=== PATIENT | female | born 1955 | race Caucasian/White ===

== ENCOUNTER 2016-11-17 15:01 | Inpatient (IN) | payer OTHER ==
[~2016-11-17] VITALS: Ht 170.2 cm; Wt 93.2 kg
[~2016-11-17 15:01] MED LIST: /ADVA50050 INH; /MOXI40TA OR; /PANT40TA OR; /TIOT18INH INH; ACET65TA OR; AMLO10TA OR; BACI500O8 TOP; CALCTAB93 PO; DIOV40TA PO; HYDR-727 PO; IPRASOL4 NEB; MUCI600T34 PO; NASONEX; OCEAN NASAL SPRAY; PRAV40TA PO; PRED10TA PO; PRED10TA2 OR; PRED5TAB OR; PREDPOW10 PO; TUMS500C OR; VENTAER INH; VICO5TAB OR
[2016-11-17] MEDS ORDERED: ALBUTEROL SULFATE 2.5 MG/0.5 ML INH NEB SOLN As Ordered ONE (18:08)
[2016-11-17] MEDS ORDERED: IPRATROPIUM 0.5MG/ALBUTEROL 2.5MG INH SOL UD 3ML (DUONEB)(J7620) As Ordered ONE (18:08)
[2016-11-17] MEDS ORDERED: methylPREDNISolone INJ 125 MG/2 ML VIAL (J2930) As Ordered ONE (18:39)
--- NOTE | 2016-11-17 19:10 | REP ---
Chest x-ray: Two views: History: Shortness of breath. Comparison chest x-ray: 10/07/2016. Findings: EKG monitoring electrodes overlie the chest. The lungs are symmetrically aerated and remain free of infiltrate. Pleural angles are sharp. Heart is at the upper range of normal in size unchanged. The aorta is tortuous. No pleural effusion or pulmonary edema seen. Impression: Borderline size heart. Otherwise no acute disease. Signed by Surinder Tracy MD 11/17/2016 07:48 P
[2016-11-17 19:26] LABS: EOS # 0.1 K/mm3 (0.0-0.50); EOS % 0.4 % (0.0-3.0); LARGE UNSTAINED CELL # 0.2 K/mm3 (0.0-0.4); LARGE UNSTAINED CELL % 1.1 % (0.0-4.0); LYMPH # 1.8 K/mm3 (1.5-4.5); LYMPH % 11.1 % (24.0-44.0); MEAN CORPUSCULAR HEMOGLOBIN 22.2 pg (27.0-33.0); MEAN CORPUSCULAR HGB CONC 28.8 g/dl (32.0-36.5); MEAN CORPUSCULAR VOLUME 76.8 fl (80.0-96.0); MONO # 0.6 K/mm3 (0.0-0.8); MONO % 3.8 % (0.0-5.0); NEUTROPHILS # 13.6 K/mm3 (1.8-7.7); NEUTROPHILS % 83.6 % (36.0-66.0); PLATELET COUNT, AUTOMATED 262 k/mm3 (150-450); RED CELL DISTRIBUTION WIDTH 18.9 % (11.5-14.5); WHITE BLOOD COUNT 16.2 K/mm3 (4.0-10.0)
[2016-11-17 19:27] LABS: ADD MORPHOLOGY? YES
[2016-11-17 20:07] LABS: DIFF SLIDE NUMBER 342
[2016-11-17 20:08] LABS: ANISOCYTOSIS 1+; HYPOCHROMASIA 1+
[2016-11-17 20:09] LABS: MICROCYTOSIS 1+; STOMATOCYTES 1+
[2016-11-17] MEDS ORDERED: SYMB16INH INH (20:26)
[2016-11-17] MEDS ORDERED: FURO40TA2 PO (20:26)
[2016-11-17] MEDS ORDERED: KEFL500C7 PO (20:26)
[2016-11-17] MEDS ORDERED: ALBU17IN INH (20:26)
[2016-11-17] MEDS ORDERED: ALBU83IN INH (20:26)
[2016-11-17] MEDS ORDERED: CALC600T10 PO (20:26)
[2016-11-17] MEDS ORDERED: PRED20TA PO (20:26)
[2016-11-17 20:58] LABS: ANION GAP 8 MEQ/L (8-16); BLOOD UREA NITROGEN 22 MG/DL (7-18); CALCIUM LEVEL 9.2 MG/DL (8.8-10.2); CARBON DIOXIDE LEVEL 34 MEQ/L (21-32); CHLORIDE LEVEL 100 MEQ/L (98-107); CREATININE FOR GFR 1.01 MG/DL (0.55-1.02); GLOMERULAR FILTRATION RATE 59.1 (>45); GLUCOSE, FASTING 103 MG/DL (80-110); POTASSIUM SERUM 3.9 MEQ/L (3.5-5.1); SODIUM LEVEL 142 MEQ/L (136-145)
--- NOTE | 2016-11-17 21:50 | REPUSA ---
Clinical history: Pain, swelling. Findings: The common femoral, superficial femoral, popliteal, and other deep venous structures compre ss normally and demonstrate normal color Doppler flow. Normal venous waveforms with augmentation are seen. Impression: No evidence of deep vein thrombosis in either femoral popliteal venous system.
[2016-11-17] MEDS ORDERED: METOCLOPRAMIDE INJ 10MG/2ML VIAL (J2765) IV PRN (22:15)
[2016-11-17] MEDS ORDERED: ALBUTEROL SULFATE 2.5 MG/0.5 ML INH NEB SOLN NEB PRN (22:15)
[2016-11-17 22:37] LABS: RETIC HEMOGLOBIN CONTENT CHr 25.7 PG (24-36); RETICULOCYTE ABSOLUTE ADVIA212 83 x10(9)/L (17-77)
[2016-11-17 22:50] LABS: FERRITIN 12 NG/ML (8-252); PERCENT SATURATION 6.7 % (13.2-37.4); TOTAL IRON BINDING CAPACITY 582 UG/DL (250-450); TOTAL PROTEIN 6.5 GM/DL (6.4-8.2)
[2016-11-17] MEDS ORDERED: ISOVUE-370 76% 100ML VIAL (Q9967) As Ordered ONE (23:32)
--- NOTE | 2016-11-17 23:54 | EDDOCDS ---
Physician Documentation [facility] Name: Prachi Fields Age: 61 yrs Sex: Female : 1955 Arrival Date: 11/17/2016 Time: 15:01 Bed 18 Private MD: Lucas Barr Abdul Disposition: 11/17/16 21:58 Hospitalization ordered by Joie Mahan for Inpatient Admission. Preliminary diagnosis are Atrial fibrillation and flutter - with rapid ventricular rate, Chronic obstructive pulmonary disease with (acute) exacerbation, Anemia, unspecified. - Bed requested for M ICU. - Status is Inpatient Admission. joe - Condition is Stable. - Problem is new. - Symptoms are unchanged. Historical: - Allergies: Erythromycin (Upset stomach); - Home Meds: 1. Albuterol Inhl prn 2. amlodipine 10 mg daily hasnt filled per pharmacist since january 2016 3. furosemide 40 mg Oral tab 1 tab once daily 4. prednisone 10 mg oral tab 1 tab 3 times per day 5. Symbicort 160-4.5 mcg/actuation inhalation HFAA 2 times per day 6. cephalexin 500 mg Oral cap 1 cap every 6 hours - PMHx: COPD; Hypercholesterolemia; Hypertension; Asthma; - PSHx: Ankle Arthroscopy- Left; - Social history: Smoking status: Patient states former smoker of tobacco. No barriers to communication noted, The patient speaks fluent Estonian. - Family history: Not pertinent. - : The pt / caregiver states he / she is not on anticoagulants. Home medication list is obtained from the patient. - Exposure Risk Screening:: None identified. Vital Signs: 11/17 15:03 BP 201 / 96; Pulse 106; Resp 22 S; Temp 97.8(O); Pulse Ox 100% on R/A; Weight 89.81 kg dd6 / 198 lbs (R); Height 5 ft. 7 in. (170.18 cm) (R); 17:40 BP 189 / 90; Pulse 131; Resp 24; Temp 98.0(TE); Pulse Ox 97% on R/A; Pain 10/10; ar3 17:47 BP 136 / 90 (auto/); jf3 17:50 Pulse 138 MON; Pulse Ox 97% ; jf3 18:02 BP 149 / 102 (auto/); jf3 18:03 Pulse 126 MON; Pulse Ox 97% ; jf3 18:17 BP 182 / 112 (auto/); jf3 18:18 Pulse 142 MON; Pulse Ox 98% ; jf3 18:32 BP 152 / 86 (auto/); jf3 18:32 Pulse 130 MON; Pulse Ox 95% ; jf3 18:46 Pulse 128 MON; Pulse Ox 96% ; jf3 18:47 BP 155 / 108 (auto/); jf3 19:02 BP 167 / 78 (auto/); jf3 19:02 Pulse 126 MON; Pulse Ox 94% ; jf3 19:17 BP 159 / 75 (auto/); jf3 19:17 Pulse 128 MON; Pulse Ox 94% ; jf3 19:32 BP 133 / 79 (auto/); jf3 19:32 Pulse 118 MON; Pulse Ox 95% ; jf3 19:47 BP 138 / 71 (auto/); jf3 19:47 Pulse 118 MON; Pulse Ox 95% ; jf3 20:02 BP 139 / 60 (auto/); jf3 20:02 Pulse 118 MON; Pulse Ox 95% ; jf3 20:17 BP 136 / 67 (auto/); jf3 20:18 Pulse 100 MON; Pulse Ox 96% ; jf3 20:32 BP 133 / 81 (auto/); jf3 20:32 Pulse 100 MON; Pulse Ox 95% ; jf3 20:47 BP 138 / 79 (auto/); jf3 20:47 Pulse 106 MON; Pulse Ox 96% ; jf3 21:02 BP 148 / 62 (auto/); jf3 21:02 Pulse 102 MON; Pulse Ox 96% ; jf3 21:17 BP 156 / 69 (auto/); jf3 21:17 Pulse 112 MON; Pulse Ox 96% ; jf3 21:17 Pulse 126; jf3 21:17 Pulse 101; jf3 21:32 BP 157 / 76 (auto/); jf3 21:32 Pulse 114 MON; Pulse Ox 96% ; jf3 21:47 BP 153 / 97 (auto/); jf3 21:47 Pulse 114 MON; Pulse Ox 96% ; jf3 22:02 BP 157 / 89 (auto/); jf3 22:02 Pulse 114 MON; Pulse Ox 96% ; jf3 22:17 BP 150 / 75 (auto/); jf3 22:17 Pulse 118 MON; Pulse Ox 95% ; jf3 22:32 BP 154 / 73 (auto/); jf3 22:32 Pulse 112 MON; Pulse Ox 97% ; jf3 22:46 Pulse 124 MON; Pulse Ox 95% ; jf3 22:47 BP 156 / 79 (auto/); jf3 23:01 Pulse 114 MON; Pulse Ox 95% ; jf3 23:02 BP 160 / 108 (auto/); jf3 23:32 BP 160 / 92 (auto/); tm5 23:32 Pulse 122 MON; tm5 15:03 Body Mass Index 31.01 (89.81 kg, 170.18 cm) dd6 MDM: 17:54 Skin Lifter Bacon/Pulse Ox/q 30 min VS ordered. br1 17:54 IV Saline Lock ordered. br1 17:54 Rhythm Strip to chart ordered. br1 17:54 Undress patient appropriately for examination ordered. br1 17:55 Albuterol-Ipratropium 1 neb Nebulizer every 20 minutes x3 ordered. br1 17:55 Solu-MEDROL 125 mg IVP once ordered. br1 17:55 Call Respiratory ordered. br1 17:55 B-Type Natiuretic Peptide Ordered. EDMS 17:55 Basic Metabolic Profile Ordered. EDMS 17:55 CBC with Diff Ordered. EDMS 17:55 Cardiac Injury Profile Ordered. EDMS 17:55 Troponin Ordered. EDMS 17:55 D-Dimer Quant Ordered. EDMS 17:55 Chest, 2 View (pa\E\lat) Ordered. EDMS 17:55 ECG WITH READING ER PHYS+CARDIAG ordered. EDMS 17:56 -Influenza A&B Rapid Antigen - Nose Ordered. EDMS 18:04 Call Respiratory complete. deg 18:11 Diltiazem 10 mg IVP once; administer over 2 minutes ordered. br1 18:28 [facility] Payment Agreement was scanned into Smart Panel and attached to record. zo 18:28 Financial registration complete. zo 19:29 RBC MORPH PROF NO CHARGE Ordered. EDMS 19:31 Diltiazem 20 mg IVP once; administer over 2 minutes ordered. br1 19:34 BED REQUEST+ADM ordered. EDMS 20:35 B-Type Natiuretic Peptide Reviewed. br1 20:35 CBC with Diff Reviewed. br1 20:35 D-Dimer Quant Reviewed. br1 20:35 -Influenza A&B Rapid Antigen - Nose Reviewed. br1 20:35 RBC MORPH PROF NO CHARGE Reviewed. br1 20:35 Chest, 2 View (pa\E\lat) Reviewed. br1 20:37 Ultrasound Bilateral LE R/O DVT Ordered. EDMS 21:03 Basic Metabolic Profile Reviewed. br1 21:03 Cardiac Injury Profile Reviewed. br1 21:03 Troponin Reviewed. br1 21:06 CT Chest Angio R/O PE Ordered. EDMS 21:53 Repeat EKG (put time details section) ordered. br1 21:55 Repeat EKG (put time details section) complete. ml3 21:56 ECG WITH READING ER PHYS ordered. EDMS 22:20 VITAMIN B12 LEVEL Ordered. EDMS 22:21 FOLATE Ordered. EDMS 22:21 IRON (FE) Ordered. EDMS 22:21 FERRITIN Ordered. EDMS 22:21 TOTAL IRON BINDING CAPACIT Ordered. EDMS 22:21 SERUM PROTEIN ELECTROPHORESIS Ordered. EDMS 22:21 CBC WITH DIFFERENTIAL Ordered. EDMS 22:21 BASIC METABOLIC PROFILE Ordered. EDMS 22:25 Admission / Observation Status ordered. EDMS 22:25 REGULAR DIET ordered. EDMS 22:32 RETICULOCYTE COUNT Ordered. EDMS Administered Medications: 17:56 Drug: Albuterol-Ipratropium 1 neb [ipratropium-albuterol 0.5 mg-3 mg(2.5 mg base)/3 mL rs5 nebulization soln (1 neb)] Route: Nebulizer; 18:02 Drug: Albuterol-Ipratropium 1 neb [ipratropium-albuterol 0.5 mg-3 mg(2.5 mg base)/3 mL rs5 nebulization soln (1 neb)] Route: Nebulizer; 18:12 Drug: Albuterol-Ipratropium 1 neb [ipratropium-albuterol 0.5 mg-3 mg(2.5 mg base)/3 mL rs5 nebulization soln (1 neb)] Route: Nebulizer; 19:16 Drug: Solu-MEDROL 125 mg [Solu-Medrol 500 mg intravenous solution (125 mg)] Route: IVP; jf3 Site: right antecubital; 21:16 Follow up: Response: No Adverse Reaction jf3 19:24 Drug: Diltiazem 10 mg [diltiazem 5 mg/mL intravenous solution (2 mL)] Route: IVP; Site: jf3 right antecubital; 21:17 Follow up: Pulse 126 bpm; Response: No significant change. jf3 20:04 Drug: Diltiazem 20 mg [diltiazem 5 mg/mL intravenous solution (4 mL)] Route: IVP; Site: jf3 right antecubital; 21:17 Follow up: Pulse 101 bpm; Response: HR decreased jf3 Signatures: Dispatcher [employer] EDMS Lola Moses, [employer] deg Barry, Emily Singh RN Brittanie Palma, [employer] ml3 Trino Barillas Brian, MD MD br1 Sara Case RN RN [id number] Johnie Lester RN RN jf3 Phoebe Guardado RN RN lmg Spurling, Richard RT rs5 The chart was reviewed and I authenticate all verbal orders and agree with the evaluation and treatment provided.Corrections: (The following items were deleted from the chart) 22:32 22:21 RETICULOCYTE COUNT ordered. EDMS EDMS Attachments: 18:28 [facility] Payment Agreement zo [id number]
--- NOTE | 2016-11-17 23:55 | EDDOCDS ---
Nurse's Notes [facility] Name: Prachi Fields Age: 61 yrs Sex: Female : 1955 Arrival Date: 11/17/2016 Time: 15:01 Bed 18 Private MD: Lucas Barr Abdul Diagnosis: Atrial fibrillation and flutter-with rapid ventricular rate;Chronic obstructive pulmonary disease with (acute) exacerbation;Anemia, unspecified Presentation: 11/17 15:13 Presenting complaint: Patient states: that she has been wheezing for the past 2 weeks. ms18 Pt has seen her doctor, Dr. Barr, and was given some medications. Pt states that these aren't enough to help her with the wheezing. Adult Sepsis Screening: The patient does not have new or worsening altered mentation. Patient's respiratory rate is less than 22. Systolic blood pressure is greater than 100. Patient has a qSOFA score of 0- Negative Sepsis Screen. Suicide/Homicide risk assessment- the patient denies having any suicidal and/or homicidal ideations and does not present with any other emotional, behavioral or mental health complaints. Status: Patient is not a service order dispatcher or dependent. Transition of care: patient was not received from another setting of care. 15:13 Method Of Arrival: Walkin/Carried/Asstd ms18 15:13 Acuity: BRANNON Level 3 ms18 Triage Assessment: 15:18 General: Appears in no apparent distress, comfortable, obese, Behavior is appropriate ms18 for age, cooperative, pleasant. Pain: Denies pain. HIV screening NA for this visit Offered previously. Neurological: Level of Consciousness is awake, alert, obeys commands, Oriented to person, place, time. Cardiovascular: Chest pain is denied. Respiratory: Onset: The symptoms/episode began/occurred 2 weeks ago, Airway is patent Respiratory effort is even, unlabored, Pt states that her lungs feel "tight" Reports shortness of breath on exertion. Derm: Skin is pink, warm & dry. Historical: - Allergies: Erythromycin (Upset stomach); - Home Meds: 1. Albuterol Inhl prn 2. amlodipine 10 mg daily hasnt filled per pharmacist since january 2016 3. furosemide 40 mg Oral tab 1 tab once daily 4. prednisone 10 mg oral tab 1 tab 3 times per day 5. Symbicort 160-4.5 mcg/actuation inhalation HFAA 2 times per day 6. cephalexin 500 mg Oral cap 1 cap every 6 hours - PMHx: COPD; Hypercholesterolemia; Hypertension; Asthma; - PSHx: Ankle Arthroscopy- Left; - Social history: Smoking status: Patient states former smoker of tobacco. No barriers to communication noted, The patient speaks fluent Estonian. - Family history: Not pertinent. - : The pt / caregiver states he / she is not on anticoagulants. Home medication list is obtained from the patient. - Exposure Risk Screening:: None identified. Screenin:12 Screening information is obtained from the patient. Fall risk: No risks identified. jf3 Assistance ADL's: requires no assistance with activities of daily living. Abuse/DV Screen: The patient / caregiver reports he/she is: not in a situation that causes fear, pain or injury. Nutritional screening: No deficits noted. Advance Directives: There is no active DNR order. home support is adequate. Assessment: 19:26 Adult Sepsis Screening: The patient does not have new or worsening altered mentation. jf3 Patient's respiratory rate is less than 22. Systolic blood pressure is greater than 100. General: Appears in no apparent distress, comfortable, Behavior is cooperative. Pain: Denies pain. Neurological: Level of Consciousness is awake, alert, Oriented to person, place, time. Cardiovascular: Capillary refill < 3 seconds Heart tones S1 S2 present Chest pain is denied. Respiratory: Airway is patent Respiratory effort is even, unlabored, Respiratory pattern is regular, symmetrical, Breath sounds are clear bilaterally. Reports shortness of breath. Derm: Skin is pink, warm & dry. 20:30 General: Appears in no apparent distress, comfortable, Behavior is cooperative, Pt jf3 resting supine on stretcher watching TV. Respirations easy and unlabored. Pt states breathing is improved. Call light in reach. Will continue to monitor. 21:30 General: Appears in no apparent distress, comfortable, Behavior is cooperative, Pt jf3 resting supine on stretcher watching TV. respirations easy and unlabored. Will continue to monitor. 22:30 General: Appears in no apparent distress, comfortable, Behavior is cooperative. Pain: jf3 Denies pain. Neurological: Level of Consciousness is awake, alert, Oriented to person, place, time. Cardiovascular: Capillary refill < 3 seconds. Respiratory: Airway is patent Respiratory effort is even, unlabored, Respiratory pattern is regular, symmetrical. Derm: Skin is pink, warm & dry. 23:44 General: pt returned from CT ready for transfer to PCU. tm5 Vital Signs: 15:03 BP 201 / 96; Pulse 106; Resp 22 S; Temp 97.8(O); Pulse Ox 100% on R/A; Weight 89.81 kg dd6 (R); Height 5 ft. 7 in. (170.18 cm) (R); 17:40 BP 189 / 90; Pulse 131; Resp 24; Temp 98.0(TE); Pulse Ox 97% on R/A; Pain 10/10; ar3 17:47 BP 136 / 90 (auto/); jf3 17:50 Pulse 138 MON; Pulse Ox 97% ; jf3 18:02 BP 149 / 102 (auto/); jf3 18:03 Pulse 126 MON; Pulse Ox 97% ; jf3 18:17 BP 182 / 112 (auto/); jf3 18:18 Pulse 142 MON; Pulse Ox 98% ; jf3 18:32 BP 152 / 86 (auto/); jf3 18:32 Pulse 130 MON; Pulse Ox 95% ; jf3 18:46 Pulse 128 MON; Pulse Ox 96% ; jf3 18:47 BP 155 / 108 (auto/); jf3 19:02 BP 167 / 78 (auto/); jf3 19:02 Pulse 126 MON; Pulse Ox 94% ; jf3 19:17 BP 159 / 75 (auto/); jf3 19:17 Pulse 128 MON; Pulse Ox 94% ; jf3 19:32 BP 133 / 79 (auto/); jf3 19:32 Pulse 118 MON; Pulse Ox 95% ; jf3 19:47 BP 138 / 71 (auto/); jf3 19:47 Pulse 118 MON; Pulse Ox 95% ; jf3 20:02 BP 139 / 60 (auto/); jf3 20:02 Pulse 118 MON; Pulse Ox 95% ; jf3 20:17 BP 136 / 67 (auto/); jf3 20:18 Pulse 100 MON; Pulse Ox 96% ; jf3 20:32 BP 133 / 81 (auto/); jf3 20:32 Pulse 100 MON; Pulse Ox 95% ; jf3 20:47 BP 138 / 79 (auto/); jf3 20:47 Pulse 106 MON; Pulse Ox 96% ; jf3 21:02 BP 148 / 62 (auto/); jf3 21:02 Pulse 102 MON; Pulse Ox 96% ; jf3 21:17 BP 156 / 69 (auto/); jf3 21:17 Pulse 112 MON; Pulse Ox 96% ; jf3 21:17 Pulse 126; jf3 21:17 Pulse 101; jf3 21:32 BP 157 / 76 (auto/); jf3 21:32 Pulse 114 MON; Pulse Ox 96% ; jf3 21:47 BP 153 / 97 (auto/); jf3 21:47 Pulse 114 MON; Pulse Ox 96% ; jf3 22:02 BP 157 / 89 (auto/); jf3 22:02 Pulse 114 MON; Pulse Ox 96% ; jf3 22:17 BP 150 / 75 (auto/); jf3 22:17 Pulse 118 MON; Pulse Ox 95% ; jf3 22:32 BP 154 / 73 (auto/); jf3 22:32 Pulse 112 MON; Pulse Ox 97% ; jf3 22:46 Pulse 124 MON; Pulse Ox 95% ; jf3 22:47 BP 156 / 79 (auto/); jf3 23:01 Pulse 114 MON; Pulse Ox 95% ; jf3 23:02 BP 160 / 108 (auto/); jf3 23:32 BP 160 / 92 (auto/); tm5 23:32 Pulse 122 MON; tm5 15:03 Body Mass Index 31.01 (89.81 kg, 170.18 cm) dd6 Vitals: 15:03 Log In Time: November 17, 2016 at 15:01. dd6 ED Course: 15:02 Patient visited by Blayne Adams PCA. dd6 15:02 Lucas Barr is Private Physician. dd6 15:02 Patient moved to Waiting dd6 15:04 Patient moved to Pre RCE dd6 15:15 Triage Initiated ms18 17:44 Patient moved to 18 ms18 17:47 Julián Najera MD is Attending Physician. br1 17:50 The patient / caregiver is instructed regarding the plan of care and ED course. jf3 17:50 Inserted saline lock: 20 gauge in right antecubital area The patient tolerated the jf3 procedure well. No procedures done that require assistance. 17:54 Patient visited by Julián Najera MD. br1 18:07 Patient has correct armband on for positive identification. Placed in gown. Bed in low ct3 position. Call light in reach. Side rails up X2. vehicle monitor technician on. Pulse ox on. NIBP on. 18:07 EKG done. (by ED staff). Reviewed by Julián Najera MD. ct3 18:08 Patient visited by Jayne Way PCA. ct3 18:28 [facility] Payment Agreement was scanned into [employer] and attached to record. zo 18:56 Jeannette Lundberg,RN is Primary Nurse. ko2 19:11 Patient visited by Leyda Noyola PCA. berna 19:12 Patient visited by Alin Carter PCA. kb5 19:13 -Influenza A&B Rapid Antigen - Nose Sent. jf3 19:13 D-Dimer Quant Sent. jf3 19:13 Troponin Sent. jf3 19:13 Cardiac Injury Profile Sent. jf3 19:13 CBC with Diff Sent. jf3 19:13 Basic Metabolic Profile Sent. jf3 19:13 B-Type Natiuretic Peptide Sent. jf3 19:28 Patient visited by Johnie Lester,[place]. jf3 19:37 RBC MORPH PROF NO CHARGE Sent. jf3 19:46 Chest, 2 View (pa\\E\\lat) Returned. EDMS 20:10 Patient visited by Alin Carter PCA. kb5 20:12 Patient visited by Johnie Lester,[place]. jf3 20:52 Patient moved to Ultrasound dmg 21:16 Patient visited by Johnie Lester,[place]. jf3 21:21 Patient moved to 18 dmg 21:58 Joie Mahan is Hospitalizing Provider. br1 22:00 Patient visited by Alisha Clinton PCA. cln 22:00 EKG done. (by ED staff). Reviewed by Julián Najera MD. cln 22:16 Ultrasound Bilateral LE R/O DVT Returned. EDMS 22:49 Patient visited by Johnie Lester,[place]. jf3 Administered Medications: 17:56 Drug: Albuterol-Ipratropium 1 neb [ipratropium-albuterol 0.5 mg-3 mg(2.5 mg base)/3 mL rs5 nebulization soln (1 neb)] Route: Nebulizer; 18:02 Drug: Albuterol-Ipratropium 1 neb [ipratropium-albuterol 0.5 mg-3 mg(2.5 mg base)/3 mL rs5 nebulization soln (1 neb)] Route: Nebulizer; 18:12 Drug: Albuterol-Ipratropium 1 neb [ipratropium-albuterol 0.5 mg-3 mg(2.5 mg base)/3 mL rs5 nebulization soln (1 neb)] Route: Nebulizer; 19:16 Drug: Solu-MEDROL 125 mg [Solu-Medrol 500 mg intravenous solution (125 mg)] Route: IVP; jf3 Site: right antecubital; 21:16 Follow up: Response: No Adverse Reaction jf3 19:24 Drug: Diltiazem 10 mg [diltiazem 5 mg/mL intravenous solution (2 mL)] Route: IVP; Site: jf3 right antecubital; 21:17 Follow up: Pulse 126 bpm; Response: No significant change. jf3 20:04 Drug: Diltiazem 20 mg [diltiazem 5 mg/mL intravenous solution (4 mL)] Route: IVP; Site: jf3 right antecubital; 21:17 Follow up: Pulse 101 bpm; Response: HR decreased jf3 RT: 18:12 Initial Med Neb Given as ordered Subsequent Med Neb Given as ordered Patient was rs5 reinforced on procedure Patient tolerated procedure well without adverse effect. Respiratory: Respiratory effort is even, unlabored, Respiratory pattern is regular symmetrical, Breath sounds are diminished Breath sounds with wheezes bilaterally. Reports shortness of breath on exertion cough that is non-productive. Order Results: Lab Order: B-Type Natiuretic Peptide; SPEC'M 11/17/16 19:10 Test: BRAIN NATRIURETIC PEPTIDE; Value: 502; Range: <100; Abnormal: Above high normal; Units: PG/ML; Status: F Lab Order: Basic Metabolic Profile; SPEC'M 11/17/16 19:10 Test: GLUCOSE, FASTING; Value: 103; Range: 80-110; Units: MG/DL; Status: F Test: BLOOD UREA NITROGEN; Value: 22; Range: 7-18; Abnormal: Above high normal; Units: MG/DL; Status: F Test: CREATININE FOR GFR; Value: 1.01; Range: 0.55-1.02; Units: MG/DL; Status: F Test: GLOMERULAR FILTRATION RATE; Value: 59.1; Range: >45; Status: F Test: SODIUM LEVEL; Value: 142; Range: 136-145; Units: MEQ/L; Status: F Test: POTASSIUM SERUM; Value: 3.9; Range: 3.5-5.1; Units: MEQ/L; Status: F Test: CHLORIDE LEVEL; Value: 100; Range: 98-107; Units: MEQ/L; Status: F Test: CARBON DIOXIDE LEVEL; Value: 34; Range: 21-32; Abnormal: Above high normal; Units: MEQ/L; Status: F Test: ANION GAP; Value: 8; Range: 8-16; Units: MEQ/L; Status: F Test: CALCIUM LEVEL; Value: 9.2; Range: 8.8-10.2; Units: MG/DL; Status: F Test Note: ; Units are mL/min/1.73 m2 Chronic Kidney Disease Staging per NKF: Stage I & II GFR >=60 Normal to Mildly Decreased Stage III GFR 30-59 Moderately Decreased Stage IV GFR 15-29 Severely Decreased Stage V GFR <15 Very Little GFR Left ESRD GFR <15 on [employer] Lab Order: CBC with Diff; SPEC'M 11/17/16 19:10 Test: WHITE BLOOD COUNT; Value: 16.2; Range: 4.0-10.0; Abnormal: Above high normal; Units: K/mm3; Status: F Test: RED BLOOD COUNT; Value: 3.83; Range: 4.00-5.40; Abnormal: Below low normal; Units: M/mm3; Status: F Test: HEMOGLOBIN; Value: 8.5; Range: 12.0-16.0; Abnormal: Below low normal; Units: g/dl; Status: F Test: HEMATOCRIT; Value: 29.4; Range: 36.0-47.0; Abnormal: Below low normal; Units: %; Status: F Test: MEAN CORPUSCULAR VOLUME; Value: 76.8; Range: 80.0-96.0; Abnormal: Below low normal; Units: fl; Status: F Test: MEAN CORPUSCULAR HEMOGLOBIN; Value: 22.2; Range: 27.0-33.0; Abnormal: Below low normal; Units: pg; Status: F Test: MEAN CORPUSCULAR HGB CONC; Value: 28.8; Range: 32.0-36.5; Abnormal: Below low normal; Units: g/dl; Status: F Test: RED CELL DISTRIBUTION WIDTH; Value: 18.9; Range: 11.5-14.5; Abnormal: Above high normal; Units: %; Status: F Test: PLATELET COUNT, AUTOMATED; Value: 262; Range: 150-450; Units: k/mm3; Status: F Test: NEUTROPHILS %; Value: 83.6; Range: 36.0-66.0; Abnormal: Above high normal; Units: %; Status: F Test: LYMPH %; Value: 11.1; Range: 24.0-44.0; Abnormal: Below low normal; Units: %; Status: F Test: MONO %; Value: 3.8; Range: 0.0-5.0; Units: %; Status: F Test: EOS %; Value: 0.4; Range: 0.0-3.0; Units: %; Status: F Test: BASO %; Value: 0.0; Range: 0.0-1.0; Units: %; Status: F Test: LARGE UNSTAINED CELL %; Value: 1.1; Range: 0.0-4.0; Units: %; Status: F Test: NEUTROPHILS #; Value: 13.6; Range: 1.8-7.7; Abnormal: Above high normal; Units: K/mm3; Status: F Test: LYMPH #; Value: 1.8; Range: 1.5-4.5; Units: K/mm3; Status: F Test: MONO #; Value: 0.6; Range: 0.0-0.8; Units: K/mm3; Status: F Test: EOS #; Value: 0.1; Range: 0.0-0.50; Units: K/mm3; Status: F Test: BASO #; Value: 0.0; Range: 0.0-0.2; Units: K/mm3; Status: F Test: LARGE UNSTAINED CELL #; Value: 0.2; Range: 0.0-0.4; Units: K/mm3; Status: F Test: PLATELET ESTIMATE; Range: NORMAL; Status: I Lab Order: Cardiac Injury Profile; SPEC'M 11/17/16 19:10 Test: CPK CREATINE PHOSPHOKINASE; Value: 32; Range: 26-192; Units: U/L; Status: F Test: CK-MB VALUE MASS; Value: 1.9; Range: 0.0-3.6; Units: NG/ML; Status: F Test: MB/CK RELATIVE INDEX; Value: 5.93; Range: < OR =4; Abnormal: Above high normal; Status: F Test Note: ; DIAGNOSIS CRITERIA MMB ng/ml Relative Index (RI) NON-AMI < or = 5 N/A [place] > 5 < or = 4 AMI > 5 > 4 Lab Order: Troponin; SPEC'M 11/17/16 19:10 Test: TROPONIN I; Value: < 0.02; Range: < 0.10; Units: NG/ML; Status: F Test Note: ; Troponin I Reference Interval for HDmessaging LOCI: 99th Percentile= 0.00-0.045 ng/ml Risk Stratification: <= 0.10 ng/ml Decreased Risk for Adverse Clinical Events. 0.10-1.50 ng/ml Increased Risk for Adverse Clinical Events. Evaluation of additional criterion and/or repeat testing in 2-6 hours is suggested to rule out myocardial damage. >= 1.50 ng/ml Indicative of Myocardial Injury. Lab Order: D-Dimer Quant; SPEC'M 11/17/16 19:10 Test: D-DIMER QUANT; Value: 1337.7; Range: <500; Abnormal: Above high normal; Units: ng/ml; Status: F Lab Order: -Influenza A&B Rapid Antigen - Nose; SPEC'M 11/17/16 19:10 Test: INFLUENZA A RAPID SCR by ICA; Value: INFLUENZA A RESULTS NEGATIVE; Status: F Test: INFLUENZA A RAPID SCR by ICA; Value: Comments:; Status: F Test: INFLUENZA B RAPID SCR by ICA; Value: INFLUENZA B RESULTS NEGATIVE; Status: F Test Note: ; The Influenza test is a direct rapid immunoassay for the qualitative detection of Influenza viral antigen. Cell culture (Viral Culture) testing should be considered to confirm NEGATIVE results and to assist in detecting other viruses that can provide similar clinical symptoms. Please contact the lab within 24 hours ([phone]) if confirmatory testing is desired. Lab Order: RBC MORPH PROF NO CHARGE; SPEC'M 11/17/16 19:10 Test: HYPOCHROMASIA; Value: 1+; Status: F Test: ANISOCYTOSIS; Value: 1+; Status: F Test: MICROCYTOSIS; Value: 1+; Status: F Test: STOMATOCYTES; Value: 1+; Status: F Test: PLATELET ESTIMATE; Value: NORMAL; Range: NORMAL; Status: F Lab Order: VITAMIN B12 LEVEL; [facility] 11/17/16 22:33 Test: VITAMIN B12 LEVEL; Range: 247-911; Units: PG/ML; Status: I Lab Order: FOLATE; [facility] 11/17/16 22:33 Test: FOLATE; Range: >5.4; Units: NG/ML; Status: I Lab Order: FERRITIN; [facility] 11/17/16 22:33 Test: FERRITIN; Value: 12; Range: 8-252; Units: NG/ML; Status: F Lab Order: TOTAL IRON BINDING CAPACIT; [facility] 11/17/16 22:33 Test: IRON (FE); Value: 39; Range: 50-170; Abnormal: Below low normal; Units: UG/DL; Status: F Test: TOTAL IRON BINDING CAPACITY; Value: 582; Range: 250-450; Abnormal: Above high normal; Units: UG/DL; Status: F Test: PERCENT SATURATION; Value: 6.7; Range: 13.2-37.4; Abnormal: Below low normal; Units: %; Status: F Lab Order: SERUM PROTEIN ELECTROPHORESIS; [facility] 11/17/16:33 Test: ALBUMIN %; Range: 55.8-66.1; Units: %; Status: I Test: PBWQN-7-ATURWQXN %; Range: 2.9-4.9; Units: %; Status: I Test: SHATR-6-TCHSHBFHP %; Range: 7.1-11.8; Units: %; Status: I Test: QZAA-5-XFMAVOULX %; Range: 4.7-7.2; Units: %; Status: I Test: YHGX-4-BEXLYHRRR %; Range: 3.2-6.5; Units: %; Status: I Test: GAMMA GLOBULIN %; Range: 11.1-18.8; Units: %; Status: I Test: ALBUMIN; Range: 3.29-5.55; Units: GM/DL; Status: I Test: KDSDD-2-LOLPPULYU; Range: 0.17-0.41; Units: GM/DL; Status: I Test: YWSBM-4-BJQWFFROF; Range: 0.42-0.99; Units: GM/DL; Status: I Test: KVEE-6-PKLKOGTUZ; Range: 0.28-0.60; Units: GM/DL; Status: I Test: BBAT-4-OJFMVVTEN; Range: 0.19-0.55; Units: GM/DL; Status: I Test: GAMMA GLOBULINS; Range: 0.65-1.58; Units: GM/DL; Status: I Test: TOTAL PROTEIN; Value: 6.5; Range: 6.4-8.2; Units: GM/DL; Status: F Test: SPEP INTERPRETATION; Status: I Lab Order: RETICULOCYTE COUNT; SPEC'M 11/17/16 19:10 Test: RETICULOCYTE % [id number]; Value: 2.10; Range: 0.5-1.5; Abnormal: Above high normal; Units: %; Status: F Test: RETICULOCYTE ABSOLUTE [id number]; Value: 83; Range: 17-77; Abnormal: Above high normal; Units: x10(9)/L; Status: F Test: RETIC HEMOGLOBIN CONTENT CHr; Value: 25.7; Range: 24-36; Units: PG; Status: F Radiology Order: Chest, 2 View (pa\\E\\lat) Test: Chest, 2 View (pa\\E\\lat) REASON FOR EXAMINATION: Shortness of Breath; Chest x-ray: Two views:; ; History: Shortness of breath.; ; Comparison chest x-ray: 10/07/2016.; ; Findings: EKG monitoring electrodes overlie the chest. The lungs are; symmetrically aerated and remain free of infiltrate. Pleural angles are sharp.; Heart is at the upper range of normal in size unchanged. The aorta is tortuous.; No pleural effusion or pulmonary edema seen.; ; Impression:; ; Borderline size heart. Otherwise no acute disease.; ; ; Signed by; Surinder Tracy MD 11/17/2016 07:48 P; Radiology Order: Ultrasound Bilateral LE R/O DVT Test: Ultrasound Bilateral LE R/O DVT REASON FOR EXAMINATION: Deformity/Swelling; ; Clinical history: Pain, swelling.; Findings: The common femoral, superficial femoral, popliteal, and other deep venous structures compre; ss normally and demonstrate normal color Doppler flow. Normal venous waveforms with augmentation are; seen.; Impression:; No evidence of deep vein thrombosis in either femoral popliteal venous system.; ; Outcome: 21:58 Decision to Hospitalize by Provider. br1 23:16 Discharge Assessment: patient administered narcotics - no. The following High Risk [facility] Discharge criteria are identified: None. Admitted to ICU accompanied by nurse, accompanied by tech, via stretcher, on monitor, with chart. Condition: stable. CT Study completed. Ultrasound Study completed. Admission hand-off: Report called to Winter Farias RN. Property :Personal belongings accompany Pt. 23:53 Patient left the ED. joe Signatures: Dispatcher [employer] EDMS Emily Reddy RN RN jan Gunn, Deanne dmg Olin, Zoeann zo Bancroft, Kristopher, BELT AND LINK ASSEMBLY SUPERVISOR BEL[employer] AND [employer]INK ASSEMBLY SUPERVISOR kb5 Julián Najera MD MD br1 Blayne Adams, BELT AND LINK ASSEMBLY SUPERVISOR [employer]INK ASSEMBLY SUPERVISOR dd6 Nicole Rodrigueza, BELT AND LINK ASSEMBLY SUPERVISOR [employer]INK ASSEMBLY SUPERVISOR ar3 Leyda Noyola, BELT AND LINK ASSEMBLY SUPERVISOR BELT AND LINK ASSEMBLY SUPERVISOR berna Way Jayne, BELT AND LINK ASSEMBLY SUPERVISOR BELT AND LINK ASSEMBLY SUPERVISOR ct3 Ricardo Soto,RT RT rs5 Jeannette Lundberg,RN RN ko2 Sara Case,RN RN ms18 Johnie Lester,RN RN jf3 Alisha Clinton, BELT AND LINK ASSEMBLY SUPERVISOR BELT AND LINK ASSEMBLY SUPERVISOR cln Peyton Duke,RN RN tm5 MTDD
[2016-11-18] VITALS: BP 154/83
--- NOTE | 2016-11-18 | REPUSA ---
CT angiogram of the chest Clinical statement: Chest pain and shortness of breath. Technique: Multiple axial CT images were obtained from the thoracic inlet through the upper abdomen a fter a bolus administration of nonionic intravenous contrast. Coronal and sagittal reconstructions we re also obtained. Comparison: 12/14/2011. Findings: The pulmonary arteries are well-opacified with contrast, with no intraluminal filling defec ts to suggest embolism. The thoracic aorta is unremarkable. Thyroid gland is within normal limits. Th ere is no thoracic lymphadenopathy. There are no pericardial or pleural effusions. The lungs are tamanna r. Limited imaging of the upper abdomen is unremarkable. There are no suspicious osseous lesions. Impression: Unremarkable CT examination of the chest. No evidence of pulmonary embolism.
[2016-11-18] MEDS: methylPREDNISolone INJ 40 MG/1 ML VIAL (J2920) IV SCH ×4 (00:24→18:04)
[2016-11-18] MEDS: CEPHALEXIN 500 MG CAP PO SCH ×5 (00:24→23:52)
[2016-11-18] MEDS: IPRATROPIUM 0.5MG/ALBUTEROL 2.5MG INH SOL UD 3ML (DUONEB)(J7620) NEB SCH ×4 (02:05→20:00)
--- NOTE | 2016-11-18 03:25 | HPE ---
DATE OF ADMISSION: 11/17/2016 PRIMARY CARE PROVIDER: Dr. Radha Barr CHIEF COMPLAINT: Increasing shortness of breath and wheezing for two weeks. PAST MEDICAL HISTORY: 1. Chronic obstructive pulmonary disease (COPD). 2. Recent history of bilateral cellulitis getting oral antibiotics at this point. 3. Chronic anemia. 4. Diastolic heart failure. 5. Diverticulosis. 6. Hypertension. 7. Hypercholesterolemia. 8. Asthma. HISTORY OF PRESENT ILLNESS: This is a 61-year-old female who has been gradually developing worsening of shortness of breath over the past two weeks with increased wheezing requiring more nebulizers. Patient also had bilateral lower extremity cellulitis for which she got one week of intramuscular (IM) antibiotics from the primary medical doctor (PMD) and currently she is taking cephalexin by mouth. On , she went for her IM injection when she complained of worsening shortness of breath. At that time, she was prescribed prednisone 30 mg daily; however, this morning her breathing was very bad, so she took 40 mg and even with that her breathing did not improve, so she came to the emergency room for evaluation. Patient denied any fever or chills. Does have some dry cough. Denied any nausea, vomiting, or abdominal pain. She has been having some diarrhea after she started taking the antibiotics. She says her legs are 95% better. In the emergency department (ED), the patient had a chest x-ray which showed chronic changes; no acute disease. Also, patient had a deep vein thrombosis (DVT) scan done of both lower extremities because of elevated D-dimer, which was negative. Patient felt better after nebulizers. Patient was also noted to have atrial fibrillation (AFib) with rapid ventricular response (RVR) and was given diltiazem IV with improvement in heart rate from 130s to 110s. Subsequently, hospitalist service was consulted for admission for COPD exacerbation and AFib with RVR. PAST SURGICAL HISTORY: Ankle arthroscopy. ALLERGIES: ERYTHROMYCIN, causes upset stomach. SOCIAL HISTORY: Former smoker. Does not abuse alcohol or drugs. FAMILY HISTORY: Nothing pertinent. HOME MEDICATIONS: - albuterol MDI two puffs inhalation four times a day as needed - albuterol sulfate 2.5 mg in nebulizers four times a day as needed - Symbicort 160/4.5 two puffs inhalation twice a day - calcium 1800 mg by mouth daily - cephalexin 500 mg by mouth every six hours - Lasix 40 mg daily - prednisone 40 mg daily REVIEW OF SYSTEMS: All 10-point review of systems were negative except those mentioned in history of present illness (HPI). PHYSICAL EXAMINATION: VITAL SIGNS: Blood pressure 139/60, pulse 110, respiratory rate 22, temperature 98, pulse oximetry 95% in room air. GENERAL: Patient awake, alert, oriented times three, sitting up in bed in no acute distress. HEENT: Normocephalic, atraumatic. Moist mucous membranes. Anicteric eyes. CHEST: Clear to auscultation. Good air entry. Some faint wheezing present. CARDIOVASCULAR: S1, S2 irregular, tachycardic. No rub, murmur, or gallop. ABDOMEN: Obese, soft, nontender. Bowel sounds present. EXTREMITIES: No edema. LABORATORY DATA: WBC 16.2, hemoglobin 8.5, platelets 262. Reticulocyte count 2.1% without correction. Sodium 142, potassium 3.9, chloride 100, bicarbonate 34, BUN 22, creatinine 1, glucose 103, calcium 9.2. Cardiac enzymes negative, BNP 502. Ferritin 12, iron 39. TSH 6.7%. ASSESSMENT AND PLAN: This is a 61-year-old female admitted for a atrial fibrillation (AFib) with rapid ventricular response (RVR) and chronic obstructive pulmonary disease (COPD) exacerbation. 1. COPD exacerbation. We will continue with albuterol ipratropium, budesonide nebulizers as well as IV methylprednisolone. We will also continue with cephalexin as patient has already been taking this for cellulitis. We will also give formoterol nebulizers. 2. AFib with RVR. We will start the patient on diltiazem 30 mg every six hours. We will avoid metoprolol at this point because of COPD exacerbation. 3. History of cellulitis. Completing course with Keflex will continue. 4. Chronic diastolic congestive heart failure. We will continue with Lasix. 5. Hypertension. We will hold amlodipine and change to diltiazem, both for AFib as well as hypertension. 6. Anemia. Patient has been having chronic anemia for the past two years, shows iron deficiency. Had colonoscopy more than 10 years ago, which showed diverticulosis. We will start the patient on iron supplementation; however, we will order fecal occult blood and patient will need colonoscopy as an outpatient. Also, have ordered serum protein electrophoresis. 7. Leukocytosis, possibly related to steroid use as an outpatient. We will continue to monitor. 8. Deep vein thrombosis (DVT) prophylaxis has been ordered. 9. Gastrointestinal (GI) prophylaxis has been ordered.
[2016-11-18 04:00] VITALS: BP 135/73
[2016-11-18 05:31] LABS: CALCIUM LEVEL 9.3 MG/DL (8.8-10.2); CREATININE FOR GFR 1.21 MG/DL (0.55-1.02); POTASSIUM SERUM 4.3 MEQ/L (3.5-5.1)
[2016-11-18 05:39] LABS: BASO % 0.1 % (0.0-1.0); EOS % 0.2 % (0.0-3.0); LARGE UNSTAINED CELL # 0.1 K/mm3 (0.0-0.4); LARGE UNSTAINED CELL % 0.5 % (0.0-4.0); LYMPH # 0.5 K/mm3 (1.5-4.5); LYMPH % 3.5 % (24.0-44.0); MEAN CORPUSCULAR HEMOGLOBIN 22.7 pg (27.0-33.0); MEAN CORPUSCULAR HGB CONC 29.1 g/dl (32.0-36.5); MONO # 0.3 K/mm3 (0.0-0.8); MONO % 1.7 % (0.0-5.0); NEUTROPHILS # 14.5 K/mm3 (1.8-7.7); NEUTROPHILS % 94.1 % (36.0-66.0); PLATELET COUNT, AUTOMATED 267 k/mm3 (150-450); RED CELL DISTRIBUTION WIDTH 18.9 % (11.5-14.5); WHITE BLOOD COUNT 15.4 K/mm3 (4.0-10.0)
[2016-11-18 08:00] VITALS: BP 140/74
[2016-11-18] MEDS: BUDESONIDE 0.5 MG/2 ML INHALATION SUSPENSION INH SCH ×2 (08:53→20:29)
[2016-11-18] MEDS: FORMOTEROL FUMARATE 20 MCG/2 ML INHALATION SOLUTION (PERFOROMIST) INH SCH ×2 (08:54→20:29)
[2016-11-18] MEDS: PANTOPRAZOLE 40MG TAB (PROTONIX) PO SCH (08:56)
[2016-11-18] MEDS ORDERED: FUROSEMIDE 40 MG TAB PO SCH (09:00)
[2016-11-18] MEDS ORDERED: ENOXAPARIN 40 MG/0.4 ML SYRINGE (J1650) SC SCH (09:00)
[2016-11-18] MEDS: DOCUSATE SODIUM 100 MG CAP PO SCH ×2 (10:34→19:58)
[2016-11-18] MEDS: FERROUS SULFATE 325MG TAB PO SCH ×3 (10:34→19:57)
[2016-11-18 10:43] LABS: ALBUMIN % 58.4 % (55.8-66.1); GAMMA GLOBULIN % 11.6 % (11.1-18.8)
[2016-11-18] MEDS ORDERED: ENOXAPARIN 60 MG/0.6 ML SYR (J1650) SC ONE (11:00)
[2016-11-18 11:16] LABS: FOLATE 5.8 NG/ML (>5.4); VITAMIN B12 LEVEL 434 PG/ML (247-911)
[2016-11-18 12:00] VITALS: BP 127/75
[2016-11-18 16:00] VITALS: BP 127/78
[2016-11-18] MEDS ORDERED: DIGOXIN INJ 0.5 MG/2 ML AMP (J1160) IV STA (19:05)
[2016-11-18] MEDS ORDERED: DIGOXIN 0.25 MG TAB PO ONE (19:30)
[2016-11-18 20:00] VITALS: BP 135/83
[2016-11-18] MEDS: ENOXAPARIN 100MG/1ML SYRINGE (J1650) SC SCH (20:14)
[2016-11-18] MEDS ORDERED: SPIRONOLACTONE 25 MG TAB PO ONE (20:30)
[2016-11-18] MEDS ORDERED: ATORVASTATIN 20 MG TAB PO SCH (21:00)
[2016-11-18] MEDS ORDERED: ENOXAPARIN 100MG/1ML SYRINGE (J1650) SC SCH (21:00)
[2016-11-18] MEDS: FUROSEMIDE 40 MG/4 ML VIAL (J1940) IV SCH ×2 (21:01→23:51)
[2016-11-18 21:04] LABS: CREATININE FOR GFR 1.32 MG/DL (0.55-1.02); GLOMERULAR FILTRATION RATE 43.4 (>45)
--- NOTE | 2016-11-18 21:15 | CR ---
DATE OF CONSULTATION: 11/18/2016 CARDIOLOGY CONSULTATION REFERRING PHYSICIAN: Dr. Haleigh Wynne INDICATION: Atrial fibrillation with rapid ventricular response. HISTORY: This 61-year-old (second time) mother of one grown son, resident of [place] who works at [employer], has been followed by Dr. Barr for multiple medical problems including smoking induced wheezy bronchitis, obesity, and hypertension. She claims for the past year to have had at least a dozen episodes of abrupt onset palpitations. These episodes would usually last approximately 5 minutes and appear to respond to vagal maneuvers. Brief episodes not associated with other cardiovascular complaints. The longest episode she has experienced lasted approximately 2 hours. Her current episode that led to ER presentation, she believes started earlier this morning and was associated with steadily worsening shortness of breath. Initial vital signs in the emergency room indicated pulse rate of 106, but ultimately had an EKG which showed atrial fibrillation with rapid ventricular response of approximately 130-140 beats per minute. Blood pressure was 200/96, respiratory rate to 22 per minute, oxygen saturation 100% on room air. In the emergency room she was given controlled supplemental oxygen with three doses of DuoNebs as well as two doses of diltiazem IV. She was admitted to the intensive care unit and cardiology consultation was placed. At this point she feels her breathing has considerably improved. OTHER CARDINAL CARDIAC SYMPTOMS: Despite her multiple coronary risk factors, denies having had a problem with chest, jaw or arm discomfort. Has not previously been known to have an abnormal EKG. No prior stress testing. However, 11/12/2014, ER [facility] EKG is read as sinus tachycardia at 122 beats per minute with possible inferior and lateral myocardial infarctions. ER tracing 12/14/2011 also was read as sinus tachycardia with poor R-wave progression, left atrial conduction disturbance, and subtle ST/T-wave abnormalities. Has had a long smoking history with history of wheezy bronchitis since 2004. Related to exacerbations of her condition was hospitalized 2011 and 2014. Last hospitalization she required intubation and mechanical ventilation. Has been on bronchodilator therapy and intermittent prednisone therapy for the past several years. Had been followed by Dr. Roland Fenton, pulmonary medicine. At this point has a variable cough productive of clear white sputum. No history of hemoptysis. Remote history of "walking pneumonia." Variable effort dyspnea. Had been a smoker since age 16. Had stopped for a period of 10 years only to resume again and finally stopped at the time of her hospitalization in 2012, would smoke less than one pack per day. Usually sleeps well without orthopnea or nocturnal dyspnea. No history of nocturia. Unaware of previous rheumatic fever. Heart murmur was detected leading to echocardiogram 01/14/2012, which reportedly showed normal left ventricular size and systolic function with left atrium upper limits of normal and Doppler evidence of an impairment of LV diastolic relaxation. Normal right heart chamber sizes and estimated pulmonary arterial pressure. Normal IVC size and collapse. No valvular abnormality or pericardial effusion. Treated hypertension since at least 2003. Longstanding weight problem (weighed 130 pounds at age 17; maximum weight 235 pounds 2011; her weight she claims has been fairly stable the past year at approximately 214 pounds). Palpitations as mentioned above. No previously documented atrial fibrillation. Does drink hot chocolate frequently but avoids coffee or tea. Will occasionally have caffeinated soda. Admits to drinking several alcoholic beverages 3-4 times a week. No history of thyroid dysfunction. Current nonsmoker. History of intermittent rhinitis/sinusitis, treated with Flonase. Avoids other [id number] decongestants. No energizer or diet pill use. Denies history of near syncope or syncope. Denies lateralizing neurological deficits, flank pain, hematuria or blue toe syndrome. Denies claudication. History of varicose veins with previous vein stripping 1999. No history of phlebitis. Has had intermittent lower leg swelling for years. Has been treated with diuretic therapy, Lasix, the past 4 months because of her dependent edema. CORONARY RISK FACTORS: Age, postmenopausal status. Longstanding hypertension. Prior smoking. Hypercholesterolemia with values as high as 312 dating back to at least 2003. Family history of premature sudden following myocardial infarction, father in his 40s. No known symptomatic carotid vascular disease. REVIEW OF SYSTEMS: Denies fever, chills or night sweats. Wears corrective lenses the past 6 years. No hearing problems. Treated hiatal hernia/reflux disease on omeprazole the past year. Denies abdominal pains. Has a history of hemorrhoids since childbirth of her son. Occasional hemorrhoidal bleeding. Denies dysuria or known renal insufficiency. Right knee arthralgia followed by Dr. Montero, orthopedics. All other systems review is negative. MEDICATIONS: Medications at home have included: - amlodipine 10 mg daily - furosemide 40 mg daily - albuterol inhaler as needed for dyspnea - Symbicort 160-4.5 two inhalations daily - cephalexin 500 mg tablets one capsule every 6 hours - prednisone 10 mg tablets one tablet three times a day for the time being because of her exacerbation of COPD ALLERGIES: None known. Erythromycin causes GI upset. PHYSICAL EXAMINATION: CONSTITUTIONAL: Pleasant, obese, slightly barrel-chested, late middle-aged woman currently comfortable, lying with the head of bed elevated 30 degrees. No pallor or distress. VITAL SIGNS: Heart rate 110-120 beats per minute and irregularly irregular, blood pressure 135/80 supine, 130/76 sitting with legs dependent (both arms). Respiratory rate to 20 per minute, oxygen saturation 95% on room air. Low grade temperature as high as 100 degrees earlier today. Weight 214 pounds, height 67 inches, BMI 33.5. EYES: Slight senile arcus, no pallor or icterus. No xanthelasma. ENT/MOUTH: No upper teeth and missing lower teeth. Normal oral moisture. No central cyanosis. NECK: Trachea midline. Thyroid did not appear to be enlarged. Neck veins were believed to be elevated approximately 6 cm above the sternal angle? RESPIRATORY: Increased anteroposterior chest diameter with slightly reduced chest excursion but adequate air entry over both lung stanley. Few scattered inspiratory rales with prolongation of expiration but no audible wheeze at this time. CARDIOVASCULAR: Apical impulse questionable lateral midclavicular line with the patient sitting up or leaning forward. 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 No pericardial rub. Normal carotid upstrokes with variable volume again because of her arrhythmia. No bruits. Upper extremity and femoral pulses were symmetrical and normal. Pedal pulses slightly difficult to palpate because of dependent edema. Has pitting edema at least one-third up both lower legs, few dilated superficial venules. No sacral pitting edema. Abdominal aorta was not palpable because of obesity. No abdominal bruits. GASTROINTESTINAL (GI): Obese, soft, nontender abdomen with no apparent hepatosplenomegaly. Rectal examination not indicated but stool will be collected for occult blood. MUSCULOSKELETAL: No obvious joint deformities. Normal spine curvature. Normal muscular strength and tone. NEUROLOGIC/PSYCHIATRIC: Bright, alert and oriented, gave a lucid history. Eye, facial, extremity movements were symmetrical and normal. No abnormal movements. SKIN: No obvious pallor or icterus. Skin changes both lower legs related to venous insufficiency and swelling as well as superficial cellulitis left lower leg. INVESTIGATIONS: Chest xray: PA and left lateral studies performed yesterday at 06:57 p.m. were reviewed independently and showed heart size upper limits of normal with CT ratio of 15.9:29.4. Slightly unfolded thoracic aorta. Pulmonary vasculature appeared to be slightly prominent but no obvious infiltrate. No pleural effusions. Normal bony structures. Bilateral lower extremity venous ultrasound performed yesterday shows no evidence of deep venous thrombosis. Chest CT angiogram performed yesterday was also reviewed independently, showed a normal size thoracic aorta and left ventricle with at least mildly dilated left atrium. Mildly dilated pulmonary trunk of 3.0 cm with at least mildly dilated right heart chambers. IVC was mildly dilated at 2.4 cm. No pericardial effusion. There was a fat pad anteriorly. No evidence of coronary artery calcification. No evidence of pulmonary embolism. No localized infiltrate, pleural effusion. EKG: First tracing yesterday at 6 p.m. showed underlying atrial fibrillation with rapid ventricular response averaging 128 bpm. RSR prime pattern in V1 and V2. Subtle lateral T-wave flattening that was slightly more prominent on followup study at 10 p.m. No pathological Q-waves. LABORATORY FINDINGS: Hemoglobin on admission 8.5 with microcytosis and hypochromia, MCV 77, MCHC 29. Leukocytosis of 16,000 with normal platelet count. Reticulocyte count was increased. D-dimer was elevated at 1337. Admission electrolytes showed a metabolic alkalosis but other electrolytes were normal. BNP level was elevated at 502, BUN 22, creatinine 1.0, random glucose yesterday 103. Iron studies showed iron deficiency with ferritin 12. Folic acid and vitamin B12 levels were normal. Troponin I level was negative. IMPRESSION/PLAN: 1. Paroxysmal atrial fibrillation: We are uncertain as to the exact onset of her rhythm disturbance but it may very well have been present for at least days. Believed to be related to hypertensive heart disease/pulmonary heart disease and possibly triggered by caffeine and alcohol versus bronchodilator therapies. Current ventricular response remains suboptimally controlled with diltiazem. In light of her heart failure I have started her on digoxin and her dosage of diltiazem will be reduced and administered only for heart rate greater than 90 beats per minute despite digoxin therapy alone. Currently on low molecular weight heparin subcutaneous every 12 hours in appropriate dosage. Frustratingly, likely due to hemorrhoidal bleeding she has a significant iron deficiency anemia. Iron replacement therapy has been administered. Her [id number] score is 2-[address] her at increased risk of systemic thromboembolic event if not treated with oral anticoagulation. Stool for occult blood has been requested. Started on iron replacement therapy by her primary physician. 2. Abnormal EKG: No clear symptom of myocardial ischemia. Repolarization abnormalities of course are nonspecific. Previous EKG showing Q-waves are known not to represent myocardial infarction as echocardiogram 2011, at the time of those abnormal EKGs, showed normal symmetrical wall motion and wall thickening. She certainly has multiple coronary risk factors, but currently troponin I level was also negative. Optimal management for prevention of myocardial ischemia would be controlling her heart rate. She is also receiving oral anticoagulant therapy. With her intimidating cholesterol values I have also started atorvastatin 80 mg. Followup EKG and troponin I level will be obtained in the morning. 3. Heart failure (unspecified/acute): Has radiographic borderline cardiomegaly with CT scans showing at least mildly dilated left atrium and right heart chambers. Chest x-ray also shows pulmonary venous congestion. Her IVC was dilated and neck veins appear to be elevated on examination with systemic edema, they go along with an elevated BNP level. I have placed her on a modest salt intake restriction and fluid intake restriction. Her oral Lasix has been withheld and she has been placed on Lasix 40 mg IV every 4 hours to generate a net negative fluid balance of a liter daily as long as she has signs of congestion. Her chemistry will be monitored closely. We have also placed a consult with the cardiac rehabilitation program for patient education. Undoubtedly her rapid ventricular response to atrial fibrillation has triggered a decompensation along with her iron deficiency anemia. Optimal heart rate control and correction of her anemia would be considered important. 4. Hypertensive heart disease (benign with heart failure): Believed to be the underlying reason for her left ventricular dysfunction decompensation triggered as mentioned above by new onset atrial fibrillation with rapid ventricular response as well as her anemia. Symptoms and signs of congestion as mentioned. Current blood pressure would be considered adequately controlled. We will continue to monitor her chemistry and renal function closely with you. Pending her echocardiographic findings and definition of her left ventricular function, we have added at least low-dose spironolactone to her Lasix therapy. 5. Cor pulmonale/right heart failure: Her CT scan would suggest pulmonary hypertension, perhaps out of keeping with the degree of her left heart disease, likely related to her pulmonary problems. It may be prudent prior to her discharge home to obtain a nocturnal oximetry study as a screen for obstructive sleep apnea. She remains on combination bronchodilator therapy, steroids and antibiotics for her pulmonary disease. 6. Hypercholesterolemia: Intimidating the elevated values dating back many years as mentioned above. Has been associated with significantly elevated LDL cholesterol but also an elevated HDL cholesterol. With her risk factors atorvastatin is justified as mentioned above. Even with her elevated HDL her calculated 10-year risk of heart attack or stroke is approximately 11%. I plan to follow her closely with you and appreciate the opportunity to participate in her care. Best regards.
[2016-11-19] VITALS: BP 123/70
[2016-11-19] MEDS: IPRATROPIUM 0.5MG/ALBUTEROL 2.5MG INH SOL UD 3ML (DUONEB)(J7620) NEB SCH ×4 (01:41→20:00)
[2016-11-19] MEDS: FUROSEMIDE 40 MG/4 ML VIAL (J1940) IV SCH ×5 (03:39→20:00)
[2016-11-19 04:00] VITALS: BP 137/81
[2016-11-19 05:16] LABS: BASO # 0.1 K/mm3 (0.0-0.2); BASO % 0.7 % (0.0-1.0); EOS % 0.1 % (0.0-3.0); LARGE UNSTAINED CELL # 0.1 K/mm3 (0.0-0.4); LARGE UNSTAINED CELL % 0.3 % (0.0-4.0); LYMPH # 0.8 K/mm3 (1.5-4.5); LYMPH % 3.7 % (24.0-44.0); MEAN CORPUSCULAR HEMOGLOBIN 21.8 pg (27.0-33.0); MEAN CORPUSCULAR HGB CONC 28.5 g/dl (32.0-36.5); MEAN CORPUSCULAR VOLUME 76.4 fl (80.0-96.0); MONO # 0.5 K/mm3 (0.0-0.8); MONO % 2.6 % (0.0-5.0); NEUTROPHILS % 92.7 % (36.0-66.0); PLATELET COUNT, AUTOMATED 225 k/mm3 (150-450); RED CELL DISTRIBUTION WIDTH 20.8 % (11.5-14.5); WHITE BLOOD COUNT 20.5 K/mm3 (4.0-10.0)
[2016-11-19 05:34] LABS: ANION GAP 15 MEQ/L (8-16); BLOOD UREA NITROGEN 28 MG/DL (7-18); CALCIUM LEVEL 8.9 MG/DL (8.8-10.2); CARBON DIOXIDE LEVEL 32 MEQ/L (21-32); CHLORIDE LEVEL 95 MEQ/L (98-107); CREATININE FOR GFR 1.15 MG/DL (0.55-1.02); GLOMERULAR FILTRATION RATE 50.9 (>45); GLUCOSE, FASTING 143 MG/DL (80-110); POTASSIUM SERUM 3.6 MEQ/L (3.5-5.1); SODIUM LEVEL 142 MEQ/L (136-145)
[2016-11-19] MEDS: CEPHALEXIN 500 MG CAP PO SCH ×3 (05:59→17:55)
[2016-11-19] MEDS: methylPREDNISolone INJ 40 MG/1 ML VIAL (J2920) IV SCH ×4 (06:00→17:56)
--- NOTE | 2016-11-19 07:49 | ECGEPIP ---
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
--- NOTE | 2016-11-19 07:52 | ECGEPIP ---
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
[2016-11-19 08:00] VITALS: BP 127/67
[2016-11-19] MEDS: BUDESONIDE 0.5 MG/2 ML INHALATION SUSPENSION INH SCH ×2 (08:25→19:41)
[2016-11-19] MEDS: FORMOTEROL FUMARATE 20 MCG/2 ML INHALATION SOLUTION (PERFOROMIST) INH SCH ×2 (08:25→19:41)
[2016-11-19] MEDS: ENOXAPARIN 100MG/1ML SYRINGE (J1650) SC SCH ×2 (08:57→20:46)
[2016-11-19] MEDS: DOCUSATE SODIUM 100 MG CAP PO SCH ×2 (08:58→20:47)
[2016-11-19] MEDS: PANTOPRAZOLE 40MG TAB (PROTONIX) PO SCH (08:58)
[2016-11-19] MEDS: DIGOXIN 0.25 MG TAB PO SCH (08:59)
[2016-11-19] MEDS: FERROUS SULFATE 325MG TAB PO SCH ×3 (08:59→20:47)
[2016-11-19] MEDS: POTASSIUM CHLORIDE 10 MEQ SR TABLET PO SCH ×3 (08:59→20:46)
[2016-11-19] MEDS: SPIRONOLACTONE 12.5MG PER 1/2 TABLET PO SCH (08:59)
[2016-11-19] MEDS: MOM 30ML SUSPENSION UDC PO PRN (11:20)
--- NOTE | 2016-11-19 11:50 | IPNPDOC ---
Text Note Date of Service The patient was seen on 11/19/16 at 11:31. NOTE Subjective: Patient is a 61 year old female with a PMHx of COPD / Asthma, ALEX, Diastolic heart failure, Diverticulosis, HTN, DLP who presented to the ER with complaints of shortness of breath and wheezing x 2 weeks. Patient was recently treated for COPD exacerbation as an outpatient with a course of prednisone PO. In the ER patient had a workup for DVT / PE which was negative, but was also found to have afib with RVR. She received Cardizem IV and then was transitioned to PO. Patient was seen and examined at the bedside. Clinically she is feeling well. But still notes her HR is uncontrolled. Denies chest pain or palpitations. Objective: Vitals (See below) General: Lying in bed, no acute distress, comfortable, AAOx3 HEENT: NC, AT CVS: Irregularly irregular, +S1S2 Lungs: Fair air entry b/l, -w/r/r Abdomen: Soft, ND, NT, +BSx4 Extremities: +PPx4 Assessment and plan: 1. Dyspnea - likely multifactorial 2/2 Acute COPD exacerbation, Acute decompensated CHF (possibly diastolic), New onset atrial fibrillation - Presented with SOB and wheezing - CTA chest negative for PE and pneumonia - ECHO complete - report pending - c/w Duoneb, Solumedrol and Pulmicort - Home lasix dose held; currently on Lasix 40 IV (to maintain negative fluid balance) 2. New onset atrial fibrillation - CHADSVASC of 2, possibly 3 - Rate / rhythm control with digoxin and diltiazem - Anticoagulation with lovenox therapeutic - Dr. Wong (Cardiology) following - appreciate his input 3. Recent history of cellulitis of lower extremities - No erythema / warmth or tenderness noted at this time - will compelte course of Keflex 4. Chronic diastolic heart failure - possibly 2/2 hypertensive cardiomyopathy - ECHO report pending - c/w Spironolactone, Lasix, 5. HTN - BP well controlled - Amlodipine on hold - c/w Diltiazem 6. Iron deficiency anemia - Hg in 05/2016 was 9-10 - Colonoscopy 10 years ago with diverticulosis - Hg stable at this time - Iron panel consistent with ALEX - FOBT pending - c/w ferrous sulfate 6. Leukocytosis - possibly 2/2 medications (corticosteroids), possibly 2/2 infection (cellulities of LE) - will check UA, C diff and CRP level - complete course of Keflex 7. DLP - c/w atorvastatin 8. GI prophylaxis - c/w protonix 9. DVT prophylaxis - full anticoagulation for atrial fibrillation VS,Fishbone, I+O VS, Fishbone, I+O Laboratory Tests 11/18/16 20:22 11/19/16 04:50 Calcium Level 8.9, Red Blood Count 3.73 L, Mean Corpuscular Volume 76.4 L, Mean Corpuscular Hemoglobin 21.8 L, Mean Corpuscular Hemoglobin Concent 28.5 L, Red Cell Distribution Width 20.8 H, Neutrophils (%) (Auto) 92.7 H, Lymphocytes (%) ( Auto) 3.7 L, Monocytes (%) (Auto) 2.6, Eosinophils (%) (Auto) 0.1, Basophils (% ) (Auto) 0.7, Neutrophils # (Auto) 19.0 H, Lymphocytes # (Auto) 0.8 L, Monocytes # (Auto) 0.5, Eosinophils # (Auto) 0.0, Basophils # (Auto) 0.1 Vital Signs Date Time Temp Pulse Resp B/P Pulse Ox O2 Delivery O2 Flow Rate FiO2 11/19/16 11:20 116 108/68 11/19/16 08:26 9 11/19/16 08:00 99.9 96 Room Air I&O- Last 24 Hours up to 6 AM 11/19/16 06:00 Intake Total 2040 ml Output Total 5550 ml Balance -3510 ml CONNOR CHRISTINA MD Nov 19, 2016 11:49
[2016-11-19 12:00] VITALS: BP 108/68
--- NOTE | 2016-11-19 13:53 | ECHO ---
DATE OF PROCEDURE: November 19, 2016 AGE: 61 GENDER: Female HEIGHT: 67 inches WEIGHT: 211 pounds BODY SURFACE AREA: 2.07 meters squared INPATIENT ICU: Room 3204 REFERRING PHYSICIAN: Dr. Wong INDICATION: Heart failure (unspecified). Atrial fibrillation. Abnormal EKG. MEASUREMENTS: 2-D measurements: RV - 4.0 cm LV - 3.9 cm Septum 1.2 cm Posterior wall 1.2 cm Aortic root 2.8 cm LA - 4.2 cm LVEF 75% DOPPLER MEASUREMENTS: AV - 2.5 meters per second LVOT 1.1 meters per second LVOT diameter 1.5 cm Mean AV gradient 13 mmHg MV - E 1.2 Early mitral deceleration time 204 milliseconds E prime 9.2 E/E prime ratio 13 PV - 0.75 meters per second Pulmonary artery acceleration time 95 milliseconds RVSP 45 mmHg IVC - 2.3 cm COMMENTS: Underlying atrial fibrillation with somewhat rapid ventricular response averaging 130 beats per minute. No intraventricular conduction disturbance. Technically challenging study in light of the patient's body habitus but diagnostically useful information was still obtained. At least mildly dilated left atrium but normal left ventricular size. Right ventricle was upper limits of normal in size. Right atrium was at least mildly dilated. LV wall thickness was upper limits of normal to borderline hypertrophied. On real-time imaging from the parasternal and apical projections wall motion was symmetrical and hyperkinetic. Normal-appearing mitral valvular apparatus leaflet excursion with no posterior systolic buckling. Three equal size aortic cusps with slightly thickened cusp edges but adequate cusp separation. Normal aortic root size. No apparent intracardiac mass or pericardial effusion. Small anterior fat pad. Color flow Doppler study taken from the parasternal and apical projections showed trace mitral [id number] tricuspid but no aortic insufficiency. Guided continuous wave Doppler of her aortic valve and pulsed Doppler study of her LV outflow tract taken from the apical long axis projection five chamber projection her peak systolic velocity and mean gradient were consistent with a mild degree of calcific aortic stenosis. Pulsed and continuous wave Doppler of her LV inflow tract taken from the apical four-chamber projection showed normal diastolic filling velocities against mitral stenosis. Her estimated mean left atrial pressure using pulsed and tissue Doppler of the mitral annulus was upper limits of normal. Pulsed and continuous wave Doppler of her pulmonary trunk showed a normal peak systolic velocity against RV outflow tract obstruction. Pulmonary artery acceleration time was abbreviated consistent with an elevated pulmonary vascular resistance. Guided continuous wave Doppler of her tricuspid valve allowed our estimation of her right ventricular systolic pressure (moderately increased). Her inferior vena cava was at least mildly dilated with reduced respiratory collapse consistent with an elevated central venous pressure. CONCLUSIONS: Borderline concentric left ventricle hypertrophy with hyperkinetic wall motion. Mildly dilated left atrium with current estimated mean left atrial pressure upper limits of normal. Right ventricle upper limits of normal in size with Doppler evidence of moderate pulmonary hypertension. Mildly dilated right atrium and inferior vena cava with reduced respiratory collapse consistent with elevated central venous pressure. Mild calcific aortic stenosis. Left atrial size would not be against a sustained sinus mechanism if cardioversion was attempted.
[2016-11-19 16:00] VITALS: BP 130/65
[2016-11-19 20:00] VITALS: BP 143/68
[2016-11-19] MEDS: ATORVASTATIN 20 MG TAB PO SCH (20:46)
--- NOTE | 2016-11-19 21:48 | IPN ---
CARDIOLOGY PROGRESS NOTE: 11/19/2016 SUBJECTIVE: Has been up in the room without shortness of breath, chest discomfort or dizziness. Has had an impressive response to parenteral diuretic therapy. Appears to be tolerating her medications without adverse effect. OBJECTIVE: Pleasant, obese, slightly barrel-chested late middle-aged lady laying comfortably with the head of bed elevated 45 degrees. No obvious pallor despite her anemia. No central cyanosis. Normal oral moisture. Heart rate 100 bpm and irregular. Blood pressure 146/78 sitting with legs dependent. Respiratory rate 18 per minute, weight today was down 1.2 kg with parenteral diuretic therapy. Has generated negative fluid balance so far today of 2365 mL. Trachea midline. Neck veins remain approximately 6 cm above the sternal angle. Increased anteroposterior chest diameter with improved air entry over both lung stanley without inspiratory rales at this time. Slight prolongation of expiration but no audible wheeze. Heart sounds remain unchanged. Obese, soft abdomen. Still has at least 1 mm pitting edema of two-third up both lower legs. Superficial erythema left lower leg appears to be slightly less with diuresis. [employer]: This shows ongoing atrial fibrillation with somewhat rapid ventricular response despite her combination digoxin and diltiazem negative chronotropic therapies. BLOOD WORK: Studies today show hemoglobin slightly down from yesterday at 8.1. White blood cell count was slightly elevated 20.5, platelet count remains normal. Electrolytes were in balance with potassium that has decreased to 3.6, BUN marginally higher than yesterday at 28, but creatinine actually slightly lower than yesterday at 1.15. Random glucose this morning 143. Troponin I level was negative. EKG: Study this morning reviewed independently shows ongoing atrial fibrillation with ventricular response averaging 98 beats per minute. Remains free of any ST/T-wave abnormalities even with her digoxin therapy. ECHOCARDIOGRAM: Study performed earlier today shows borderline concentric left ventricle hypertrophy with hyperkinetic wall motion, mildly dilated left atrium with mean left atrial pressure estimated upper limits of normal. Right heart chamber sizes were upper limits of normal to mildly dilated with Doppler evidence of moderate pulmonary hypertension. IVC size was increased with reduced respiratory collapse consistent with elevated central venous pressure. It also showed mild calcific aortic stenosis. IMPRESSION/PLAN: 1. Paroxysmal atrial fibrillation: Though she is unaware of palpitations at this time, her ventricular response remains somewhat rapid on her digoxin and diltiazem. She will remain on digoxin 0.25 mg daily. I have increased her diltiazem to 60 mg by mouth every 6 hours, hold for ventricular response less than 80 beats per minute. Subcutaneous low molecular weight heparin per primary service. Note is made of her slightly reduced hemoglobin from yesterday despite her negative fluid balance. No obvious source of bleeding at this time. Remains on oral replacement iron therapy. 2. Abnormal EKG: Remains free of any chest discomfort. No new repolarization abnormality. Followup Troponin I was negative. Our primary aim remains optimal heart rate control as mentioned above. Beta-rosanna therapy is somewhat contraindicated in light of her advanced lung disease. Is also on atorvastatin 40 mg daily (dose adjusted because of her diltiazem). Remains on low molecular weight heparin and systemic doses as mentioned. 3. Heart failure (diastolic/acute): Has had impressive response to diuretic therapy with fairly clear sounding lungs today. Still has obvious systemic congestion. Will continue on the same modest salt and fluid intake restriction with parenteral diuretic therapy. She has been started on low-dose spironolactone yesterday, but in light of her drop in potassium I have also ordered KCl at 20 mEq three times a day for the time being. We will continue to monitor her chemistry and fluid balance closely with you. 4. Hypertensive heart disease (benign with heart failure): Echocardiographic study confirmed our suspicions, she does have hypertensive heart disease with mild left ventricular hypertrophy with preserved systolic function, but impaired diastolic function. Current blood pressure remains somewhat high despite her diltiazem and parenteral diuretic therapies. I am convinced once she is euvolemic her blood pressure will come under control with diltiazem, spirolactone and loop diuretic therapy. 5. Cor pulmonale/right heart failure: Her echocardiogram again confirms there appears to be pulmonary hypertension out of keeping with left ventricular disease alone. She is receiving oral anticoagulant therapy which should protect her from pulmonary embolic events. I am hoping that we will be able to obtain a screening nocturnal oximetry once she is euvolemic, prior to her discharge home as a screen for obstructive sleep apnea. Continues on combination bronchodilator therapy, steroids and antibiotics. 6. Aortic valve disorder (nonrheumatic)/aortic stenosis: Interestingly, has no more than a mild degree of aortic stenosis, but I cannot detect a systolic ejection murmur at this time. Does not appear to have any symptoms or signs of endocarditis. 7. Hypercholesterolemia: Dietary measures/weight reduction have been emphasized. So far is tolerating atorvastatin 40 mg daily. She has made some progress, but remains congested with suboptimal heart rate control. We are hoping she will be rendered euvolemic with adequate control of her rhythm within the next 48 hours.
[2016-11-20] VITALS: BP 147/76
[2016-11-20] MEDS: CEPHALEXIN 500 MG CAP PO SCH ×5 (00:36→23:38)
[2016-11-20] MEDS: FUROSEMIDE 40 MG/4 ML VIAL (J1940) IV SCH ×7 (00:37→23:38)
[2016-11-20] MEDS: methylPREDNISolone INJ 40 MG/1 ML VIAL (J2920) IV SCH ×4 (00:37→23:38)
--- NOTE | 2016-11-20 00:54 | EDDOCDS ---
Nurse's Notes [facility] Name: Prachi Fields Age: 61 yrs Sex: Female : 1955 Arrival Date: 11/17/2016 Time: 15:01 Bed 18 Private MD: Lucas Barr Abdul Diagnosis: Atrial fibrillation and flutter-with rapid ventricular rate;Chronic obstructive pulmonary disease with (acute) exacerbation;Anemia, unspecified Presentation: 11/17 15:13 Presenting complaint: Patient states: that she has been wheezing for the past 2 weeks. ms18 Pt has seen her doctor, Dr. Barr, and was given some medications. Pt states that these aren't enough to help her with the wheezing. Adult Sepsis Screening: The patient does not have new or worsening altered mentation. Patient's respiratory rate is less than 22. Systolic blood pressure is greater than 100. Patient has a qSOFA score of 0- Negative Sepsis Screen. Suicide/Homicide risk assessment- the patient denies having any suicidal and/or homicidal ideations and does not present with any other emotional, behavioral or mental health complaints. Status: Patient is not a pharmacy services representative or dependent. Transition of care: patient was not received from another setting of care. 15:13 Method Of Arrival: Walkin/Carried/Asstd ms18 15:13 Acuity: BRANNON Level 3 ms18 Triage Assessment: 15:18 General: Appears in no apparent distress, comfortable, obese, Behavior is appropriate ms18 for age, cooperative, pleasant. Pain: Denies pain. HIV screening NA for this visit Offered previously. Neurological: Level of Consciousness is awake, alert, obeys commands, Oriented to person, place, time. Cardiovascular: Chest pain is denied. Respiratory: Onset: The symptoms/episode began/occurred 2 weeks ago, Airway is patent Respiratory effort is even, unlabored, Pt states that her lungs feel "tight" Reports shortness of breath on exertion. Derm: Skin is pink, warm & dry. Historical: - Allergies: Erythromycin (Upset stomach); - Home Meds: 1. Albuterol Inhl prn 2. amlodipine 10 mg daily hasnt filled per pharmacist since january 2016 3. furosemide 40 mg Oral tab 1 tab once daily 4. prednisone 10 mg oral tab 1 tab 3 times per day 5. Symbicort 160-4.5 mcg/actuation inhalation HFAA 2 times per day 6. cephalexin 500 mg Oral cap 1 cap every 6 hours - PMHx: COPD; Hypercholesterolemia; Hypertension; Asthma; - PSHx: Ankle Arthroscopy- Left; - Social history: Smoking status: Patient states former smoker of tobacco. No barriers to communication noted, The patient speaks fluent Yoruba. - Family history: Not pertinent. - : The pt / caregiver states he / she is not on anticoagulants. Home medication list is obtained from the patient. - Exposure Risk Screening:: None identified. Screenin:12 Screening information is obtained from the patient. Fall risk: No risks identified. jf3 Assistance ADL's: requires no assistance with activities of daily living. Abuse/DV Screen: The patient / caregiver reports he/she is: not in a situation that causes fear, pain or injury. Nutritional screening: No deficits noted. Advance Directives: There is no active DNR order. home support is adequate. Assessment: 19:26 Adult Sepsis Screening: The patient does not have new or worsening altered mentation. jf3 Patient's respiratory rate is less than 22. Systolic blood pressure is greater than 100. General: Appears in no apparent distress, comfortable, Behavior is cooperative. Pain: Denies pain. Neurological: Level of Consciousness is awake, alert, Oriented to person, place, time. Cardiovascular: Capillary refill < 3 seconds Heart tones S1 S2 present Chest pain is denied. Respiratory: Airway is patent Respiratory effort is even, unlabored, Respiratory pattern is regular, symmetrical, Breath sounds are clear bilaterally. Reports shortness of breath. Derm: Skin is pink, warm & dry. 20:30 General: Appears in no apparent distress, comfortable, Behavior is cooperative, Pt jf3 resting supine on stretcher watching TV. Respirations easy and unlabored. Pt states breathing is improved. Call light in reach. Will continue to monitor. 21:30 General: Appears in no apparent distress, comfortable, Behavior is cooperative, Pt jf3 resting supine on stretcher watching TV. respirations easy and unlabored. Will continue to monitor. 22:30 General: Appears in no apparent distress, comfortable, Behavior is cooperative. Pain: jf3 Denies pain. Neurological: Level of Consciousness is awake, alert, Oriented to person, place, time. Cardiovascular: Capillary refill < 3 seconds. Respiratory: Airway is patent Respiratory effort is even, unlabored, Respiratory pattern is regular, symmetrical. Derm: Skin is pink, warm & dry. 23:44 General: pt returned from CT ready for transfer to PCU. tm5 Vital Signs: 15:03 BP 201 / 96; Pulse 106; Resp 22 S; Temp 97.8(O); Pulse Ox 100% on R/A; Weight 89.81 kg dd6 (R); Height 5 ft. 7 in. (170.18 cm) (R); 17:40 BP 189 / 90; Pulse 131; Resp 24; Temp 98.0(TE); Pulse Ox 97% on R/A; Pain 10/10; ar3 17:47 BP 136 / 90 (auto/); jf3 17:50 Pulse 138 MON; Pulse Ox 97% ; jf3 18:02 BP 149 / 102 (auto/); jf3 18:03 Pulse 126 MON; Pulse Ox 97% ; jf3 18:17 BP 182 / 112 (auto/); jf3 18:18 Pulse 142 MON; Pulse Ox 98% ; jf3 18:32 BP 152 / 86 (auto/); jf3 18:32 Pulse 130 MON; Pulse Ox 95% ; jf3 18:46 Pulse 128 MON; Pulse Ox 96% ; jf3 18:47 BP 155 / 108 (auto/); jf3 19:02 BP 167 / 78 (auto/); jf3 19:02 Pulse 126 MON; Pulse Ox 94% ; jf3 19:17 BP 159 / 75 (auto/); jf3 19:17 Pulse 128 MON; Pulse Ox 94% ; jf3 19:32 BP 133 / 79 (auto/); jf3 19:32 Pulse 118 MON; Pulse Ox 95% ; jf3 19:47 BP 138 / 71 (auto/); jf3 19:47 Pulse 118 MON; Pulse Ox 95% ; jf3 20:02 BP 139 / 60 (auto/); jf3 20:02 Pulse 118 MON; Pulse Ox 95% ; jf3 20:17 BP 136 / 67 (auto/); jf3 20:18 Pulse 100 MON; Pulse Ox 96% ; jf3 20:32 BP 133 / 81 (auto/); jf3 20:32 Pulse 100 MON; Pulse Ox 95% ; jf3 20:47 BP 138 / 79 (auto/); jf3 20:47 Pulse 106 MON; Pulse Ox 96% ; jf3 21:02 BP 148 / 62 (auto/); jf3 21:02 Pulse 102 MON; Pulse Ox 96% ; jf3 21:17 BP 156 / 69 (auto/); jf3 21:17 Pulse 112 MON; Pulse Ox 96% ; jf3 21:17 Pulse 126; jf3 21:17 Pulse 101; jf3 21:32 BP 157 / 76 (auto/); jf3 21:32 Pulse 114 MON; Pulse Ox 96% ; jf3 21:47 BP 153 / 97 (auto/); jf3 21:47 Pulse 114 MON; Pulse Ox 96% ; jf3 22:02 BP 157 / 89 (auto/); jf3 22:02 Pulse 114 MON; Pulse Ox 96% ; jf3 22:17 BP 150 / 75 (auto/); jf3 22:17 Pulse 118 MON; Pulse Ox 95% ; jf3 22:32 BP 154 / 73 (auto/); jf3 22:32 Pulse 112 MON; Pulse Ox 97% ; jf3 22:46 Pulse 124 MON; Pulse Ox 95% ; jf3 22:47 BP 156 / 79 (auto/); jf3 23:01 Pulse 114 MON; Pulse Ox 95% ; jf3 23:02 BP 160 / 108 (auto/); jf3 23:32 BP 160 / 92 (auto/); tm5 23:32 Pulse 122 MON; tm5 15:03 Body Mass Index 31.01 (89.81 kg, 170.18 cm) dd6 Vitals: 15:03 Log In Time: November 17, 2016 at 15:01. dd6 ED Course: 15:02 Patient visited by Blayne Adams PCA. dd6 15:02 Lucas Barr is Private Physician. dd6 15:02 Patient moved to Waiting dd6 15:04 Patient moved to Pre RCE dd6 15:15 Triage Initiated ms18 17:44 Patient moved to 18 ms18 17:47 Julián Najera MD is Attending Physician. br1 17:50 The patient / caregiver is instructed regarding the plan of care and ED course. jf3 17:50 Inserted saline lock: 20 gauge in right antecubital area The patient tolerated the jf3 procedure well. No procedures done that require assistance. 17:54 Patient visited by Julián Najera MD. br1 18:07 Patient has correct armband on for positive identification. Placed in gown. Bed in low ct3 position. Call light in reach. Side rails up X2. radiation monitor on. Pulse ox on. NIBP on. 18:07 EKG done. (by ED staff). Reviewed by Julián Najera MD. ct3 18:08 Patient visited by Jayne Way PCA. ct3 18:28 [facility] Payment Agreement was scanned into [employer] and attached to record. zo 18:56 Jeannette Lundberg,RN is Primary Nurse. ko2 19:11 Patient visited by Leyda Noyola PCA. berna 19:12 Patient visited by Alin Carter PCA. kb5 19:13 -Influenza A&B Rapid Antigen - Nose Sent. jf3 19:13 D-Dimer Quant Sent. jf3 19:13 Troponin Sent. jf3 19:13 Cardiac Injury Profile Sent. jf3 19:13 CBC with Diff Sent. jf3 19:13 Basic Metabolic Profile Sent. jf3 19:13 B-Type Natiuretic Peptide Sent. jf3 19:28 Patient visited by Johnie Lester,[place]. jf3 19:37 RBC MORPH PROF NO CHARGE Sent. jf3 19:46 Chest, 2 View (pa\\E\\lat) Returned. EDMS 20:10 Patient visited by Alin Carter PCA. kb5 20:12 Patient visited by Johnie Lester,[place]. jf3 20:52 Patient moved to Ultrasound dmg 21:16 Patient visited by Johnie Lester,[place]. jf3 21:21 Patient moved to 18 dmg 21:58 Joie Mahan is Hospitalizing Provider. br1 22:00 Patient visited by Alisha Clinton PCA. cln 22:00 EKG done. (by ED staff). Reviewed by Julián Najera MD. cln 22:16 Ultrasound Bilateral LE R/O DVT Returned. EDMS 22:49 Patient visited by Johnie Lester,[place]. jf3 11/18 09:19 T-Sheet-- Draft Copy was scanned into [employer] and attached to record. gb 09:19 ECG/EKG was scanned into [employer] and attached to record. gb 09:20 Radiology Report was scanned into [employer] and attached to record. gb Administered Medications: 11/17 17:56 Drug: Albuterol-Ipratropium 1 neb [ipratropium-albuterol 0.5 mg-3 mg(2.5 mg base)/3 mL rs5 nebulization soln (1 neb)] Route: Nebulizer; 18:02 Drug: Albuterol-Ipratropium 1 neb [ipratropium-albuterol 0.5 mg-3 mg(2.5 mg base)/3 mL rs5 nebulization soln (1 neb)] Route: Nebulizer; 18:12 Drug: Albuterol-Ipratropium 1 neb [ipratropium-albuterol 0.5 mg-3 mg(2.5 mg base)/3 mL rs5 nebulization soln (1 neb)] Route: Nebulizer; 19:16 Drug: Solu-MEDROL 125 mg [Solu-Medrol 500 mg intravenous solution (125 mg)] Route: IVP; jf3 Site: right antecubital; 21:16 Follow up: Response: No Adverse Reaction jf3 19:24 Drug: Diltiazem 10 mg [diltiazem 5 mg/mL intravenous solution (2 mL)] Route: IVP; Site: jf3 right antecubital; 21:17 Follow up: Pulse 126 bpm; Response: No significant change. jf3 20:04 Drug: Diltiazem 20 mg [diltiazem 5 mg/mL intravenous solution (4 mL)] Route: IVP; Site: jf3 right antecubital; 21:17 Follow up: Pulse 101 bpm; Response: HR decreased jf3 RT: 18:12 Initial Med Neb Given as ordered Subsequent Med Neb Given as ordered Patient was rs5 reinforced on procedure Patient tolerated procedure well without adverse effect. Respiratory: Respiratory effort is even, unlabored, Respiratory pattern is regular symmetrical, Breath sounds are diminished Breath sounds with wheezes bilaterally. Reports shortness of breath on exertion cough that is non-productive. Order Results: Lab Order: B-Type Natiuretic Peptide; SPEC'M 11/17/16 19:10 Test: BRAIN NATRIURETIC PEPTIDE; Value: 502; Range: <100; Abnormal: Above high normal; Units: PG/ML; Status: F Lab Order: Basic Metabolic Profile; SPEC'M 11/17/16 19:10 Test: GLUCOSE, FASTING; Value: 103; Range: 80-110; Units: MG/DL; Status: F Test: BLOOD UREA NITROGEN; Value: 22; Range: 7-18; Abnormal: Above high normal; Units: MG/DL; Status: F Test: CREATININE FOR GFR; Value: 1.01; Range: 0.55-1.02; Units: MG/DL; Status: F Test: GLOMERULAR FILTRATION RATE; Value: 59.1; Range: >45; Status: F Test: SODIUM LEVEL; Value: 142; Range: 136-145; Units: MEQ/L; Status: F Test: POTASSIUM SERUM; Value: 3.9; Range: 3.5-5.1; Units: MEQ/L; Status: F Test: CHLORIDE LEVEL; Value: 100; Range: 98-107; Units: MEQ/L; Status: F Test: CARBON DIOXIDE LEVEL; Value: 34; Range: 21-32; Abnormal: Above high normal; Units: MEQ/L; Status: F Test: ANION GAP; Value: 8; Range: 8-16; Units: MEQ/L; Status: F Test: CALCIUM LEVEL; Value: 9.2; Range: 8.8-10.2; Units: MG/DL; Status: F Test Note: ; Units are mL/min/1.73 m2 Chronic Kidney Disease Staging per NKF: Stage I & II GFR >=60 Normal to Mildly Decreased Stage III GFR 30-59 Moderately Decreased Stage IV GFR 15-29 Severely Decreased Stage V GFR <15 Very Little GFR Left ESRD GFR <15 on LITIGATION PARTNER Lab Order: CBC with Diff; SPEC'M 11/17/16 19:10 Test: WHITE BLOOD COUNT; Value: 16.2; Range: 4.0-10.0; Abnormal: Above high normal; Units: K/mm3; Status: F Test: RED BLOOD COUNT; Value: 3.83; Range: 4.00-5.40; Abnormal: Below low normal; Units: M/mm3; Status: F Test: HEMOGLOBIN; Value: 8.5; Range: 12.0-16.0; Abnormal: Below low normal; Units: g/dl; Status: F Test: HEMATOCRIT; Value: 29.4; Range: 36.0-47.0; Abnormal: Below low normal; Units: %; Status: F Test: MEAN CORPUSCULAR VOLUME; Value: 76.8; Range: 80.0-96.0; Abnormal: Below low normal; Units: fl; Status: F Test: MEAN CORPUSCULAR HEMOGLOBIN; Value: 22.2; Range: 27.0-33.0; Abnormal: Below low normal; Units: pg; Status: F Test: MEAN CORPUSCULAR HGB CONC; Value: 28.8; Range: 32.0-36.5; Abnormal: Below low normal; Units: g/dl; Status: F Test: RED CELL DISTRIBUTION WIDTH; Value: 18.9; Range: 11.5-14.5; Abnormal: Above high normal; Units: %; Status: F Test: PLATELET COUNT, AUTOMATED; Value: 262; Range: 150-450; Units: k/mm3; Status: F Test: NEUTROPHILS %; Value: 83.6; Range: 36.0-66.0; Abnormal: Above high normal; Units: %; Status: F Test: LYMPH %; Value: 11.1; Range: 24.0-44.0; Abnormal: Below low normal; Units: %; Status: F Test: MONO %; Value: 3.8; Range: 0.0-5.0; Units: %; Status: F Test: EOS %; Value: 0.4; Range: 0.0-3.0; Units: %; Status: F Test: BASO %; Value: 0.0; Range: 0.0-1.0; Units: %; Status: F Test: LARGE UNSTAINED CELL %; Value: 1.1; Range: 0.0-4.0; Units: %; Status: F Test: NEUTROPHILS #; Value: 13.6; Range: 1.8-7.7; Abnormal: Above high normal; Units: K/mm3; Status: F Test: LYMPH #; Value: 1.8; Range: 1.5-4.5; Units: K/mm3; Status: F Test: MONO #; Value: 0.6; Range: 0.0-0.8; Units: K/mm3; Status: F Test: EOS #; Value: 0.1; Range: 0.0-0.50; Units: K/mm3; Status: F Test: BASO #; Value: 0.0; Range: 0.0-0.2; Units: K/mm3; Status: F Test: LARGE UNSTAINED CELL #; Value: 0.2; Range: 0.0-0.4; Units: K/mm3; Status: F Test: PLATELET ESTIMATE; Range: NORMAL; Status: I Lab Order: Cardiac Injury Profile; SPEC'M 11/17/16 19:10 Test: CPK CREATINE PHOSPHOKINASE; Value: 32; Range: 26-192; Units: U/L; Status: F Test: CK-MB VALUE MASS; Value: 1.9; Range: 0.0-3.6; Units: NG/ML; Status: F Test: MB/CK RELATIVE INDEX; Value: 5.93; Range: < OR =4; Abnormal: Above high normal; Status: F Test Note: ; DIAGNOSIS CRITERIA MMB ng/ml Relative Index (RI) NON-AMI < or = 5 N/A [place] > 5 < or = 4 AMI > 5 > 4 Lab Order: Troponin; SPEC'M 11/17/16 19:10 Test: TROPONIN I; Value: < 0.02; Range: < 0.10; Units: NG/ML; Status: F Test Note: ; Troponin I Reference Interval for [facility] LOCI: 99th Percentile= 0.00-0.045 ng/ml Risk Stratification: <= 0.10 ng/ml Decreased Risk for Adverse Clinical Events. 0.10-1.50 ng/ml Increased Risk for Adverse Clinical Events. Evaluation of additional criterion and/or repeat testing in 2-6 hours is suggested to rule out myocardial damage. >= 1.50 ng/ml Indicative of Myocardial Injury. Lab Order: D-Dimer Quant; SPEC'M 11/17/16 19:10 Test: D-DIMER QUANT; Value: 1337.7; Range: <500; Abnormal: Above high normal; Units: ng/ml; Status: F Lab Order: -Influenza A&B Rapid Antigen - Nose; SPEC'M 11/17/16 19:10 Test: INFLUENZA A RAPID SCR by ICA; Value: INFLUENZA A RESULTS NEGATIVE; Status: F Test: INFLUENZA A RAPID SCR by ICA; Value: Comments:; Status: F Test: INFLUENZA B RAPID SCR by ICA; Value: INFLUENZA B RESULTS NEGATIVE; Status: F Test Note: ; The Influenza test is a direct rapid immunoassay for the qualitative detection of Influenza viral antigen. Cell culture (Viral Culture) testing should be considered to confirm NEGATIVE results and to assist in detecting other viruses that can provide similar clinical symptoms. Please contact the lab within 24 hours ([phone]) if confirmatory testing is desired. Lab Order: RBC MORPH PROF NO CHARGE; [facility] 11/17/16 19:10 Test: HYPOCHROMASIA; Value: 1+; Status: F Test: ANISOCYTOSIS; Value: 1+; Status: F Test: MICROCYTOSIS; Value: 1+; Status: F Test: STOMATOCYTES; Value: 1+; Status: F Test: PLATELET ESTIMATE; Value: NORMAL; Range: NORMAL; Status: F Lab Order: VITAMIN B12 LEVEL; [facility] 11/17/16 22:33 Test: VITAMIN B12 LEVEL; Range: 247-911; Units: PG/ML; Status: I Lab Order: FOLATE; [facility] 11/17/16 22:33 Test: FOLATE; Range: >5.4; Units: NG/ML; Status: I Lab Order: FERRITIN; [facility] 11/17/16 22:33 Test: FERRITIN; Value: 12; Range: 8-252; Units: NG/ML; Status: F Lab Order: TOTAL IRON BINDING CAPACIT; [facility] 11/17/16 22:33 Test: IRON (FE); Value: 39; Range: 50-170; Abnormal: Below low normal; Units: UG/DL; Status: F Test: TOTAL IRON BINDING CAPACITY; Value: 582; Range: 250-450; Abnormal: Above high normal; Units: UG/DL; Status: F Test: PERCENT SATURATION; Value: 6.7; Range: 13.2-37.4; Abnormal: Below low normal; Units: %; Status: F Lab Order: SERUM PROTEIN ELECTROPHORESIS; [facility] 11/17/16 22:33 Test: ALBUMIN %; Range: 55.8-66.1; Units: %; Status: I Test: QDTEL-0-NLFANJQO %; Range: 2.9-4.9; Units: %; Status: I Test: XGYKW-5-YMJEDDCGN %; Range: 7.1-11.8; Units: %; Status: I Test: PAIM-7-AGISMJQQC %; Range: 4.7-7.2; Units: %; Status: I Test: QMBD-3-HQVMOPCHZ %; Range: 3.2-6.5; Units: %; Status: I Test: GAMMA GLOBULIN %; Range: 11.1-18.8; Units: %; Status: I Test: ALBUMIN; Range: 3.29-5.55; Units: GM/DL; Status: I Test: GAXSV-9-ZBXSXOLRH; Range: 0.17-0.41; Units: GM/DL; Status: I Test: TIWHZ-3-NDTHOIPOK; Range: 0.42-0.99; Units: GM/DL; Status: I Test: ENCO-9-QOXAVLYEK; Range: 0.28-0.60; Units: GM/DL; Status: I Test: KKEI-5-IJMLNASNS; Range: 0.19-0.55; Units: GM/DL; Status: I Test: GAMMA GLOBULINS; Range: 0.65-1.58; Units: GM/DL; Status: I Test: TOTAL PROTEIN; Value: 6.5; Range: 6.4-8.2; Units: GM/DL; Status: F Test: SPEP INTERPRETATION; Status: I Lab Order: RETICULOCYTE COUNT; SPEC'M 11/17/16 19:10 Test: RETICULOCYTE % [id number]; Value: 2.10; Range: 0.5-1.5; Abnormal: Above high normal; Units: %; Status: F Test: RETICULOCYTE ABSOLUTE [id number]; Value: 83; Range: 17-77; Abnormal: Above high normal; Units: x10(9)/L; Status: F Test: RETIC HEMOGLOBIN CONTENT CHr; Value: 25.7; Range: 24-36; Units: PG; Status: F Radiology Order: Chest, 2 View (pa\\E\\lat) Test: Chest, 2 View (pa\\E\\lat) REASON FOR EXAMINATION: Shortness of Breath; Chest x-ray: Two views:; ; History: Shortness of breath.; ; Comparison chest x-ray: 10/07/2016.; ; Findings: EKG monitoring electrodes overlie the chest. The lungs are; symmetrically aerated and remain free of infiltrate. Pleural angles are sharp.; Heart is at the upper range of normal in size unchanged. The aorta is tortuous.; No pleural effusion or pulmonary edema seen.; ; Impression:; ; Borderline size heart. Otherwise no acute disease.; ; ; Signed by; Surinder Tracy MD 11/17/2016 07:48 P; Radiology Order: Ultrasound Bilateral LE R/O DVT Test: Ultrasound Bilateral LE R/O DVT REASON FOR EXAMINATION: Deformity/Swelling; ; Clinical history: Pain, swelling.; Findings: The common femoral, superficial femoral, popliteal, and other deep venous structures compre; ss normally and demonstrate normal color Doppler flow. Normal venous waveforms with augmentation are; seen.; Impression:; No evidence of deep vein thrombosis in either femoral popliteal venous system.; ; Outcome: 21:58 Decision to Hospitalize by Provider. br1 23:16 Discharge Assessment: patient administered narcotics - no. The following High Risk [facility] Discharge criteria are identified: None. Admitted to ICU accompanied by nurse, accompanied by tech, via stretcher, on monitor, with chart. Condition: stable. CT Study completed. Ultrasound Study completed. Admission hand-off: Report called to Winter Farias RN. Property :Personal belongings accompany Pt. 23:53 Patient left the ED. joe Signatures: Dispatcher [employer] EDMS Emily Reddy RN RN jan Gunn, Deanne dmg Barnhardt, Gloria, Luke Reg Trino Ocampo Kristopher, MOTORCYCLE DELIVERY DRIVER MOTORCYCLE DELIVERY DRIVER kb5 Julián Najera MD MD br1 Blayne Adams, MOTORCYCLE DELIVERY DRIVER MOTORCYCLE DELIVERY DRIVER dd6 Monica Rodriguez, MOTORCYCLE DELIVERY DRIVER MOTORCYCLE DELIVERY DRIVER ar3 Leyda Noyola, MOTORCYCLE DELIVERY DRIVER MOTORCYCLE DELIVERY DRIVER berna Jayne Way, MOTORCYCLE DELIVERY DRIVER MOTORCYCLE DELIVERY DRIVER ct3 Ricardo Soto,RT RT rs5 Jeannette LundbergRN RN teena2 Sara Case,RN RN ms18 Johnie Lester,RN RN jf3 Alisha Clinton, MOTORCYCLE DELIVERY DRIVER MOTORCYCLE DELIVERY DRIVER cln Peyton Duke,RN RN tm5 Chart Complete MTDD
--- NOTE | 2016-11-20 00:54 | EDDOCDS ---
Physician Documentation [facility] Name: Prachi Fields Age: 61 yrs Sex: Female : 1955 Arrival Date: 11/17/2016 Time: 15:01 Bed 18 Private MD: Lucas Barr Abdul Disposition: 11/17/16 21:58 Hospitalization ordered by Joie Mahan for Inpatient Admission. Preliminary diagnosis are Atrial fibrillation and flutter - with rapid ventricular rate, Chronic obstructive pulmonary disease with (acute) exacerbation, Anemia, unspecified. - Bed requested for M ICU. - Status is Inpatient Admission. joe - Condition is Stable. - Problem is new. - Symptoms are unchanged. Historical: - Allergies: Erythromycin (Upset stomach); - Home Meds: 1. Albuterol Inhl prn 2. amlodipine 10 mg daily hasnt filled per pharmacist since january 2016 3. furosemide 40 mg Oral tab 1 tab once daily 4. prednisone 10 mg oral tab 1 tab 3 times per day 5. Symbicort 160-4.5 mcg/actuation inhalation HFAA 2 times per day 6. cephalexin 500 mg Oral cap 1 cap every 6 hours - PMHx: COPD; Hypercholesterolemia; Hypertension; Asthma; - PSHx: Ankle Arthroscopy- Left; - Social history: Smoking status: Patient states former smoker of tobacco. No barriers to communication noted, The patient speaks fluent Romanian. - Family history: Not pertinent. - : The pt / caregiver states he / she is not on anticoagulants. Home medication list is obtained from the patient. - Exposure Risk Screening:: None identified. Vital Signs: 11/17 15:03 BP 201 / 96; Pulse 106; Resp 22 S; Temp 97.8(O); Pulse Ox 100% on R/A; Weight 89.81 kg dd6 / 198 lbs (R); Height 5 ft. 7 in. (170.18 cm) (R); 17:40 BP 189 / 90; Pulse 131; Resp 24; Temp 98.0(TE); Pulse Ox 97% on R/A; Pain 10/10; ar3 17:47 BP 136 / 90 (auto/); jf3 17:50 Pulse 138 MON; Pulse Ox 97% ; jf3 18:02 BP 149 / 102 (auto/); jf3 18:03 Pulse 126 MON; Pulse Ox 97% ; jf3 18:17 BP 182 / 112 (auto/); jf3 18:18 Pulse 142 MON; Pulse Ox 98% ; jf3 18:32 BP 152 / 86 (auto/); jf3 18:32 Pulse 130 MON; Pulse Ox 95% ; jf3 18:46 Pulse 128 MON; Pulse Ox 96% ; jf3 18:47 BP 155 / 108 (auto/); jf3 19:02 BP 167 / 78 (auto/); jf3 19:02 Pulse 126 MON; Pulse Ox 94% ; jf3 19:17 BP 159 / 75 (auto/); jf3 19:17 Pulse 128 MON; Pulse Ox 94% ; jf3 19:32 BP 133 / 79 (auto/); jf3 19:32 Pulse 118 MON; Pulse Ox 95% ; jf3 19:47 BP 138 / 71 (auto/); jf3 19:47 Pulse 118 MON; Pulse Ox 95% ; jf3 20:02 BP 139 / 60 (auto/); jf3 20:02 Pulse 118 MON; Pulse Ox 95% ; jf3 20:17 BP 136 / 67 (auto/); jf3 20:18 Pulse 100 MON; Pulse Ox 96% ; jf3 20:32 BP 133 / 81 (auto/); jf3 20:32 Pulse 100 MON; Pulse Ox 95% ; jf3 20:47 BP 138 / 79 (auto/); jf3 20:47 Pulse 106 MON; Pulse Ox 96% ; jf3 21:02 BP 148 / 62 (auto/); jf3 21:02 Pulse 102 MON; Pulse Ox 96% ; jf3 21:17 BP 156 / 69 (auto/); jf3 21:17 Pulse 112 MON; Pulse Ox 96% ; jf3 21:17 Pulse 126; jf3 21:17 Pulse 101; jf3 21:32 BP 157 / 76 (auto/); jf3 21:32 Pulse 114 MON; Pulse Ox 96% ; jf3 21:47 BP 153 / 97 (auto/); jf3 21:47 Pulse 114 MON; Pulse Ox 96% ; jf3 22:02 BP 157 / 89 (auto/); jf3 22:02 Pulse 114 MON; Pulse Ox 96% ; jf3 22:17 BP 150 / 75 (auto/); jf3 22:17 Pulse 118 MON; Pulse Ox 95% ; jf3 22:32 BP 154 / 73 (auto/); jf3 22:32 Pulse 112 MON; Pulse Ox 97% ; jf3 22:46 Pulse 124 MON; Pulse Ox 95% ; jf3 22:47 BP 156 / 79 (auto/); jf3 23:01 Pulse 114 MON; Pulse Ox 95% ; jf3 23:02 BP 160 / 108 (auto/); jf3 23:32 BP 160 / 92 (auto/); tm5 23:32 Pulse 122 MON; tm5 15:03 Body Mass Index 31.01 (89.81 kg, 170.18 cm) dd6 MDM: 17:54 Paper Tube Grader/Pulse Ox/q 30 min VS ordered. br1 17:54 IV Saline Lock ordered. br1 17:54 Rhythm Strip to chart ordered. br1 17:54 Undress patient appropriately for examination ordered. br1 17:55 Albuterol-Ipratropium 1 neb Nebulizer every 20 minutes x3 ordered. br1 17:55 Solu-MEDROL 125 mg IVP once ordered. br1 17:55 Call Respiratory ordered. br1 17:55 B-Type Natiuretic Peptide Ordered. EDMS 17:55 Basic Metabolic Profile Ordered. EDMS 17:55 CBC with Diff Ordered. EDMS 17:55 Cardiac Injury Profile Ordered. EDMS 17:55 Troponin Ordered. EDMS 17:55 D-Dimer Quant Ordered. EDMS 17:55 Chest, 2 View (pa\E\lat) Ordered. EDMS 17:55 ECG WITH READING ER PHYS+CARDIAG ordered. EDMS 17:56 -Influenza A&B Rapid Antigen - Nose Ordered. EDMS 18:04 Call Respiratory complete. deg 18:11 Diltiazem 10 mg IVP once; administer over 2 minutes ordered. br1 18:28 REPLACED BY [facility] Payment Agreement was scanned into Tessella and attached to record. zo 18:28 Financial registration complete. zo 19:29 RBC MORPH PROF NO CHARGE Ordered. EDMS 19:31 Diltiazem 20 mg IVP once; administer over 2 minutes ordered. br1 19:34 BED REQUEST+ADM ordered. EDMS 20:35 B-Type Natiuretic Peptide Reviewed. br1 20:35 CBC with Diff Reviewed. br1 20:35 D-Dimer Quant Reviewed. br1 20:35 -Influenza A&B Rapid Antigen - Nose Reviewed. br1 20:35 RBC MORPH PROF NO CHARGE Reviewed. br1 20:35 Chest, 2 View (pa\E\lat) Reviewed. br1 20:37 Ultrasound Bilateral LE R/O DVT Ordered. EDMS 21:03 Basic Metabolic Profile Reviewed. br1 21:03 Cardiac Injury Profile Reviewed. br1 21:03 Troponin Reviewed. br1 21:06 CT Chest Angio R/O PE Ordered. EDMS 21:53 Repeat EKG (put time details section) ordered. br1 21:55 Repeat EKG (put time details section) complete. ml3 21:56 ECG WITH READING ER PHYS ordered. EDMS 22:20 VITAMIN B12 LEVEL Ordered. EDMS 22:21 FOLATE Ordered. EDMS 22:21 IRON (FE) Ordered. EDMS 22:21 FERRITIN Ordered. EDMS 22:21 TOTAL IRON BINDING CAPACIT Ordered. EDMS 22:21 SERUM PROTEIN ELECTROPHORESIS Ordered. EDMS 22:21 CBC WITH DIFFERENTIAL Ordered. EDMS 22:21 BASIC METABOLIC PROFILE Ordered. EDMS 22:25 Admission / Observation Status ordered. EDMS 22:25 REGULAR DIET ordered. EDMS 22:32 RETICULOCYTE COUNT Ordered. EDMS 11/18 09:19 T-Sheet-- Draft Copy was scanned into Tessella and attached to record. gb 09:19 ECG/EKG was scanned into Tessella and attached to record. gb 09:20 Radiology Report was scanned into Tessella and attached to record. gb Administered Medications: 11/17 17:56 Drug: Albuterol-Ipratropium 1 neb [ipratropium-albuterol 0.5 mg-3 mg(2.5 mg base)/3 mL rs5 nebulization soln (1 neb)] Route: Nebulizer; 18:02 Drug: Albuterol-Ipratropium 1 neb [ipratropium-albuterol 0.5 mg-3 mg(2.5 mg base)/3 mL rs5 nebulization soln (1 neb)] Route: Nebulizer; 18:12 Drug: Albuterol-Ipratropium 1 neb [ipratropium-albuterol 0.5 mg-3 mg(2.5 mg base)/3 mL rs5 nebulization soln (1 neb)] Route: Nebulizer; 19:16 Drug: Solu-MEDROL 125 mg [Solu-Medrol 500 mg intravenous solution (125 mg)] Route: IVP; jf3 Site: right antecubital; 21:16 Follow up: Response: No Adverse Reaction jf3 19:24 Drug: Diltiazem 10 mg [diltiazem 5 mg/mL intravenous solution (2 mL)] Route: IVP; Site: jf3 right antecubital; 21:17 Follow up: Pulse 126 bpm; Response: No significant change. jf3 20:04 Drug: Diltiazem 20 mg [diltiazem 5 mg/mL intravenous solution (4 mL)] Route: IVP; Site: jf3 right antecubital; 21:17 Follow up: Pulse 101 bpm; Response: HR decreased jf3 Signatures: Dispatcher MedHost EDMS Lola Moses, Diving Supervisor Unit deg Barry, Emily Singh, RN RN Niki Hennessy, Reg Reg gb Cole, CieloKelsey, Diving Supervisor Unit ml3 Trino Barillas Brian, MD MD br1 Sara Case RN RN ms18 Johnie Lester RN RN jf3 Phoebe Guardado RN RN lmg Ricardo Soto RT rs5 The chart was reviewed and I authenticate all verbal orders and agree with the evaluation and treatment provided.Corrections: (The following items were deleted from the chart) 22:32 22:21 RETICULOCYTE COUNT ordered. EDMS EDMS Attachments: 18:28 REPLACED BY [facility] Payment Agreement zo 11/18 09:19 T-Sheet-- Draft Copy gb 09:19 ECG/EKG Chart Complete MTDD
--- NOTE | 2016-11-20 00:54 | EDDOCDS ---
Physician Documentation [facility] Name: Prachi Fields Age: 61 yrs Sex: Female : 1955 Arrival Date: 11/17/2016 Time: 15:01 Bed 18 Private MD: Lucas Barr Abdul Disposition: 11/17/16 21:58 Hospitalization ordered by Joie Mahan for Inpatient Admission. Preliminary diagnosis are Atrial fibrillation and flutter - with rapid ventricular rate, Chronic obstructive pulmonary disease with (acute) exacerbation, Anemia, unspecified. - Bed requested for M ICU. - Status is Inpatient Admission. joe - Condition is Stable. - Problem is new. - Symptoms are unchanged. Historical: - Allergies: Erythromycin (Upset stomach); - Home Meds: 1. Albuterol Inhl prn 2. amlodipine 10 mg daily hasnt filled per pharmacist since january 2016 3. furosemide 40 mg Oral tab 1 tab once daily 4. prednisone 10 mg oral tab 1 tab 3 times per day 5. Symbicort 160-4.5 mcg/actuation inhalation HFAA 2 times per day 6. cephalexin 500 mg Oral cap 1 cap every 6 hours - PMHx: COPD; Hypercholesterolemia; Hypertension; Asthma; - PSHx: Ankle Arthroscopy- Left; - Social history: Smoking status: Patient states former smoker of tobacco. No barriers to communication noted, The patient speaks fluent Uzbek. - Family history: Not pertinent. - : The pt / caregiver states he / she is not on anticoagulants. Home medication list is obtained from the patient. - Exposure Risk Screening:: None identified. Vital Signs: 11/17 15:03 BP 201 / 96; Pulse 106; Resp 22 S; Temp 97.8(O); Pulse Ox 100% on R/A; Weight 89.81 kg dd6 / 198 lbs (R); Height 5 ft. 7 in. (170.18 cm) (R); 17:40 BP 189 / 90; Pulse 131; Resp 24; Temp 98.0(TE); Pulse Ox 97% on R/A; Pain 10/10; ar3 17:47 BP 136 / 90 (auto/); jf3 17:50 Pulse 138 MON; Pulse Ox 97% ; jf3 18:02 BP 149 / 102 (auto/); jf3 18:03 Pulse 126 MON; Pulse Ox 97% ; jf3 18:17 BP 182 / 112 (auto/); jf3 18:18 Pulse 142 MON; Pulse Ox 98% ; jf3 18:32 BP 152 / 86 (auto/); jf3 18:32 Pulse 130 MON; Pulse Ox 95% ; jf3 18:46 Pulse 128 MON; Pulse Ox 96% ; jf3 18:47 BP 155 / 108 (auto/); jf3 19:02 BP 167 / 78 (auto/); jf3 19:02 Pulse 126 MON; Pulse Ox 94% ; jf3 19:17 BP 159 / 75 (auto/); jf3 19:17 Pulse 128 MON; Pulse Ox 94% ; jf3 19:32 BP 133 / 79 (auto/); jf3 19:32 Pulse 118 MON; Pulse Ox 95% ; jf3 19:47 BP 138 / 71 (auto/); jf3 19:47 Pulse 118 MON; Pulse Ox 95% ; jf3 20:02 BP 139 / 60 (auto/); jf3 20:02 Pulse 118 MON; Pulse Ox 95% ; jf3 20:17 BP 136 / 67 (auto/); jf3 20:18 Pulse 100 MON; Pulse Ox 96% ; jf3 20:32 BP 133 / 81 (auto/); jf3 20:32 Pulse 100 MON; Pulse Ox 95% ; jf3 20:47 BP 138 / 79 (auto/); jf3 20:47 Pulse 106 MON; Pulse Ox 96% ; jf3 21:02 BP 148 / 62 (auto/); jf3 21:02 Pulse 102 MON; Pulse Ox 96% ; jf3 21:17 BP 156 / 69 (auto/); jf3 21:17 Pulse 112 MON; Pulse Ox 96% ; jf3 21:17 Pulse 126; jf3 21:17 Pulse 101; jf3 21:32 BP 157 / 76 (auto/); jf3 21:32 Pulse 114 MON; Pulse Ox 96% ; jf3 21:47 BP 153 / 97 (auto/); jf3 21:47 Pulse 114 MON; Pulse Ox 96% ; jf3 22:02 BP 157 / 89 (auto/); jf3 22:02 Pulse 114 MON; Pulse Ox 96% ; jf3 22:17 BP 150 / 75 (auto/); jf3 22:17 Pulse 118 MON; Pulse Ox 95% ; jf3 22:32 BP 154 / 73 (auto/); jf3 22:32 Pulse 112 MON; Pulse Ox 97% ; jf3 22:46 Pulse 124 MON; Pulse Ox 95% ; jf3 22:47 BP 156 / 79 (auto/); jf3 23:01 Pulse 114 MON; Pulse Ox 95% ; jf3 23:02 BP 160 / 108 (auto/); jf3 23:32 BP 160 / 92 (auto/); tm5 23:32 Pulse 122 MON; tm5 15:03 Body Mass Index 31.01 (89.81 kg, 170.18 cm) dd6 MDM: 17:54 Cash Processing Specialist/Pulse Ox/q 30 min VS ordered. br1 17:54 IV Saline Lock ordered. br1 17:54 Rhythm Strip to chart ordered. br1 17:54 Undress patient appropriately for examination ordered. br1 17:55 Albuterol-Ipratropium 1 neb Nebulizer every 20 minutes x3 ordered. br1 17:55 Solu-MEDROL 125 mg IVP once ordered. br1 17:55 Call Respiratory ordered. br1 17:55 B-Type Natiuretic Peptide Ordered. EDMS 17:55 Basic Metabolic Profile Ordered. EDMS 17:55 CBC with Diff Ordered. EDMS 17:55 Cardiac Injury Profile Ordered. EDMS 17:55 Troponin Ordered. EDMS 17:55 D-Dimer Quant Ordered. EDMS 17:55 Chest, 2 View (pa\E\lat) Ordered. EDMS 17:55 ECG WITH READING ER PHYS+CARDIAG ordered. EDMS 17:56 -Influenza A&B Rapid Antigen - Nose Ordered. EDMS 18:04 Call Respiratory complete. deg 18:11 Diltiazem 10 mg IVP once; administer over 2 minutes ordered. br1 18:28 [facility] Payment Agreement was scanned into Grows Up and attached to record. zo 18:28 Financial registration complete. zo 19:29 RBC MORPH PROF NO CHARGE Ordered. EDMS 19:31 Diltiazem 20 mg IVP once; administer over 2 minutes ordered. br1 19:34 BED REQUEST+ADM ordered. EDMS 20:35 B-Type Natiuretic Peptide Reviewed. br1 20:35 CBC with Diff Reviewed. br1 20:35 D-Dimer Quant Reviewed. br1 20:35 -Influenza A&B Rapid Antigen - Nose Reviewed. br1 20:35 RBC MORPH PROF NO CHARGE Reviewed. br1 20:35 Chest, 2 View (pa\E\lat) Reviewed. br1 20:37 Ultrasound Bilateral LE R/O DVT Ordered. EDMS 21:03 Basic Metabolic Profile Reviewed. br1 21:03 Cardiac Injury Profile Reviewed. br1 21:03 Troponin Reviewed. br1 21:06 CT Chest Angio R/O PE Ordered. EDMS 21:53 Repeat EKG (put time details section) ordered. br1 21:55 Repeat EKG (put time details section) complete. ml3 21:56 ECG WITH READING ER PHYS ordered. EDMS 22:20 VITAMIN B12 LEVEL Ordered. EDMS 22:21 FOLATE Ordered. EDMS 22:21 IRON (FE) Ordered. EDMS 22:21 FERRITIN Ordered. EDMS 22:21 TOTAL IRON BINDING CAPACIT Ordered. EDMS 22:21 SERUM PROTEIN ELECTROPHORESIS Ordered. EDMS 22:21 CBC WITH DIFFERENTIAL Ordered. EDMS 22:21 BASIC METABOLIC PROFILE Ordered. EDMS 22:25 Admission / Observation Status ordered. EDMS 22:25 REGULAR DIET ordered. EDMS 22:32 RETICULOCYTE COUNT Ordered. EDMS 11/18 09:19 T-Sheet-- Draft Copy was scanned into Grows Up and attached to record. gb 09:19 ECG/EKG was scanned into Grows Up and attached to record. gb 09:20 Radiology Report was scanned into Grows Up and attached to record. gb Administered Medications: 11/17 17:56 Drug: Albuterol-Ipratropium 1 neb [ipratropium-albuterol 0.5 mg-3 mg(2.5 mg base)/3 mL rs5 nebulization soln (1 neb)] Route: Nebulizer; 18:02 Drug: Albuterol-Ipratropium 1 neb [ipratropium-albuterol 0.5 mg-3 mg(2.5 mg base)/3 mL rs5 nebulization soln (1 neb)] Route: Nebulizer; 18:12 Drug: Albuterol-Ipratropium 1 neb [ipratropium-albuterol 0.5 mg-3 mg(2.5 mg base)/3 mL rs5 nebulization soln (1 neb)] Route: Nebulizer; 19:16 Drug: Solu-MEDROL 125 mg [Solu-Medrol 500 mg intravenous solution (125 mg)] Route: IVP; jf3 Site: right antecubital; 21:16 Follow up: Response: No Adverse Reaction jf3 19:24 Drug: Diltiazem 10 mg [diltiazem 5 mg/mL intravenous solution (2 mL)] Route: IVP; Site: jf3 right antecubital; 21:17 Follow up: Pulse 126 bpm; Response: No significant change. jf3 20:04 Drug: Diltiazem 20 mg [diltiazem 5 mg/mL intravenous solution (4 mL)] Route: IVP; Site: jf3 right antecubital; 21:17 Follow up: Pulse 101 bpm; Response: HR decreased jf3 Signatures: Dispatcher MedHost EDMS Lola Moses, Switchboard Operator Supervisor Unit deg Barry, Emily Singh, RN RN Niki Hennessy, Reg Reg gb Cole, CieloKelsey, Switchboard Operator Supervisor Unit ml3 Trino Barillas Brian, MD MD br1 Sara Case RN RN ms18 Johnie Lester RN RN jf3 Phoebe Guardado RN RN lmg Ricardo Soto RT rs5 The chart was reviewed and I authenticate all verbal orders and agree with the evaluation and treatment provided.Corrections: (The following items were deleted from the chart) 22:32 22:21 RETICULOCYTE COUNT ordered. EDMS EDMS Attachments: 18:28 [facility] Payment Agreement zo 11/18 09:19 T-Sheet-- Draft Copy gb 09:19 ECG/EKG Chart Complete MTDD
[2016-11-20] MEDS: IPRATROPIUM 0.5MG/ALBUTEROL 2.5MG INH SOL UD 3ML (DUONEB)(J7620) NEB SCH ×4 (01:39→20:00)
[2016-11-20 04:00] VITALS: BP 116/72
[2016-11-20 05:26] LABS: BASO % 0.1 % (0.0-1.0); EOS % 0.2 % (0.0-3.0); LARGE UNSTAINED CELL # 0.1 K/mm3 (0.0-0.4); LARGE UNSTAINED CELL % 0.5 % (0.0-4.0); LYMPH # 0.7 K/mm3 (1.5-4.5); LYMPH % 3.4 % (24.0-44.0); MEAN CORPUSCULAR HEMOGLOBIN 22.4 pg (27.0-33.0); MEAN CORPUSCULAR HGB CONC 29.1 g/dl (32.0-36.5); MEAN CORPUSCULAR VOLUME 76.9 fl (80.0-96.0); MONO # 0.6 K/mm3 (0.0-0.8); MONO % 3.2 % (0.0-5.0); NEUTROPHILS % 92.6 % (36.0-66.0); PLATELET COUNT, AUTOMATED 210 k/mm3 (150-450); RED CELL DISTRIBUTION WIDTH 19.6 % (11.5-14.5); WHITE BLOOD COUNT 19.5 K/mm3 (4.0-10.0)
[2016-11-20 05:35] LABS: ANION GAP 8 MEQ/L (8-16); BLOOD UREA NITROGEN 31 MG/DL (7-18); CALCIUM LEVEL 9.1 MG/DL (8.8-10.2); CARBON DIOXIDE LEVEL 33 MEQ/L (21-32); CHLORIDE LEVEL 97 MEQ/L (98-107); CREATININE FOR GFR 1.07 MG/DL (0.55-1.02); GLOMERULAR FILTRATION RATE 55.3 (>45); GLUCOSE, FASTING 139 MG/DL (80-110); SODIUM LEVEL 138 MEQ/L (136-145)
[2016-11-20] MEDS: FORMOTEROL FUMARATE 20 MCG/2 ML INHALATION SOLUTION (PERFOROMIST) INH SCH ×2 (07:48→19:47)
[2016-11-20] MEDS: BUDESONIDE 0.5 MG/2 ML INHALATION SUSPENSION INH SCH ×2 (07:48→19:47)
[2016-11-20 08:00] VITALS: BP 123/72
--- NOTE | 2016-11-20 08:26 | ECGEPIP ---
Stationary ECG Study [facility] Test Date: 2016-11-19 Pat Name: PALAK MANJARREZ Department: Room: [place] [address] Gender: F Education Professional: JAYLAN : 1955 Requested By: David Wong Order Number: [id number] Reading MD: Diomedes Schmitz Measurements Intervals [place] Rate: 98 P: WI: 0 QRS: 58 QRSD: 90 T: 48 QT: 346 QTc: 442 Interpretive Statements Atrial fibrillation with controlled ventricular response Incomplete right bundle branch block Nonspecific ST-T wave abnormalities No significant change when compared to prior tracing of 11/17/2016 Electronically Signed On 11-20-2016 8:25:39 EST by Diomedes Schmitz
[2016-11-20] MEDS: ENOXAPARIN 100MG/1ML SYRINGE (J1650) SC SCH ×2 (08:37→20:43)
[2016-11-20] MEDS: POTASSIUM CHLORIDE 10 MEQ SR TABLET PO SCH ×3 (08:38→20:42)
[2016-11-20] MEDS: DIGOXIN 0.25 MG TAB PO SCH (08:38)
[2016-11-20] MEDS: PANTOPRAZOLE 40MG TAB (PROTONIX) PO SCH (08:38)
[2016-11-20] MEDS: FERROUS SULFATE 325MG TAB PO SCH ×3 (08:38→20:42)
[2016-11-20] MEDS: DOCUSATE SODIUM 100 MG CAP PO SCH ×2 (08:38→20:42)
[2016-11-20] MEDS: SPIRONOLACTONE 12.5MG PER 1/2 TABLET PO SCH (08:38)
--- NOTE | 2016-11-20 11:44 | IPNPDOC ---
Text Note Date of Service The patient was seen on 11/20/16 at 11:39. NOTE Subjective: Patient is a 61 year old female with a PMHx of COPD / Asthma, ALEX, Diastolic heart failure, Diverticulosis, HTN, DLP who presented to the ER with complaints of shortness of breath and wheezing x 2 weeks. Patient was recently treated for COPD exacerbation as an outpatient with a course of prednisone PO. In the ER patient had a workup for DVT / PE which was negative, but was also found to have afib with RVR. She received Cardizem IV and then was transitioned to PO. Patient was seen and examined at the bedside. She denies any problems overnight , denies chest pain, palpitations or dizziness. Reports improvement in shortness of breath. Objective: Vitals (See below) General: Lying in bed, no acute distress, comfortable, AAOx3 HEENT: NC, AT CVS: Irregularly irregular, +S1S2 Lungs: Fair air entry b/l, -w/r/r Abdomen: Soft, ND, NT, +BSx4 Extremities: +PPx4, - edema, - calf tenderness Assessment and plan: 1. Dyspnea - likely multifactorial 2/2 Acute COPD exacerbation, Acute decompensated diastolic CHF, New onset atrial fibrillation - Presented with SOB and wheezing - CTA chest negative for PE and pneumonia - ECHO reveals diastolic dysfunction and signs of right heart failure, preserved EF - c/w Duoneb, Solumedrol and Pulmicort - will begin to taper solumedrol - Home lasix dose held; currently on Lasix 40 IV q4h; in last 36 hours has been negative >3 liters 2. New onset atrial fibrillation - CHADSVASC of 3 - Currently rate is well controlled with digoxin and increased dose of diltiazem - Anticoagulation with lovenox therapeutic - Dr. Wong (Cardiology) following - appreciate his input - Once rate is well controlled will switch to continuous release of diltiazem and novel anticoagulation 3. Recent history of cellulitis of lower extremities - No erythema / warmth or tenderness noted at this time - will complete course of Keflex 4. Chronic diastolic heart failure - possibly 2/2 hypertensive cardiomyopathy - ECHO report pending - c/w Spironolactone, Lasix, 5. HTN - BP well controlled - Amlodipine on hold - c/w Diltiazem 6. Iron deficiency anemia - Hg in 05/2016 was 9-10 - Colonoscopy 10 years ago with diverticulosis - Hg stable at this time - Iron panel consistent with ALEX - FOBT pending - c/w ferrous sulfate 6. Leukocytosis - possibly 2/2 medications (corticosteroids), possibly 2/2 infection (history cellulis of LE) - review of systems is negative; no cough, diarrhea or dysuria - urinalysis is clear - CRP is not significantly elevated - will complete course of Keflex 7. DLP - c/w atorvastatin 8. GI prophylaxis - c/w protonix 9. DVT prophylaxis - full anticoagulation for atrial fibrillation VS,Fishbone, I+O VS, Fishbone, I+O Laboratory Tests 11/20/16 04:44 Calcium Level 9.1, Red Blood Count 3.78 L, Mean Corpuscular Volume 76.9 L, Mean Corpuscular Hemoglobin 22.4 L, Mean Corpuscular Hemoglobin Concent 29.1 L, Red Cell Distribution Width 19.6 H, Neutrophils (%) (Auto) 92.6 H, Lymphocytes (%) ( Auto) 3.4 L, Monocytes (%) (Auto) 3.2, Eosinophils (%) (Auto) 0.2, Basophils (% ) (Auto) 0.1, Neutrophils # (Auto) 18.0 H, Lymphocytes # (Auto) 0.7 L, Monocytes # (Auto) 0.6, Eosinophils # (Auto) 0.0, Basophils # (Auto) 0.0 Vital Signs Date Time Temp Pulse Resp B/P Pulse Ox O2 Delivery O2 Flow Rate FiO2 11/20/16 08:38 79 11/20/16 08:00 Room Air 11/20/16 08:00 98.1 20 123/72 99 I&O- Last 24 Hours up to 6 AM 11/20/16 05:59 Intake Total 1615 ml Output Total 2725 ml Balance -1110 ml CONNOR CHRISTINA MD Nov 20, 2016 11:44
[2016-11-20] MEDS ORDERED: ELIQ5TAB PO (11:46)
[2016-11-20 12:00] VITALS: BP 129/73
[2016-11-20 16:00] VITALS: BP 146/69
--- NOTE | 2016-11-20 19:26 | IPN ---
CARDIOLOGY PROGRESS NOTE: 11/20/2016 SUBJECTIVE: Claims to feel her breathing is considerably improved with IV diuresis. She has noticed when she gets up and ambulate in her room. Her heart rate on the monitor continues to be very rapid. Has been free of any chest discomfort or dizziness. Is tolerating her medications to this point without problem. OBJECTIVE: Pleasant, obese, slightly barrel-chested late middle-aged lady sitting comfortably on the edge of the bed. No pallor despite her anemia. Heart rate 128 and irregular. Blood pressure 146/98 standing. Respiratory rate 18 per minute, Oxygen saturation 97% on room air. She is afebrile. Weight today is unchanged from yesterday despite impressive negative fluid balance? accuracy. Normal oral moisture. Trachea midline. Jugular veins are just visible at the level of her clavicle with her sitting. Improved air entry for both lung stanley with no current inspiratory rales. Slight prolongation of expiration with no audible wheeze. Has no sacral pitting bit still has some bilateral lower leg pitting. 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 Her ventricular response atrial fibrillation. Her ventricular response atrial fibrillation remains. Quite rapid. BLOOD WORK: Complete blood count today shows a hemoglobin stable at 8.4, white blood cell count slightly less than yesterday. No platelet count. Her chemistry shows a marginal metabolic ankylosis. Potassium has improved with KCL. BUN is slightly up from yesterday at 31, creatinine improved at 1.07. Glucose this morning 134. IMPRESSION/PLAN: 1. Paroxysmal atrial fibrillation: Remains free of palpitations at this time, despite her ongoing rapid ventricular response. She will continue on the same digoxin 0.25 mg daily but her diltiazem dosage has been increased to 120 mg by mouth every 6 hours, hold for heart rate less than 80 beats per minute. Remains on low molecular rate Heparin according to her primary service. Has been on iron replacement therapy without adverse affect. No obvious bleeding at this time. 2. Abnormal EKG: Remains free of any chest discomfort. No new repolarization abnormality. Planning on maintaining her atorvastatin, increasing her diltiazem and she remains on low molecular rate Heparin. 3. Heart failure (diastolic/acute): Clearly is significantly improved from her admission with her BUN and creatinine slightly up from yesterday. My plan is to discontinue her IV Lasix after midnight tonight and start her back on Lasix 40 mg daily tomorrow. Followup PA and left lateral chest x-ray would be obtained in the morning. 4. Hypertensive heart disease (benign with heart failure): Blood pressure remains impressive despite parenteral diuretic therapy and diltiazem. I suspect the increase dose of diltiazem should likely be effective in controlling her blood pressure along with her Lasix 40 mg daily and spirinolactone. With switching her Lasix from (intravenous) IV to by mouth, we will reduce her KCL supplement to 20 mEq daily. 5. Cor pulmonale/right heart failure: Appears to be doing quite well with her diuretic therapy and bronchodilators and steroids. I hope to obtain a nocturnal asymmetry on her today, screen for obstructive sleep apnea with her observed pulmonary hypertension. 6. Aortic valve disorder (nonrheumatic)/aortic stenosis: No exculpatory change. As previously mentioned I can not detect a systolic murmur. 7. Hypercholesterolemia: Remains on dietary measures with atorvastatin. I am cautiously optimistic that she will be able to be discharged tomorrow, likely on digoxin 0.25 mg daily, diltiazem 240 mg by mouth twice a day (bracket sustained release), Lasix 40 mg daily, spironolactone 25 mg daily and oral anticoagulant however provider services wishes. I suspect Kailash may well be fine but she will need to monitor her stools, carefully for further bleeding. Also require iron replacement therapy. My office will be contacting the floor with a followup appointment for her in approximately 7 to 10 days time.
[2016-11-20 20:00] VITALS: BP 134/69
[2016-11-20] MEDS: ATORVASTATIN 20 MG TAB PO SCH (20:42)
[2016-11-21] VITALS (7 sets, daily range): BP systolic 123–156; BP diastolic 65–81
[2016-11-21] MEDS: IPRATROPIUM 0.5MG/ALBUTEROL 2.5MG INH SOL UD 3ML (DUONEB)(J7620) NEB SCH ×4 (01:16→20:00)
[2016-11-21 05:24] LABS: BASO % 0.1 % (0.0-1.0); EOS % 0.2 % (0.0-3.0); LARGE UNSTAINED CELL # 0.1 K/mm3 (0.0-0.4); LARGE UNSTAINED CELL % 0.4 % (0.0-4.0); LYMPH # 0.7 K/mm3 (1.5-4.5); LYMPH % 3.1 % (24.0-44.0); MEAN CORPUSCULAR HGB CONC 28.3 g/dl (32.0-36.5); MONO # 0.7 K/mm3 (0.0-0.8); MONO % 3.3 % (0.0-5.0); NEUTROPHILS # 19.4 K/mm3 (1.8-7.7); NEUTROPHILS % 92.8 % (36.0-66.0); PLATELET COUNT, AUTOMATED 222 k/mm3 (150-450); WHITE BLOOD COUNT 20.9 K/mm3 (4.0-10.0)
[2016-11-21 05:29] LABS: CALCIUM LEVEL 9.3 MG/DL (8.8-10.2); CREATININE FOR GFR 1.1 MG/DL (0.55-1.02); GLOMERULAR FILTRATION RATE 53.6 (>45); POTASSIUM SERUM 4.4 MEQ/L (3.5-5.1)
[2016-11-21] MEDS: methylPREDNISolone INJ 40 MG/1 ML VIAL (J2920) IV SCH ×2 (06:15→18:06)
[2016-11-21] MEDS: CEPHALEXIN 500 MG CAP PO SCH ×4 (06:16→23:57)
[2016-11-21] MEDS: FORMOTEROL FUMARATE 20 MCG/2 ML INHALATION SOLUTION (PERFOROMIST) INH SCH ×2 (07:33→20:14)
[2016-11-21] MEDS: BUDESONIDE 0.5 MG/2 ML INHALATION SUSPENSION INH SCH ×2 (07:33→20:14)
[2016-11-21] MEDS: PANTOPRAZOLE 40MG TAB (PROTONIX) PO SCH (08:42)
[2016-11-21] MEDS: DOCUSATE SODIUM 100 MG CAP PO SCH ×2 (08:42→20:48)
[2016-11-21] MEDS: SPIRONOLACTONE 12.5MG PER 1/2 TABLET PO SCH (08:42)
[2016-11-21] MEDS: POTASSIUM CHLORIDE 10 MEQ SR TABLET PO SCH (08:42)
[2016-11-21] MEDS: FERROUS SULFATE 325MG TAB PO SCH ×3 (08:43→20:48)
[2016-11-21] MEDS: FUROSEMIDE 40 MG TAB PO SCH (08:43)
[2016-11-21] MEDS: DIGOXIN 0.25 MG TAB PO SCH (08:43)
[2016-11-21] MEDS: ENOXAPARIN 100MG/1ML SYRINGE (J1650) SC SCH (08:43)
--- NOTE | 2016-11-21 09:14 | REP ---
CHEST X-RAY PA AND LATERAL: 11/21/2016. Clinical history: Follow up CHF. Comparison: Chest x-ray 11/17/2016, 10/07/2016, CT angiogram 11/17/2016. Findings: Lung stanley are well inflated. There is no pleural effusion. Epicardial fat pad along the left heart border, smaller on the right noted. Some basilar patchy atelectatic change in the right side above the diaphragm. No gross cardiomegaly with heart size smaller than on the previous study. Venous hypertension or pulmonary edema. Pulmonary arteries are mildly prominent. The aorta is tortuous but without gross aneurysm. Airway intact. Bony thoracic spine without compression deformity. Impression: 1. Heart size smaller without gross cardiomegaly, vascular redistribution, edema or effusion. 2. Base fibrotic and/or atelectatic changes without dense consolidation. 3. Tortuous aorta without aneurysm. Signed by Mic Mathews MD 11/21/2016 09:05 A
[2016-11-21] MEDS ORDERED: SLF 3 ML SYR IV PRN (12:30)
--- NOTE | 2016-11-21 13:01 | IPNPDOC ---
Text Note Date of Service The patient was seen on 11/21/16 at 12:57. NOTE Subjective: Patient is a 61 year old female with a PMHx of COPD / Asthma, ALEX, Diastolic heart failure, Diverticulosis, HTN, DLP who presented to the ER with complaints of shortness of breath and wheezing x 2 weeks. Patient was recently treated for COPD exacerbation as an outpatient with a course of prednisone PO. In the ER patient had a workup for DVT / PE which was negative, but was also found to have afib with RVR. She received Cardizem IV and then was transitioned to PO. Patient was seen and examined at the bedside. Again she denies chest pain, palpitations or dizziness. Heart rate has been better controlled. Objective: Vitals (See below) General: Lying in bed, no acute distress, comfortable, AAOx3 HEENT: NC, AT CVS: Irregularly irregular, +S1S2 Lungs: Fair air entry b/l, -w/r/r Abdomen: Soft, ND, NT, +BSx4 Extremities: +PPx4, - edema, - calf tenderness Assessment and plan: 1. Dyspnea - likely multifactorial 2/2 Acute COPD exacerbation, Acute decompensated diastolic CHF, New onset atrial fibrillation - Presented with SOB and wheezing - CTA chest negative for PE and pneumonia - ECHO reveals diastolic dysfunction and signs of right heart failure, preserved EF - c/w Duoneb, Solumedrol and Pulmicort - will continue to taper solumedrol - Home lasix dose held; currently on Lasix 40 IV q4h; Cumulative output of ~6.5 Liters 2. New onset atrial fibrillation - CHADSVASC of 3 - Currently rate is well controlled with digoxin and increased dose of diltiazem ; upon discharge to provide BID dosing of Cardizem CR - Will start Eliquis for anticoagulation; s/p lovenox therapeutic - Dr. Wong (Cardiology) following - appreciate his input 3. Recent history of cellulitis of lower extremities - No erythema / warmth or tenderness noted at this time - will complete course of Keflex 4. Chronic diastolic heart failure - possibly 2/2 hypertensive cardiomyopathy - ECHO report pending - c/w Spironolactone, Lasix, 5. HTN - BP well controlled - Amlodipine on hold - c/w Diltiazem 6. Iron deficiency anemia - Hg in 05/2016 was 9-10 - Colonoscopy 10 years ago with diverticulosis - Hg stable at this time - Iron panel consistent with ALEX - FOBT pending - c/w ferrous sulfate 6. Leukocytosis - possibly 2/2 medications (corticosteroids), possibly 2/2 infection (history cellulis of LE) - review of systems is negative; no cough, diarrhea or dysuria - urinalysis is clear - CRP is not elevated - will complete course of Keflex 7. DLP - c/w atorvastatin 8. GI prophylaxis - c/w protonix 9. DVT prophylaxis - full anticoagulation Eliquis VS,Fishbone, I+O VS, Fishbone, I+O Laboratory Tests 11/21/16 04:43 Calcium Level 9.3, Red Blood Count 4.03, Mean Corpuscular Volume 78.0 L, Mean Corpuscular Hemoglobin 22.0 L, Mean Corpuscular Hemoglobin Concent 28.3 L, Red Cell Distribution Width 20.0 H, Neutrophils (%) (Auto) 92.8 H, Lymphocytes (%) ( Auto) 3.1 L, Monocytes (%) (Auto) 3.3, Eosinophils (%) (Auto) 0.2, Basophils (% ) (Auto) 0.1, Neutrophils # (Auto) 19.4 H, Lymphocytes # (Auto) 0.7 L, Monocytes # (Auto) 0.7, Eosinophils # (Auto) 0.0, Basophils # (Auto) 0.0 Vital Signs Date Time Temp Pulse Resp B/P Pulse Ox O2 Delivery O2 Flow Rate FiO2 11/21/16 12:00 98.2 90 18 127/70 97 Room Air I&O- Last 24 Hours up to 6 AM 11/21/16 06:00 Intake Total 1350 ml Output Total 2950 ml Balance -1600 ml CONNOR CHRISTINA MD Nov 21, 2016 13:01
[2016-11-21] MEDS: SLF 3 ML SYR IV SCH ×2 (13:26→20:48)
[2016-11-21] MEDS: MOM 30ML SUSPENSION UDC PO PRN (15:13)
[2016-11-21] MEDS: ATORVASTATIN 20 MG TAB PO SCH (20:48)
[2016-11-21] MEDS: APIXABAN 5 MG TAB (ELIQUIS) PO SCH (20:48)
[2016-11-22] VITALS: BP 133/79
[2016-11-22] MEDS: IPRATROPIUM 0.5MG/ALBUTEROL 2.5MG INH SOL UD 3ML (DUONEB)(J7620) NEB SCH ×4 (01:14→20:00)
[2016-11-22 04:00] VITALS: BP 122/73
[2016-11-22 04:33] LABS: BASO % 0.1 % (0.0-1.0); EOS % 0.2 % (0.0-3.0); LARGE UNSTAINED CELL # 0.1 K/mm3 (0.0-0.4); LARGE UNSTAINED CELL % 0.6 % (0.0-4.0); LYMPH # 0.8 K/mm3 (1.5-4.5); LYMPH % 3.6 % (24.0-44.0); MEAN CORPUSCULAR HEMOGLOBIN 22.6 pg (27.0-33.0); MEAN CORPUSCULAR HGB CONC 28.5 g/dl (32.0-36.5); MEAN CORPUSCULAR VOLUME 79.1 fl (80.0-96.0); MONO % 4.4 % (0.0-5.0); NEUTROPHILS # 20.4 K/mm3 (1.8-7.7); NEUTROPHILS % 91.2 % (36.0-66.0); PLATELET COUNT, AUTOMATED 220 k/mm3 (150-450); RED CELL DISTRIBUTION WIDTH 20.2 % (11.5-14.5); WHITE BLOOD COUNT 22.3 K/mm3 (4.0-10.0)
[2016-11-22 04:42] LABS: CALCIUM LEVEL 9.4 MG/DL (8.8-10.2); CREATININE FOR GFR 1.07 MG/DL (0.55-1.02); GLOMERULAR FILTRATION RATE 55.3 (>45); POTASSIUM SERUM 4.7 MEQ/L (3.5-5.1)
[2016-11-22] MEDS: SLF 3 ML SYR IV SCH ×3 (05:57→20:01)
[2016-11-22] MEDS: CEPHALEXIN 500 MG CAP PO SCH ×3 (05:57→17:06)
[2016-11-22] MEDS: methylPREDNISolone INJ 40 MG/1 ML VIAL (J2920) IV SCH (06:00)
[2016-11-22 08:00] VITALS: BP 147/77
[2016-11-22] MEDS: PANTOPRAZOLE 40MG TAB (PROTONIX) PO SCH (08:00)
[2016-11-22] MEDS: DOCUSATE SODIUM 100 MG CAP PO SCH ×2 (08:00→20:01)
[2016-11-22] MEDS: POTASSIUM CHLORIDE 10 MEQ SR TABLET PO SCH (08:00)
[2016-11-22] MEDS: SPIRONOLACTONE 12.5MG PER 1/2 TABLET PO SCH (08:00)
[2016-11-22] MEDS: FERROUS SULFATE 325MG TAB PO SCH ×3 (08:00→20:01)
[2016-11-22] MEDS: APIXABAN 5 MG TAB (ELIQUIS) PO SCH ×2 (08:00→20:01)
[2016-11-22] MEDS: DIGOXIN 0.25 MG TAB PO SCH (08:01)
[2016-11-22] MEDS: FUROSEMIDE 40 MG TAB PO SCH (08:01)
[2016-11-22] MEDS: FORMOTEROL FUMARATE 20 MCG/2 ML INHALATION SOLUTION (PERFOROMIST) INH SCH ×2 (08:44→20:34)
[2016-11-22] MEDS: BUDESONIDE 0.5 MG/2 ML INHALATION SUSPENSION INH SCH ×2 (08:44→20:34)
--- NOTE | 2016-11-22 08:58 | ECGEPIP ---
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
--- NOTE | 2016-11-22 09:18 | NOCOX ---
DATE OF RECORDIN11/21/2016 INTERPRETATION: Recording overnight oximetry was done on room air. A total of 8 hours and 11 minutes of data was reviewed. Mean oxygenation for the study was 94% with a minimum recorded value of 81%, although that appeared artificial. True minimum appeared to be in the mid 80s. For the entire study, she spent 6.4 % of the night below 90% (31 minutes and 32 seconds), though the longest continuous time was 36 seconds. There were fluctuations to the SpO2 wave form that may be suggestive of sleep-disordered breathing. IMPRESSION: 1. Difficult to interpret overnight oximetry. She is listed as awake for the vast majority of time. In the time that she is listed as sleeping corresponds to the time when her saturations were lower. 2. Appears to have acceptable oxygenation, as the vast majority of time spent below 90% was at 89%. Percentage time less than 88% was only a couple of minutes. Again, difficult to interpret, as she was not listed as sleeping during the majority of the night. 3. Fluctuation in the SpO2 wave form may be indicative of sleep-disordered breathing. Clinical correlation will be necessary. Edited 11/22/2016 [facility] KATHY
[2016-11-22 12:00] VITALS: BP 138/81
--- NOTE | 2016-11-22 12:25 | IPNPDOC ---
Text Note Date of Service The patient was seen on 11/22/16 at 12:20. NOTE Subjective: Patient is a 61 year old female with a PMHx of COPD / Asthma, ALEX, Diastolic heart failure, Diverticulosis, HTN, DLP who presented to the ER with complaints of shortness of breath and wheezing x 2 weeks. Patient was recently treated for COPD exacerbation as an outpatient with a course of prednisone PO. In the ER patient had a workup for DVT / PE which was negative, but was also found to have afib with RVR. She received Cardizem IV and then was transitioned to PO. Patient was seen and examined at the bedside. Patient noted that her HR was well controlled at night, but her morning dose of medications was held because of of holding parameters. Now her HR is a little elevated. She remains asymptomatic, denies chest pain, shortness of breath or palpitations. Objective: Vitals (See below) General: Lying in bed, no acute distress, comfortable, AAOx3 HEENT: NC, AT CVS: Irregularly irregular, +S1S2 Lungs: Fair air entry b/l, + mild wheezing, no rhonchi / crackles Abdomen: Soft, ND, NT, +BSx4 Extremities: +PPx4, trace edema, - calf tenderness Assessment and plan: 1. Dyspnea - likely multifactorial 2/2 Acute COPD exacerbation, Acute decompensated diastolic CHF, New onset atrial fibrillation - Presented with SOB and wheezing - CTA chest negative for PE and pneumonia - ECHO reveals diastolic dysfunction and signs of right heart failure, preserved EF - c/w Duoneb, Solumedrol and Pulmicort - will continue to taper solumedrol - on Lasix 40 daily; s/p IV lasix 2. New onset atrial fibrillation - CHADSVASC of 3 - Currently rate is well controlled with digoxin and increased dose of diltiazem ; upon discharge to provide BID dosing of Cardizem CR - c/w Eliquis for anticoagulation; s/p lovenox therapeutic - Dr. Wong (Cardiology) following - appreciate his input 3. Recent history of cellulitis of lower extremities - No erythema / warmth or tenderness noted at this time - will stop Keflex today 4. Chronic diastolic heart failure - possibly 2/2 hypertensive cardiomyopathy - ECHO report pending - c/w Spironolactone and Lasix 5. HTN - BP well controlled - Amlodipine on hold - c/w Diltiazem 6. Iron deficiency anemia - Hg in 05/2016 was 9-10 - Colonoscopy 10 years ago with diverticulosis - Hg stable at this time - Iron panel consistent with ALEX - FOBT pending - c/w ferrous sulfate 6. Leukocytosis - possibly 2/2 medications (corticosteroids), less likely 2/2 infection (history cellulitis of LE) - review of systems is negative; no cough, diarrhea or dysuria - urinalysis is clear - CRP is not elevated - s/p Keflex 7. DLP - c/w atorvastatin 8. GI prophylaxis - c/w protonix 9. DVT prophylaxis - full anticoagulation Eliquis VS,Fishbone, I+O VS, Fishbone, I+O Laboratory Tests 11/22/16 04:06 Calcium Level 9.4, Red Blood Count 3.92 L, Mean Corpuscular Volume 79.1 L, Mean Corpuscular Hemoglobin 22.6 L, Mean Corpuscular Hemoglobin Concent 28.5 L, Red Cell Distribution Width 20.2 H, Neutrophils (%) (Auto) 91.2 H, Lymphocytes (%) ( Auto) 3.6 L, Monocytes (%) (Auto) 4.4, Eosinophils (%) (Auto) 0.2, Basophils (% ) (Auto) 0.1, Neutrophils # (Auto) 20.4 H, Lymphocytes # (Auto) 0.8 L, Monocytes # (Auto) 1.0 H, Eosinophils # (Auto) 0.0, Basophils # (Auto) 0.0 Vital Signs Date Time Temp Pulse Resp B/P Pulse Ox O2 Delivery O2 Flow Rate FiO2 11/22/16 12:00 99.8 85 18 138/81 96 Room Air I&O- Last 24 Hours up to 6 AM 11/22/16 05:59 Intake Total 1350 ml Output Total 1275 ml Balance 75 ml CONNOR CHRISTINA MD Nov 22, 2016 12:25
[2016-11-22 16:00] VITALS: BP 127/60
[2016-11-22 20:00] VITALS: BP 125/62
[2016-11-22] MEDS: ATORVASTATIN 20 MG TAB PO SCH (20:01)
[2016-11-23] VITALS: BP 132/68
[2016-11-23] MEDS: CEPHALEXIN 500 MG CAP PO SCH ×2 (00:21→05:13)
[2016-11-23] MEDS: IPRATROPIUM 0.5MG/ALBUTEROL 2.5MG INH SOL UD 3ML (DUONEB)(J7620) NEB SCH ×2 (01:00→08:00)
[2016-11-23 04:00] VITALS: BP 116/61
[2016-11-23 05:05] LABS: BASO % 0.1 % (0.0-1.0); EOS % 0.2 % (0.0-3.0); LARGE UNSTAINED CELL # 0.2 K/mm3 (0.0-0.4); LYMPH # 1.8 K/mm3 (1.5-4.5); LYMPH % 7.6 % (24.0-44.0); MEAN CORPUSCULAR HEMOGLOBIN 22.9 pg (27.0-33.0); MEAN CORPUSCULAR HGB CONC 29.3 g/dl (32.0-36.5); MEAN CORPUSCULAR VOLUME 78.3 fl (80.0-96.0); MONO # 1.2 K/mm3 (0.0-0.8); MONO % 5.1 % (0.0-5.0); NEUTROPHILS # 19.6 K/mm3 (1.8-7.7); NEUTROPHILS % 85.9 % (36.0-66.0); PLATELET COUNT, AUTOMATED 205 k/mm3 (150-450); RED CELL DISTRIBUTION WIDTH 20.2 % (11.5-14.5); WHITE BLOOD COUNT 22.8 K/mm3 (4.0-10.0)
[2016-11-23 05:06] LABS: CALCIUM LEVEL 9.2 MG/DL (8.8-10.2); CREATININE FOR GFR 1.04 MG/DL (0.55-1.02); GLOMERULAR FILTRATION RATE 57.2 (>45)
[2016-11-23 05:13] VITALS: BP 116/61
[2016-11-23] MEDS: SLF 3 ML SYR IV SCH (05:13)
[2016-11-23 08:00] VITALS: BP 118/72
[2016-11-23] MEDS: FORMOTEROL FUMARATE 20 MCG/2 ML INHALATION SOLUTION (PERFOROMIST) INH SCH (08:00)
[2016-11-23] MEDS: BUDESONIDE 0.5 MG/2 ML INHALATION SUSPENSION INH SCH (08:00)
[2016-11-23] MEDS ORDERED: methylPREDNISolone INJ 40 MG/1 ML VIAL (J2920) IV SCH (09:00)
[2016-11-23] MEDS: PANTOPRAZOLE 40MG TAB (PROTONIX) PO SCH (09:07)
[2016-11-23] MEDS: DOCUSATE SODIUM 100 MG CAP PO SCH (09:07)
[2016-11-23] MEDS: DIGOXIN 0.25 MG TAB PO SCH (09:08)
[2016-11-23] MEDS: POTASSIUM CHLORIDE 10 MEQ SR TABLET PO SCH (09:08)
[2016-11-23] MEDS: APIXABAN 5 MG TAB (ELIQUIS) PO SCH (09:08)
[2016-11-23] MEDS: FUROSEMIDE 40 MG TAB PO SCH (09:09)
[2016-11-23] MEDS: SPIRONOLACTONE 12.5MG PER 1/2 TABLET PO SCH (09:09)
[2016-11-23] MEDS: FERROUS SULFATE 325MG TAB PO SCH (09:09)
[2016-11-23] MEDS ORDERED: DIGO0.25 PO (10:37)
[2016-11-23] MEDS ORDERED: PRED10TA FT (10:37)
[2016-11-23] MEDS ORDERED: FERR325T PO (10:37)
[2016-11-23] MEDS ORDERED: CARD240C5 PO (10:37)
[2016-11-23] MEDS ORDERED: COLA100C PO (10:37)
[2016-11-23] MEDS ORDERED: ATOR1TAB21 PO (10:37)
--- NOTE | 2016-11-23 18:59 | DSES ---
DATE OF ADMISSION: 11/17/2016 DATE OF DISCHARGE: 11/23/2016 ATTENDING PHYSICIAN: Haleigh Wynne MD CONSULTING PHYSICIANS: David Wong MD REFERRING PHYSICIANS: None. PRIMARY CARE PHYSICIAN: Dr. Lucas Barr CONDITION ON DISCHARGE: Stable. FINAL DIAGNOSES: New onset atrial fibrillation and chronic obstructive pulmonary disease (COPD) exacerbation. PROCEDURES: None. HISTORY OF PRESENT ILLNESS: The patient is a 61-year-old female with a past medical history of COPD and asthma, iron deficiency anemia, diastolic heart failure, diverticulosis, hypertension, dyslipidemia, who presented to the emergency room with complaints of shortness of breath and wheezing for 2 weeks duration. The patient was recently treated for COPD exacerbation as an outpatient with a course of prednisone by mouth. In the emergency room, patient had a workup for deep venous thrombosis (DVT) and pulmonary embolism which was negative, but she was found to have atrial fibrillation with rapid ventricular response. She received Cardizem intravenous (IV) and then was transitioned to by mouth. HOSPITAL COURSE: 1. Dyspnea. Likely multifactorial in etiology secondary to acute COPD exacerbation and acute decompensated diastolic heart failure as well as new onset atrial fibrillation. She initially presented with shortness of breath and wheezing. CTA of her chest was negative for any pulmonary embolism or pneumonia. Echocardiogram revealed diastolic dysfunction with signs of right heart failure and preserved ejection fraction. She continued with DuoNebs, Solu-Medrol, and Pulmicort. She was on Solu-Medrol initially and has been tapered to prednisone by mouth. Patient has received Lasix every 4 hours to remain in negative fluid balance, however she has been transitioned to Lasix 40 mg by mouth daily. 2. New onset atrial fibrillation. Her [id number] score is 3. Currently she has been rate controlled with digoxin and diltiazem. She has been on Cardizem every 6 hours while in hospital and she has been transitioned to an extended release version of Cardizem, however instead of a daily dosing of her extended release she has been put on a twice a day dosing of her extended release Cardizem because of difficult to control atrial fibrillation. For her anticoagulation she was initially put on Lovenox therapeutic but has been transitioned to Eliquis. Cardiology has been following the patient and has cleared her for discharge. 3. History of recent cellulitis of the lower extremities. There is no appreciable erythema, warmth, or tenderness of her lower extremities. She was initially put on Keflex but has been discontinued. 4. Chronic diastolic heart failure, possibly secondary to hypertensive cardiomyopathy. She has been continued with spironolactone and Lasix. 5. Hypertension. Blood pressure has remained well controlled. Amlodipine has been put on hold. Continue with diltiazem. 6. Iron deficiency anemia. Hemoglobin in May of 2016 was between 9-10. Colonoscopy 10 years ago showed diverticulosis. Hemoglobin is stable at this time. Iron panel was consistent with iron deficiency anemia. Fecal occult blood test (FOBT) was pending. Continue with ferrous sulfate. 7. Leukocytosis, likely secondary to medications, corticosteroids, less likely secondary to infection. Review of systems has been negative. She denied any cough, diarrhea, or dysuria. Urinalysis has been clear. C-reactive protein (CRP) has not remained elevated. CT of her chest did not reveal any signs of pneumonia. She completed the course of Keflex. 8. Dyslipidemia. Continue with her atorvastatin. 9. Gastrointestinal (GI) prophylaxis. Continue with Protonix. 10. Deep venous thrombosis (DVT) prophylaxis. On full anticoagulation with Eliquis. DISCHARGE MEDICATIONS: Patient has been discharged home with: - albuterol two puffs inhaled as needed for shortness of breath - Symbicort two puffs inhaled twice a day - calcium 1800 mg by mouth daily - furosemide 40 mg by mouth daily New medications which have been prescribed include: - Eliquis 5 mg by mouth twice a day - atorvastatin 40 mg by mouth nightly - digoxin 0.25 mg by mouth daily - diltiazem extended release 240 mg by mouth twice a day - docusate 100 mg by mouth twice a day - ferrous sulfate 325 mg by mouth three times a day - prednisone 10 mg to be taken as directed on a tapering dose for the next 8 days Medications we are stopping include: - cephalexin 500 mg by mouth every 6 hours - prednisone 20 mg by mouth daily DISCHARGE INSTRUCTIONS: The patient has been advised to followup with her primary care provider and cardiology within the next 7 days. She has been advised to remain compliant with treatment plan and medications. She is advised to call to confirm and schedule her appointments and to return to the emergency room if she experiences any problems. TIME SPENT ON DISCHARGE: 35 minutes
== END 2016-11-23 12:40 | disposition home or self-care (01) | DRG 201 ==
LOC: M ED 15:01 → EEVIPCON 22:01 → M ED INP 22:01 → M ICU 23:54
PROVIDERS: ADMIT Internal Medicine Nephrology; ATTEND Internal Medicine
DX: I48.0 Paroxysmal atrial fibrillation (principal); I50.33 Acute on chronic diastolic (congestive) heart failure; I27.81 Cor pulmonale (chronic); J44.1 Chronic obstructive pulmonary disease with (acute) exacerbation; I11.0 Hypertensive heart disease with heart failure; D50.9 Iron deficiency anemia, unspecified; D72.829 Elevated white blood cell count, unspecified; E78.00 Pure hypercholesterolemia, unspecified; E66.9 Obesity, unspecified; Z79.52 Long term (current) use of systemic steroids; Z79.899 Other long term (current) drug therapy; Z68.33 Body mass index [BMI] 33.0-33.9, adult; Z87.891 Personal history of nicotine dependence; I35.0 Nonrheumatic aortic (valve) stenosis; E78.5 Hyperlipidemia, unspecified

== ENCOUNTER → 2017-01-22 | Outpatient (CLI) | payer OTHER ==
[~2017-01-22] MED LIST changes: +ALBU17IN INH; +ALBU83IN INH; +ATOR1TAB21 PO; +CALC600T10 PO; +CARD240C5 PO; +COLA100C PO; +DIGO0.25 PO; +ELIQ5TAB PO; +FERR325T PO; +FURO40TA2 PO; +KEFL500C7 PO; +PRED10TA FT; +PRED20TA PO; +SYMB16INH INH
[2017-01-22 13:30] LABS: MEAN CORPUSCULAR HEMOGLOBIN 26.5 pg (27.0-33.0); MEAN CORPUSCULAR HGB CONC 30.8 g/dl (32.0-36.5); MEAN CORPUSCULAR VOLUME 86.2 fl (80.0-96.0); RED CELL DISTRIBUTION WIDTH 18.6 % (11.5-14.5); WHITE BLOOD COUNT 9.9 K/mm3 (4.0-10.0)
[2017-01-22 14:01] LABS: ALBUMIN 2.9 GM/DL (3.2-5.2); ALBUMIN/GLOBULIN RATIO 0.88 (1.00-1.93); BILIRUBIN,TOTAL 0.4 MG/DL (0.2-1.0); CALCIUM LEVEL 9.3 MG/DL (8.8-10.2); CREATININE FOR GFR 1.13 MG/DL (0.55-1.02); GLOMERULAR FILTRATION RATE 51.9 (>45); POTASSIUM SERUM 3.3 MEQ/L (3.5-5.1); TOTAL PROTEIN 6.2 GM/DL (6.4-8.2)
== END ==
LOC: M LAB 12:26
PROVIDERS: ATTEND Family Medicine
DX: D64.9 Anemia, unspecified (principal)

== ENCOUNTER → 2017-02-19 | Outpatient (CLI) | payer OTHER ==
[~2017-02-19] MED LIST changes: -COLA100C PO; +COLA100C3 PO
[2017-02-19 14:45] LABS: ALBUMIN 3.1 GM/DL (3.2-5.2); CALCIUM LEVEL 9.1 MG/DL (8.8-10.2); CREATININE FOR GFR 1.29 MG/DL (0.55-1.02); GLOMERULAR FILTRATION RATE 44.6 (>45); MAGNESIUM LEVEL 1.8 MG/DL (1.8-2.4); PHOSPHORUS LEVEL 3.3 MG/DL (2.5-4.9); POTASSIUM SERUM 4.1 MEQ/L (3.5-5.1)
== END ==
LOC: M LAB 13:41
PROVIDERS: ATTEND Internal Medicine Cardiovascular Disease
DX: I50.32 Chronic diastolic (congestive) heart failure (principal)

== ENCOUNTER → 2017-03-05 | Outpatient (CLI) | payer OTHER | LOC: M LAB 13:53 | PROVIDERS: ATTEND Internal Medicine Cardiovascular Disease | DX: I48.0 Paroxysmal atrial fibrillation (principal) ==

== ENCOUNTER → 2017-03-11 | Outpatient (CLI) | payer OTHER ==
[2017-03-11 14:28] LABS: ALBUMIN 2.9 GM/DL (3.2-5.2); CALCIUM LEVEL 9.2 MG/DL (8.8-10.2); CREATININE FOR GFR 1.46 MG/DL (0.55-1.02); GLOMERULAR FILTRATION RATE 38.6 (>45); PHOSPHORUS LEVEL 2.6 MG/DL (2.5-4.9); POTASSIUM SERUM 3.2 MEQ/L (3.5-5.1)
== END ==
LOC: M LAB 13:28
PROVIDERS: ATTEND Internal Medicine Cardiovascular Disease
DX: I50.32 Chronic diastolic (congestive) heart failure (principal)

== ENCOUNTER 2017-06-29 09:53 | Emergency (ER) | payer OTHER ==
[~2017-06-29] VITALS: Ht 167.6 cm; Wt 88.4 kg
[~2017-06-29 09:53] MED LIST changes: -CALC600T10 PO; +CALC600T31 PO; -COLA100C3 PO; +COLA100C5 PO; +FERR1TAB8 PO; -FERR325T PO; +KEFL500C17 PO; -KEFL500C7 PO; -MUCI600T34 PO; +MUCI600T37 PO; -PRED10TA FT; +PRED10TA2 FT
[2017-06-29 09:54] VITALS: BP 153/80
[2017-06-29] MEDS ORDERED: IBUPROFEN 800 MG TAB PO ONE (11:15)
[2017-06-29] MEDS ORDERED: NORCOTAB PO (12:08)
[2017-06-29] MEDS ORDERED: ALBU83IN INH (12:08)
--- NOTE | 2017-06-29 12:33 | REP ---
UNILATERAL LEFT RIBS, PA CHEST, FIVE VIEWS: HISTORY: Pain. The lungs are clear. The heart is normal in size. The pulmonary vasculature is normal in appearance. There are old fractures of the left 3rd through 5th ribs. IMPRESSION: No acute disease. Signed by Moise Gustafson MD 06/29/2017 12:41 P
[2017-09-05] MEDS ORDERED: POTA1TAB23 PO (12:17)
[2017-09-05] MEDS ORDERED: HYDR1CRE TOP (16:20)
[2017-09-05] MEDS ORDERED: PRED20TA PO (16:20)
[2017-09-05] MEDS ORDERED: AUGM875T28 PO (16:20)
== END 2017-06-29 12:13 | disposition home or self-care (01) ==
LOC: M ED 09:53
DX: S29.011A Strain of muscle and tendon of front wall of thorax, initial encounter (principal); X50.9XXA Other and unspecified overexertion or strenuous movements or postures, initial encounter; Y92.019 Unspecified place in single-family (private) house as the place of occurrence of the external cause; Y93.89 Activity, other specified; Y99.8 Other external cause status; I10 Essential (primary) hypertension; E78.9 Disorder of lipoprotein metabolism, unspecified; K21.9 Gastro-esophageal reflux disease without esophagitis; J44.9 Chronic obstructive pulmonary disease, unspecified; Z88.1 Allergy status to other antibiotic agents; Z79.899 Other long term (current) drug therapy; Z87.891 Personal history of nicotine dependence

== ENCOUNTER 2017-10-14 07:30 | Emergency (ER) | payer OTHER ==
[~2017-10-14] VITALS: Ht 167.6 cm; Wt 84.5 kg
[~2017-10-14 07:30] MED LIST changes: +AUGM875T28 PO; +HYDR1CRE TOP; +NORCOTAB PO; +POTA1TAB23 PO
[2017-10-14] MEDS ORDERED: CART240C3 (07:43)
[2017-10-14] MEDS ORDERED: methylPREDNISolone INJ 125 MG/2 ML VIAL (J2930) IV ONE (08:15)
[2017-10-14] MEDS: IPRATROPIUM 0.5MG/ALBUTEROL 2.5MG INH SOL UD 3ML (DUONEB)(J7620) NEB PRN ×3 (08:22→08:30)
[2017-10-14 08:26] LABS: BASO # 0.1 10^3/uL (0.0-0.2); BASO % 0.7 % (0.0-1.0); EOS # 1.6 10^3/uL (0.0-0.50); EOS % 11.1 % (0.0-3.0); IMMATURE GRANULOCYTE % 0.3 % (0-0); MEAN CORPUSCULAR HEMOGLOBIN 27.9 pg (27.0-33.0); MEAN CORPUSCULAR HGB CONC 31.8 g/dl (32.0-36.5); MEAN CORPUSCULAR VOLUME 87.7 fl (80.0-96.0); MONO # 1.1 10^3/uL (0.0-0.8); MONO % 7.4 % (0.0-5.0); NEUTROPHILS # 10.9 10^3/uL (1.8-7.7); NEUTROPHILS % 73.5 % (36.0-66.0); PLATELET COUNT, AUTOMATED 363 10^3/uL (150-450); RED CELL DISTRIBUTION WIDTH 15.5 % (11.5-14.5); WHITE BLOOD COUNT 14.8 10^3/uL (4.0-10.0)
--- NOTE | 2017-10-14 09:56 | REP ---
PORTABLE CHEST: AP portable view of the chest is performed and compared to a prior study of 09/05/2017. There is no evidence of acute infiltrate. There is mild bibasilar fibrotic change. The heart is normal in size. The mediastinal silhouette is unchanged. IMPRESSION: No acute infiltrate. Signed by Martinez Thomas MD 10/15/2017 09:06 A
[2017-10-14 10:02] LABS: CALCIUM LEVEL 9.9 MG/DL (8.8-10.2); CREATININE FOR GFR 1.08 MG/DL (0.55-1.02); GLOMERULAR FILTRATION RATE 54.5 (>45)
[2017-10-14] MEDS: IPRATROPIUM 0.5MG/ALBUTEROL 2.5MG INH SOL UD 3ML (DUONEB)(J7620) NEB SCH ×3 (10:12→11:07)
[2017-10-14 11:11] VITALS: O2SAT 92
[2017-10-14 11:30] VITALS: BP 158/79
[2017-10-14] MEDS ORDERED: PRED20TA PO (11:40)
[2017-10-14] MEDS ORDERED: LEVA1TAB2 PO (11:40)
--- NOTE | 2017-10-15 04:33 | ECGEPIP ---
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
== END 2017-10-14 11:47 | disposition home or self-care (01) ==
LOC: M ED 07:30
DX: J44.1 Chronic obstructive pulmonary disease with (acute) exacerbation (principal); D50.9 Iron deficiency anemia, unspecified; I48.91 Unspecified atrial fibrillation; I50.9 Heart failure, unspecified; I11.0 Hypertensive heart disease with heart failure; Z79.899 Other long term (current) drug therapy; Z88.1 Allergy status to other antibiotic agents; Z87.891 Personal history of nicotine dependence
CPT/HCPCS: 71010; 80048; 82550; 82553; 83605; 83880; 85025; 87040; 93005; 93041; 94640; 94760; 96374; 99285; J2930

== ENCOUNTER 2017-11-05 23:23 | Inpatient (IN) | payer OTHER ==
[~2017-11-05 23:23] MED LIST changes: -/ADVA50050 INH; -/MOXI40TA OR; -/PANT40TA OR; -/TIOT18INH INH; -ACET65TA OR; -ALBU17IN INH; -ALBU83IN INH; -AMLO10TA OR; -ATOR1TAB21 PO; -AUGM875T28 PO; -BACI500O8 TOP; -CALC600T31 PO; -CALCTAB93 PO; -CARD240C5 PO; -COLA100C5 PO; -DIGO0.25 PO; -DIOV40TA PO; -ELIQ5TAB PO; -FERR1TAB8 PO; -FURO40TA2 PO; -HYDR-727 PO; -HYDR1CRE TOP; -IPRASOL4 NEB; -KEFL500C17 PO; +MAG SULF 1GM/100ML (MAG RUN) 1 GM in APPROPRIATE DILUENT 1 EA IV; -MUCI600T37 PO; -NASONEX; -NORCOTAB PO; -OCEAN NASAL SPRAY; -POTA1TAB23 PO; -PRAV40TA PO; -PRED10TA PO; -PRED10TA2 FT; -PRED10TA2 OR; -PRED20TA PO; -PRED5TAB OR; -PREDPOW10 PO; -SYMB16INH INH; -TUMS500C OR; -VENTAER INH; -VICO5TAB OR
[2017-11-05] MEDS: dexameTHASONE 20 MG/5 ML VIAL (J1100) IV (23:45)
[2017-11-05] MEDS: MAG SULF 1GM/100ML (MAG RUN) 1 GM in APPROPRIATE DILUENT 1 EA IV (23:45)
[2017-11-05 23:57] LABS: BASO # 0.1 10^3/uL (0.0-0.2); BASO % 0.6 % (0.0-1.0); EOS # 1.2 10^3/uL (0.0-0.50); EOS % 12.1 % (0.0-3.0); HEMATOCRIT 41.1 % (36.0-47.0); HEMOGLOBIN 12.9 g/dl (12.0-16.0); IMMATURE GRANULOCYTE % 0.2 % (0-0); LYMPH # 0.9 10^3/uL (1.5-4.5); LYMPH % 9.8 % (24.0-44.0); MEAN CORPUSCULAR HGB CONC 31.4 g/dl (32.0-36.5); MEAN CORPUSCULAR VOLUME 89.2 fl (80.0-96.0); MONO # 0.6 10^3/uL (0.0-0.8); MONO % 6.7 % (0.0-5.0); NEUTROPHILS # 6.8 10^3/uL (1.8-7.7); NEUTROPHILS % 70.6 % (36.0-66.0); PLATELET COUNT, AUTOMATED 271 10^3/uL (150-450); RED BLOOD COUNT 4.61 10^6/uL (4.00-5.40); RED CELL DISTRIBUTION WIDTH 16.7 % (11.5-14.5); WHITE BLOOD COUNT 9.6 10^3/uL (4.0-10.0)
[2017-11-06] MEDS: METOCLOPRAMIDE INJ 10MG/2ML VIAL (J2765) IV
[2017-11-06] MEDS: ACETAMINOPHEN 325 MG TAB PO
[2017-11-06 00:09] LABS: INR 0.94; PARTIAL THROMBOPLASTIN TIME 27.4 SECONDS (26.8-37.9); PROTHROMBIN TIME 12.7 SECONDS (12.4-14.5)
[2017-11-06] MEDS: ALBUTEROL SULFATE 2.5 MG/0.5 ML INH NEB SOLN INH (00:20)
[2017-11-06 00:24] LABS: ABG BASE EXCESS -4.4 (-2.0-2.0); ABG HCO3 22.5 MEQ/L (22.0-26.0); ABG O2 SATURATION 97.1 % (95.0-99.0); ABG PARTIAL PRESSURE CO2 48.7 mmHg (35.0-45.0); ABG PARTIAL PRESSURE O2 99.3 mmHg (75.0-100.0); ABG STANDARD HCO3 20.8 MEQ/L (22.0-26.0); ABG pH (ARTERIAL) 7.282 UNITS (7.350-7.450)
[2017-11-06 00:24] LABS: LACTIC ACID SEPSIS PROTOCOL 0.6 MMOL/L (0.4-2.0)
[2017-11-06 00:25] LABS: ANION GAP 8 MEQ/L (8-16); BLOOD UREA NITROGEN 12 MG/DL (7-18); CALCIUM LEVEL 9.4 MG/DL (8.8-10.2); CARBON DIOXIDE LEVEL 25 MEQ/L (21-32); CHLORIDE LEVEL 107 MEQ/L (98-107); CPK CREATINE PHOSPHOKINASE 88 U/L (26-192); CREATININE FOR GFR 0.84 MG/DL (0.55-1.02); GLOMERULAR FILTRATION RATE > 60.0 (>45); GLUCOSE, FASTING 122 MG/DL (80-110); POTASSIUM SERUM 4.5 MEQ/L (3.5-5.1); SODIUM LEVEL 140 MEQ/L (136-145); TROPONIN I < 0.02 NG/ML (< 0.10)
[2017-11-06 00:26] LABS: CK-MB VALUE MASS 4.1 NG/ML (0.0-3.6); MB/CK RELATIVE INDEX 4.65 (< OR =4)
[2017-11-06] MEDS: MAG SULF 1GM/100ML (MAG RUN) 1 GM in APPROPRIATE DILUENT 1 EA IV ×2 (00:45→01:45)
[2017-11-06] MEDS ORDERED: IPRATROPIUM 0.5MG/ALBUTEROL 2.5MG INH SOL UD 3ML (DUONEB)(J7620) NEB (03:00)
[2017-11-06] MEDS ORDERED: HYDROCORTISONE 1% CREAM 30 GM TOP (03:00)
[2017-11-06] MEDS: LevoFLOXacin IV 750 MG in APPROPRIATE DILUENT 1 EA IV (03:40)
[2017-11-06] MEDS: methylPREDNISolone INJ 125 MG/2 ML VIAL (J2930) IV ×3 (05:19→21:06)
[2017-11-06 06:53] LABS: HEMOGLOBIN 12.2 g/dl (12.0-16.0); MEAN CORPUSCULAR HGB CONC 32.1 g/dl (32.0-36.5); MEAN CORPUSCULAR VOLUME 87.2 fl (80.0-96.0); PLATELET COUNT, AUTOMATED 247 10^3/uL (150-450); RED BLOOD COUNT 4.36 10^6/uL (4.00-5.40); RED CELL DISTRIBUTION WIDTH 16.4 % (11.5-14.5); WHITE BLOOD COUNT 7.4 10^3/uL (4.0-10.0)
[2017-11-06 07:26] LABS: ANION GAP 8 MEQ/L (8-16); BLOOD UREA NITROGEN 16 MG/DL (7-18); CALCIUM LEVEL 9.1 MG/DL (8.8-10.2); CARBON DIOXIDE LEVEL 27 MEQ/L (21-32); CHLORIDE LEVEL 105 MEQ/L (98-107); CREATININE FOR GFR 1.07 MG/DL (0.55-1.02); GLOMERULAR FILTRATION RATE 55.1 (>45); GLUCOSE, FASTING 146 MG/DL (80-110); POTASSIUM SERUM 3.9 MEQ/L (3.5-5.1); SODIUM LEVEL 140 MEQ/L (136-145)
[2017-11-06] MEDS: IPRATROPIUM 0.5MG/ALBUTEROL 2.5MG INH SOL UD 3ML (DUONEB)(J7620) NEB ×5 (07:39→23:45)
[2017-11-06] MEDS: ENOXAPARIN 40 MG/0.4 ML SYRINGE (J1650) SC (08:36)
[2017-11-06] MEDS: FUROSEMIDE 40 MG TAB PO ×2 (08:36→21:05)
[2017-11-06] MEDS: SPIRONOLACTONE 12.5MG PER 1/2 TABLET PO (08:36)
[2017-11-07] MEDS: LevoFLOXacin IV 750 MG in APPROPRIATE DILUENT 1 EA IV (04:46)
[2017-11-07 06:20] LABS: HEMATOCRIT 37.8 % (36.0-47.0); HEMOGLOBIN 12.1 g/dl (12.0-16.0); MEAN CORPUSCULAR VOLUME 87.5 fl (80.0-96.0); PLATELET COUNT, AUTOMATED 283 10^3/uL (150-450); RED BLOOD COUNT 4.32 10^6/uL (4.00-5.40); RED CELL DISTRIBUTION WIDTH 17.2 % (11.5-14.5); WHITE BLOOD COUNT 15.6 10^3/uL (4.0-10.0)
[2017-11-07 06:32] LABS: ANION GAP 9 MEQ/L (8-16); BLOOD UREA NITROGEN 22 MG/DL (7-18); CALCIUM LEVEL 9.3 MG/DL (8.8-10.2); CARBON DIOXIDE LEVEL 26 MEQ/L (21-32); CHLORIDE LEVEL 104 MEQ/L (98-107); CREATININE FOR GFR 1.05 MG/DL (0.55-1.02); GLOMERULAR FILTRATION RATE 56.3 (>45); GLUCOSE, FASTING 153 MG/DL (80-110); POTASSIUM SERUM 3.8 MEQ/L (3.5-5.1); SODIUM LEVEL 139 MEQ/L (136-145)
[2017-11-07] MEDS: methylPREDNISolone INJ 125 MG/2 ML VIAL (J2930) IV (06:39)
[2017-11-07] MEDS: IPRATROPIUM 0.5MG/ALBUTEROL 2.5MG INH SOL UD 3ML (DUONEB)(J7620) NEB ×4 (07:43→21:19)
[2017-11-07] MEDS: FUROSEMIDE 40 MG TAB PO ×2 (09:00→20:15)
[2017-11-07] MEDS: ENOXAPARIN 40 MG/0.4 ML SYRINGE (J1650) SC (09:00)
[2017-11-07] MEDS: SPIRONOLACTONE 12.5MG PER 1/2 TABLET PO (11:09)
[2017-11-07] MEDS: predniSONE 20 MG TAB PO ×2 (11:10→20:15)
[2017-11-08] MEDS: IPRATROPIUM 0.5MG/ALBUTEROL 2.5MG INH SOL UD 3ML (DUONEB)(J7620) NEB ×3 (00:05→07:40)
[2017-11-08] MEDS: LevoFLOXacin 750 MG TABLET PO (05:40)
[2017-11-08 06:16] LABS: HEMATOCRIT 36.8 % (36.0-47.0); HEMOGLOBIN 11.9 g/dl (12.0-16.0); MEAN CORPUSCULAR HEMOGLOBIN 28.4 pg (27.0-33.0); MEAN CORPUSCULAR HGB CONC 32.3 g/dl (32.0-36.5); MEAN CORPUSCULAR VOLUME 87.8 fl (80.0-96.0); PLATELET COUNT, AUTOMATED 292 10^3/uL (150-450); RED BLOOD COUNT 4.19 10^6/uL (4.00-5.40); RED CELL DISTRIBUTION WIDTH 17.2 % (11.5-14.5); WHITE BLOOD COUNT 13.4 10^3/uL (4.0-10.0)
[2017-11-08 06:36] LABS: ANION GAP 9 MEQ/L (8-16); BLOOD UREA NITROGEN 31 MG/DL (7-18); CALCIUM LEVEL 9.4 MG/DL (8.8-10.2); CARBON DIOXIDE LEVEL 29 MEQ/L (21-32); CHLORIDE LEVEL 104 MEQ/L (98-107); CREATININE FOR GFR 1.14 MG/DL (0.55-1.02); GLOMERULAR FILTRATION RATE 51.2 (>45); GLUCOSE, FASTING 122 MG/DL (80-110); POTASSIUM SERUM 4.3 MEQ/L (3.5-5.1); SODIUM LEVEL 142 MEQ/L (136-145)
[2017-11-08] MEDS: predniSONE 20 MG TAB PO (08:55)
[2017-11-08] MEDS: FUROSEMIDE 40 MG TAB PO (08:56)
[2017-11-08] MEDS: SPIRONOLACTONE 12.5MG PER 1/2 TABLET PO (08:56)
[2017-11-08] MEDS: ENOXAPARIN 40 MG/0.4 ML SYRINGE (J1650) SC (08:58)
== END 2017-11-08 11:30 | disposition home or self-care (01) | DRG 140 ==
LOC: M ED 23:23 → M ED INP 11-06 02:08 → M MSPAV 11-06 16:38
DX: J44.1 Chronic obstructive pulmonary disease with (acute) exacerbation (principal); J96.02 Acute respiratory failure with hypercapnia; I50.32 Chronic diastolic (congestive) heart failure; I11.0 Hypertensive heart disease with heart failure; E78.00 Pure hypercholesterolemia, unspecified; D64.9 Anemia, unspecified; Z91.14 Patient's other noncompliance with medication regimen; Z79.899 Other long term (current) drug therapy; Z88.1 Allergy status to other antibiotic agents; Z87.891 Personal history of nicotine dependence

== ENCOUNTER 2017-12-16 10:36 | Inpatient (IN) | payer OTHER ==
[2017-12-16] MEDS: IPRATROPIUM 0.5MG/ALBUTEROL 2.5MG INH SOL UD 3ML (DUONEB)(J7620) NEB ×3 (11:19→21:57)
[2017-12-16] MEDS: methylPREDNISolone INJ 125 MG/2 ML VIAL (J2930) IV ×2 (11:19→18:30)
[2017-12-16] MEDS: NS 1,000 ML IV (11:19)
[2017-12-16 11:23] LABS: BASO # 0.1 10^3/uL (0.0-0.2); BASO % 0.8 % (0.0-1.0); EOS # 1.6 10^3/uL (0.0-0.50); EOS % 9.4 % (0.0-3.0); HEMATOCRIT 44.8 % (36.0-47.0); HEMOGLOBIN 14.4 g/dl (12.0-16.0); IMMATURE GRANULOCYTE % 0.7 % (0-3.0); LYMPH # 1.4 10^3/uL (1.5-4.5); MEAN CORPUSCULAR HEMOGLOBIN 28.5 pg (27.0-33.0); MEAN CORPUSCULAR HGB CONC 32.1 g/dl (32.0-36.5); MEAN CORPUSCULAR VOLUME 88.7 fl (80.0-96.0); MONO # 1.2 10^3/uL (0.0-0.8); MONO % 7.1 % (0.0-5.0); NEUTROPHILS # 12.7 10^3/uL (1.8-7.7); PLATELET COUNT, AUTOMATED 415 10^3/uL (150-450); RED BLOOD COUNT 5.05 10^6/uL (4.00-5.40); RED CELL DISTRIBUTION WIDTH 15.9 % (11.5-14.5); WHITE BLOOD COUNT 17.1 10^3/uL (4.0-10.0)
[2017-12-16 11:48] LABS: ANION GAP 9 MEQ/L (8-16); BLOOD UREA NITROGEN 14 MG/DL (7-18); CALCIUM LEVEL 10.1 MG/DL (8.8-10.2); CARBON DIOXIDE LEVEL 29 MEQ/L (21-32); CHLORIDE LEVEL 99 MEQ/L (98-107); CREATININE FOR GFR 1.33 MG/DL (0.55-1.30); GLOMERULAR FILTRATION RATE 42.9 (>45); GLUCOSE, FASTING 117 MG/DL (70-100); POTASSIUM SERUM 3.4 MEQ/L (3.5-5.1); SODIUM LEVEL 137 MEQ/L (136-145)
[2017-12-16 11:52] LABS: ALBUMIN 3.7 GM/DL (3.2-5.2); ALBUMIN/GLOBULIN RATIO 1.06 (1.00-1.93); ALKALINE PHOSPHATASE 92 U/L (45-117); ALT/SGPT 21 U/L (12-78); AST/SGOT 18 U/L (7-37); BILIRUBIN,DIRECT < 0.1 MG/DL (0.0-0.2); BILIRUBIN,TOTAL 0.3 MG/DL (0.2-1.0); TOTAL PROTEIN 7.2 GM/DL (6.4-8.2)
[2017-12-16] MEDS: ALBUTEROL SULFATE 2.5 MG/0.5 ML INH NEB SOLN NEB ×3 (11:52→12:44)
[2017-12-16] MEDS ORDERED: ACETAMINOPHEN TAB 650MG DOSE (2X325MG) PO (14:00)
[2017-12-16 14:01] LABS: C REACTIVE PROTEIN QUANTITATIV 3.76 MG/DL (0.00-0.30)
[2017-12-16] MEDS: POTASSIUM CHLORIDE 10 MEQ SR TABLET PO (14:02)
[2017-12-16] MEDS ORDERED: MOXIFLOXACIN HCL 400 MG in APPROPRIATE DILUENT 1 EA IV (16:00)
[2017-12-16] MEDS: MOXIFLOXACIN HCL 400 MG in APPROPRIATE DILUENT 1 EA IV (18:30)
[2017-12-16 19:02] LABS: ANION GAP 10 MEQ/L (8-16); BLOOD UREA NITROGEN 15 MG/DL (7-18); CALCIUM LEVEL 9.7 MG/DL (8.8-10.2); CARBON DIOXIDE LEVEL 26 MEQ/L (21-32); CHLORIDE LEVEL 104 MEQ/L (98-107); CK-MB VALUE MASS 3.8 NG/ML (0.0-3.6); CPK CREATINE PHOSPHOKINASE 76 U/L (26-192); CREATININE FOR GFR 1.29 MG/DL (0.55-1.30); GLOMERULAR FILTRATION RATE 44.4 (>45); GLUCOSE, FASTING 149 MG/DL (70-100); POTASSIUM SERUM 4.2 MEQ/L (3.5-5.1); SODIUM LEVEL 140 MEQ/L (136-145); TROPONIN I < 0.02 NG/ML (< 0.10)
[2017-12-16] MEDS: ADVAIR HFA 230/21MCG INHALER INH (21:00)
[2017-12-17] MEDS: IPRATROPIUM 0.5MG/ALBUTEROL 2.5MG INH SOL UD 3ML (DUONEB)(J7620) NEB ×7 (01:26→21:53)
[2017-12-17] MEDS: guaiFENesin ER 600 MG TAB PO ×3 (01:45→20:10)
[2017-12-17 02:22] LABS: CK-MB VALUE MASS 4.6 NG/ML (0.0-3.6); CPK CREATINE PHOSPHOKINASE 82 U/L (26-192); TROPONIN I < 0.02 NG/ML (< 0.10)
[2017-12-17] MEDS: methylPREDNISolone INJ 125 MG/2 ML VIAL (J2930) IV ×3 (03:07→18:04)
[2017-12-17 06:21] LABS: BASO % 0.2 % (0.0-1.0); HEMATOCRIT 37.6 % (36.0-47.0); IMMATURE GRANULOCYTE % 2.1 % (0-3.0); LYMPH # 0.8 10^3/uL (1.5-4.5); LYMPH % 4.1 % (24.0-44.0); MEAN CORPUSCULAR HEMOGLOBIN 28.6 pg (27.0-33.0); MEAN CORPUSCULAR HGB CONC 32.4 g/dl (32.0-36.5); MEAN CORPUSCULAR VOLUME 88.3 fl (80.0-96.0); MONO # 0.2 10^3/uL (0.0-0.8); MONO % 1.2 % (0.0-5.0); NEUTROPHILS # 17.1 10^3/uL (1.8-7.7); NEUTROPHILS % 92.4 % (36.0-66.0); PLATELET COUNT, AUTOMATED 332 10^3/uL (150-450); RED BLOOD COUNT 4.26 10^6/uL (4.00-5.40); WHITE BLOOD COUNT 18.5 10^3/uL (4.0-10.0)
[2017-12-17 06:24] LABS: HEMOGLOBIN 12.2 g/dl (12.0-16.0)
[2017-12-17 06:41] LABS: ALBUMIN 3.3 GM/DL (3.2-5.2); ALBUMIN/GLOBULIN RATIO 0.94 (1.00-1.93); ALKALINE PHOSPHATASE 71 U/L (45-117); ALT/SGPT 18 U/L (12-78); ANION GAP 9 MEQ/L (8-16); AST/SGOT 10 U/L (7-37); BILIRUBIN,TOTAL 0.2 MG/DL (0.2-1.0); BLOOD UREA NITROGEN 15 MG/DL (7-18); CARBON DIOXIDE LEVEL 25 MEQ/L (21-32); CHLORIDE LEVEL 106 MEQ/L (98-107); CREATININE FOR GFR 1.02 MG/DL (0.55-1.30); GLOMERULAR FILTRATION RATE 58.3 (>45); GLUCOSE, FASTING 162 MG/DL (70-100); MAGNESIUM LEVEL 2.2 MG/DL (1.8-2.4); POTASSIUM SERUM 3.9 MEQ/L (3.5-5.1); SODIUM LEVEL 140 MEQ/L (136-145); TOTAL PROTEIN 6.8 GM/DL (6.4-8.2)
[2017-12-17] MEDS: ADVAIR HFA 230/21MCG INHALER INH ×2 (08:13→21:49)
[2017-12-17] MEDS: OMEPRAZOLE 20 MG CAP PO (10:00)
[2017-12-17] MEDS: ENOXAPARIN 40 MG/0.4 ML SYRINGE (J1650) SC (10:00)
[2017-12-17 10:53] LABS: CK-MB VALUE MASS 3.6 NG/ML (0.0-3.6); CPK CREATINE PHOSPHOKINASE 59 U/L (26-192); TROPONIN I < 0.02 NG/ML (< 0.10)
[2017-12-17] MEDS ORDERED: IBUPROFEN 800 MG TAB PO (14:15)
[2017-12-17] MEDS: SPIRONOLACTONE 12.5MG PER 1/2 TABLET PO (15:27)
[2017-12-17] MEDS: VITAMIN D 1,000 INTERNATIONAL UNITS TABLET PO (15:27)
[2017-12-17] MEDS: MOXIFLOXACIN HCL 400 MG in APPROPRIATE DILUENT 1 EA IV (18:04)
[2017-12-17] MEDS: POTASSIUM CHLORIDE 10 MEQ SR TABLET PO (20:09)
[2017-12-17] MEDS: FUROSEMIDE 40 MG TAB PO (20:10)
[2017-12-18] MEDS: IPRATROPIUM 0.5MG/ALBUTEROL 2.5MG INH SOL UD 3ML (DUONEB)(J7620) NEB ×2 (00:16→07:55)
[2017-12-18] MEDS: methylPREDNISolone INJ 125 MG/2 ML VIAL (J2930) IV (03:18)
[2017-12-18 06:13] LABS: BASO % 0.1 % (0.0-1.0); HEMATOCRIT 36.1 % (36.0-47.0); HEMOGLOBIN 11.8 g/dl (12.0-16.0); IMMATURE GRANULOCYTE % 2.5 % (0-3.0); LYMPH # 0.7 10^3/uL (1.5-4.5); LYMPH % 3.2 % (24.0-44.0); MEAN CORPUSCULAR HEMOGLOBIN 29.1 pg (27.0-33.0); MEAN CORPUSCULAR HGB CONC 32.7 g/dl (32.0-36.5); MEAN CORPUSCULAR VOLUME 88.9 fl (80.0-96.0); MONO # 0.6 10^3/uL (0.0-0.8); MONO % 2.4 % (0.0-5.0); NEUTROPHILS % 91.8 % (36.0-66.0); PLATELET COUNT, AUTOMATED 304 10^3/uL (150-450); RED BLOOD COUNT 4.06 10^6/uL (4.00-5.40); RED CELL DISTRIBUTION WIDTH 16.5 % (11.5-14.5); WHITE BLOOD COUNT 22.9 10^3/uL (4.0-10.0)
[2017-12-18 06:39] LABS: ALBUMIN 3.2 GM/DL (3.2-5.2); ALBUMIN/GLOBULIN RATIO 0.97 (1.00-1.93); ALKALINE PHOSPHATASE 62 U/L (45-117); ALT/SGPT 16 U/L (12-78); ANION GAP 9 MEQ/L (8-16); AST/SGOT 7 U/L (7-37); BILIRUBIN,TOTAL 0.1 MG/DL (0.2-1.0); BLOOD UREA NITROGEN 25 MG/DL (7-18); CALCIUM LEVEL 9.6 MG/DL (8.8-10.2); CARBON DIOXIDE LEVEL 26 MEQ/L (21-32); CHLORIDE LEVEL 106 MEQ/L (98-107); CREATININE FOR GFR 1.21 MG/DL (0.55-1.30); GLOMERULAR FILTRATION RATE 47.8 (>45); GLUCOSE, FASTING 147 MG/DL (70-100); MAGNESIUM LEVEL 2.2 MG/DL (1.8-2.4); POTASSIUM SERUM 4.2 MEQ/L (3.5-5.1); SODIUM LEVEL 141 MEQ/L (136-145); TOTAL PROTEIN 6.5 GM/DL (6.4-8.2)
[2017-12-18] MEDS: ADVAIR HFA 230/21MCG INHALER INH ×2 (07:55→20:10)
[2017-12-18] MEDS: POTASSIUM CHLORIDE 10 MEQ SR TABLET PO ×2 (08:30→21:20)
[2017-12-18] MEDS: FUROSEMIDE 40 MG TAB PO ×2 (08:30→21:19)
[2017-12-18] MEDS: SPIRONOLACTONE 12.5MG PER 1/2 TABLET PO (08:30)
[2017-12-18] MEDS: ENOXAPARIN 40 MG/0.4 ML SYRINGE (J1650) SC (08:31)
[2017-12-18] MEDS: guaiFENesin ER 600 MG TAB PO ×2 (08:31→21:19)
[2017-12-18] MEDS: VITAMIN D 1,000 INTERNATIONAL UNITS TABLET PO (08:31)
[2017-12-18] MEDS: OMEPRAZOLE 20 MG CAP PO (08:31)
[2017-12-18] MEDS ORDERED: methylPREDNISolone INJ 40 MG/1 ML VIAL (J2920) IV (11:00)
[2017-12-18] MEDS: ALBUTEROL SULFATE 2.5 MG/0.5 ML INH NEB SOLN NEB ×2 (12:38→20:00)
[2017-12-18] MEDS: predniSONE 20 MG TAB PO (15:57)
[2017-12-18] MEDS: MOXIFLOXACIN 400 MG TAB PO (15:57)
[2017-12-19] MEDS: ALBUTEROL SULFATE 2.5 MG/0.5 ML INH NEB SOLN NEB ×2 (01:43→10:21)
[2017-12-19] MEDS: MOXIFLOXACIN 400 MG TAB PO (05:35)
[2017-12-19 06:55] LABS: BASO # 0.1 10^3/uL (0.0-0.2); BASO % 0.2 % (0.0-1.0); HEMATOCRIT 40.2 % (36.0-47.0); HEMOGLOBIN 13.2 g/dl (12.0-16.0); IMMATURE GRANULOCYTE % 3.8 % (0-3.0); LYMPH # 1.5 10^3/uL (1.5-4.5); LYMPH % 6.7 % (24.0-44.0); MEAN CORPUSCULAR HEMOGLOBIN 28.8 pg (27.0-33.0); MEAN CORPUSCULAR HGB CONC 32.8 g/dl (32.0-36.5); MEAN CORPUSCULAR VOLUME 87.6 fl (80.0-96.0); MONO # 1.4 10^3/uL (0.0-0.8); MONO % 6.5 % (0.0-5.0); NEUTROPHILS # 18.2 10^3/uL (1.8-7.7); NEUTROPHILS % 82.8 % (36.0-66.0); PLATELET COUNT, AUTOMATED 373 10^3/uL (150-450); RED BLOOD COUNT 4.59 10^6/uL (4.00-5.40); RED CELL DISTRIBUTION WIDTH 16.6 % (11.5-14.5); WHITE BLOOD COUNT 21.9 10^3/uL (4.0-10.0)
[2017-12-19 07:22] LABS: ALBUMIN 3.4 GM/DL (3.2-5.2); ALBUMIN/GLOBULIN RATIO 0.97 (1.00-1.93); ALKALINE PHOSPHATASE 62 U/L (45-117); ALT/SGPT 18 U/L (12-78); ANION GAP 10 MEQ/L (8-16); AST/SGOT 7 U/L (7-37); BILIRUBIN,TOTAL 0.2 MG/DL (0.2-1.0); BLOOD UREA NITROGEN 30 MG/DL (7-18); CALCIUM LEVEL 9.1 MG/DL (8.8-10.2); CARBON DIOXIDE LEVEL 29 MEQ/L (21-32); CHLORIDE LEVEL 105 MEQ/L (98-107); CREATININE FOR GFR 1.15 MG/DL (0.55-1.30); GLOMERULAR FILTRATION RATE 50.7 (>45); GLUCOSE, FASTING 98 MG/DL (70-100); MAGNESIUM LEVEL 2.3 MG/DL (1.8-2.4); POTASSIUM SERUM 3.7 MEQ/L (3.5-5.1); SODIUM LEVEL 144 MEQ/L (136-145); TOTAL PROTEIN 6.9 GM/DL (6.4-8.2)
[2017-12-19] MEDS: ADVAIR HFA 230/21MCG INHALER INH (09:00)
[2017-12-19] MEDS: guaiFENesin ER 600 MG TAB PO (09:03)
[2017-12-19] MEDS: ENOXAPARIN 40 MG/0.4 ML SYRINGE (J1650) SC (09:03)
[2017-12-19] MEDS: POTASSIUM CHLORIDE 10 MEQ SR TABLET PO (09:04)
[2017-12-19] MEDS: VITAMIN D 1,000 INTERNATIONAL UNITS TABLET PO (09:04)
[2017-12-19] MEDS: OMEPRAZOLE 20 MG CAP PO (09:04)
[2017-12-19] MEDS: FUROSEMIDE 40 MG TAB PO (09:04)
[2017-12-19] MEDS: predniSONE 20 MG TAB PO (09:04)
[2017-12-19] MEDS: SPIRONOLACTONE 12.5MG PER 1/2 TABLET PO (09:04)
== END 2017-12-19 12:08 | disposition home or self-care (01) | DRG 140 ==
LOC: M ED 10:36 → M ED INP 14:37 → M MSPAV 16:18
DX: J44.1 Chronic obstructive pulmonary disease with (acute) exacerbation (principal); I13.0 Hypertensive heart and chronic kidney disease with heart failure and stage 1 through stage 4 chronic kidney disease, or unspecified chronic kidney disease; I50.32 Chronic diastolic (congestive) heart failure; D64.9 Anemia, unspecified; E78.00 Pure hypercholesterolemia, unspecified; N18.2 Chronic kidney disease, stage 2 (mild); E87.6 Hypokalemia; K21.9 Gastro-esophageal reflux disease without esophagitis; Z79.899 Other long term (current) drug therapy; Z87.891 Personal history of nicotine dependence; Z88.8 Allergy status to other drugs, medicaments and biological substances

== ENCOUNTER 2018-02-05 10:45 | Emergency (ER) | payer OTHER ==
[2018-02-05] MEDS: methylPREDNISolone INJ 125 MG/2 ML VIAL (J2930) IM (11:24)
[2018-02-05] MEDS: IPRATROPIUM 0.5MG/ALBUTEROL 2.5MG INH SOL UD 3ML (DUONEB)(J7620) NEB ×2 (11:59)
== END 2018-02-05 13:00 | disposition home or self-care (01) ==
LOC: M ED 10:45
DX: J44.1 Chronic obstructive pulmonary disease with (acute) exacerbation (principal); I50.9 Heart failure, unspecified; I11.0 Hypertensive heart disease with heart failure; J45.909 Unspecified asthma, uncomplicated; K21.9 Gastro-esophageal reflux disease without esophagitis; Z79.51 Long term (current) use of inhaled steroids; Z79.899 Other long term (current) drug therapy; Z88.1 Allergy status to other antibiotic agents; Z87.19 Personal history of other diseases of the digestive system; Z98.890 Other specified postprocedural states; Z87.891 Personal history of nicotine dependence
CPT/HCPCS: J2930

== ENCOUNTER 2018-05-02 12:36 | Emergency (ER) | payer OTHER ==
[2018-05-02] MEDS: methylPREDNISolone INJ 125 MG/2 ML VIAL (J2930) IM (14:23)
[2018-05-02] MEDS: IPRATROPIUM 0.5MG/ALBUTEROL 2.5MG INH SOL UD 3ML (DUONEB)(J7620) NEB (14:26)
== END 2018-05-02 15:07 | disposition home or self-care (01) ==
LOC: M ED 12:36
DX: J44.1 Chronic obstructive pulmonary disease with (acute) exacerbation (principal); I11.0 Hypertensive heart disease with heart failure; I50.9 Heart failure, unspecified; I48.91 Unspecified atrial fibrillation; K44.9 Diaphragmatic hernia without obstruction or gangrene; Z79.899 Other long term (current) drug therapy; Z79.51 Long term (current) use of inhaled steroids; Z88.1 Allergy status to other antibiotic agents; Z87.891 Personal history of nicotine dependence
CPT/HCPCS: J2930

== ENCOUNTER 2018-10-21 09:32 | Emergency (ER) | payer OTHER ==
[2018-10-21] MEDS: methylPREDNISolone INJ 125 MG/2 ML VIAL (J2930) IV (10:35)
[2018-10-21 10:38] LABS: BASO # 0.1 10^3/uL (0.0-0.2); BASO % 0.7 % (0.0-1.0); EOS % 10.3 % (0.0-3.0); HEMATOCRIT 39.4 % (36.0-47.0); HEMOGLOBIN 12.4 g/dl (12.0-15.5); IMMATURE GRANULOCYTE % 0.3 % (0-3.0); LYMPH # 1.1 10^3/uL (1.5-4.5); MEAN CORPUSCULAR HEMOGLOBIN 25.6 pg (27.0-33.0); MEAN CORPUSCULAR HGB CONC 31.5 g/dl (32.0-36.5); MEAN CORPUSCULAR VOLUME 81.4 fl (80.0-96.0); MONO # 0.7 10^3/uL (0.0-0.8); MONO % 7.8 % (0.0-5.0); NEUTROPHILS # 6.5 10^3/uL (1.8-7.7); NEUTROPHILS % 68.9 % (36.0-66.0); PLATELET COUNT, AUTOMATED 407 10^3/uL (150-450); RED BLOOD COUNT 4.84 10^6/uL (4.00-5.40); RED CELL DISTRIBUTION WIDTH 17.4 % (11.5-14.5); WHITE BLOOD COUNT 9.4 10^3/uL (4.0-10.0)
[2018-10-21 10:52] LABS: LACTIC ACID SEPSIS PROTOCOL 2.3 MMOL/L (0.4-2.0)
[2018-10-21] MEDS: IPRATROPIUM 0.5MG/ALBUTEROL 2.5MG INH SOL UD 3ML (DUONEB)(J7620) NEB ×3 (10:59→11:28)
[2018-10-21 11:14] LABS: ANION GAP 8 MEQ/L (8-16); BLOOD UREA NITROGEN 13 MG/DL (7-18); CALCIUM LEVEL 9.1 MG/DL (8.8-10.2); CARBON DIOXIDE LEVEL 31 MEQ/L (21-32); CHLORIDE LEVEL 97 MEQ/L (98-107); CPK CREATINE PHOSPHOKINASE 361 U/L (26-192); GLOMERULAR FILTRATION RATE 48.1 (>45); GLUCOSE, FASTING 110 MG/DL (70-100); MB/CK RELATIVE INDEX 0.61 (< OR =4); POTASSIUM SERUM 3.5 MEQ/L (3.5-5.1); SODIUM LEVEL 136 MEQ/L (136-145); TROPONIN I < 0.02 NG/ML (< 0.10)
[2018-10-21 11:23] LABS: INFLUENZA A AMPLIFICATION NEGATIVE (NEGATIVE); INFLUENZA B AMPLIFICATION NEGATIVE (NEGATIVE)
[2018-10-21 11:45] LABS: ABG BASE EXCESS 1.7 (-2.0-2.0); ABG HCO3 24.8 MEQ/L (22.0-26.0); ABG O2 SATURATION 93.7 % (95.0-99.0); ABG PARTIAL PRESSURE CO2 33.7 mmHg (35.0-45.0); ABG PARTIAL PRESSURE O2 68.8 mmHg (75.0-100.0); ABG STANDARD HCO3 25.9 MEQ/L (22.0-26.0); ABG TOTAL CO2 25.8 MEQ/L (23.0-31.0); ABG pH (ARTERIAL) 7.484 UNITS (7.350-7.450)
[2018-10-21] MEDS ORDERED: ISOVUE-370 76% 100ML VIAL (Q9967) As Ordered (12:01)
== END 2018-10-21 14:31 | disposition home or self-care (01) ==
LOC: M ED 09:32
DX: J44.1 Chronic obstructive pulmonary disease with (acute) exacerbation (principal); I48.91 Unspecified atrial fibrillation; I11.0 Hypertensive heart disease with heart failure; I50.9 Heart failure, unspecified; E78.5 Hyperlipidemia, unspecified; Z87.891 Personal history of nicotine dependence
CPT/HCPCS: Q9967

== ENCOUNTER → 2019-01-24 | Outpatient (REF) | payer OTHER ==
[~2019-01-24] MED LIST changes: +/ADVA50050 INH; +/MOXI40TA OR; +/PANT40TA OR; +/TIOT18INH INH; +ACET65TA OR; +ALB2.5NEB INH; +ALBU17IN INH; +ALBU83IN INH; +AMLO10TA OR; +AMLO5TAB6; +ATOR1TAB21 PO; +AUGM875T28 PO; +AVEL1TAB3 PO; +BACI500O8 TOP; +BREO1INH3 INH; +BUDE0.5S6 INH; +CALC600T31 PO; +CALCTAB93 PO; +CARD240C5 PO; +CART240C3; +CART240C3 PO; +COLA100C5 PO; +DIGO0.25 PO; +DIOV40TA PO; +DOXY100C37 PO; +ELIQ5TAB PO; +FERR1TAB8 PO; +FURO40TA2 PO; +HYDR-727 PO; +HYDR1CRE TOP; +HYDR1CRE89 PR; +IBUPOTC PO; +IPRA0.00 INH; +IPRA0.00 NEB; +KEFL500C17 PO; +LEVA1TAB2 PO; +LEVA750T7 PO; -MAG SULF 1GM/100ML (MAG RUN) 1 GM in APPROPRIATE DILUENT 1 EA IV; +MUCI600T37 PO; +NASONEX; +NORCOTAB PO; +OCEAN NASAL SPRAY; +OMEP20CA3 PO; +PERF20NE2 INH; +POTA1TAB23 PO; +PRAV40TA PO; +PRED10TA PO; +PRED10TA2 FT; +PRED10TA2 OR; +PRED10TA2 PO; +PRED20TA PO; +PRED5TAB OR; +PREDPOW10 PO; +PRIL20CA9 PO; +SPIR-10 PO; +SYMB16INH INH; +TUMS500C OR; +TYLE325T5 PO; +VENTAER INH; +VICO5TAB OR; +VITA-122 PO
[2019-01-24 17:40] LABS: NT-PRO BNP 297 PG/ML (<125)
[2019-01-24 18:29] LABS: HIV 1&2 SCREEN CENTAUR NEGATIVE (NEGATIVE)
[2019-01-26 10:32] LABS: HEPATITIS B SURFACE ANTIBODY POSITIVE (POSITIVE)
[2019-01-26 10:43] LABS: HEPATITIS B SURFACE ANTIGEN NEGATIVE (NEGATIVE)
[2019-01-26 11:12] LABS: HEPATITIS C VIRUS ABY INDEX 0.1 INDEX (<0.8)
== END ==
LOC: M SFHCPLAZ 14:30
PROVIDERS: ATTEND Dermatology
DX: Z79.899 Other long term (current) drug therapy (principal)

== ENCOUNTER → 2019-01-28 | Outpatient (CLI) | payer OTHER ==
[~2019-01-28] MED LIST changes: +AMLO5TAB6 PO; +ATEN25TA PO; +DIGO0.12 PO; +FLUO1SOL EXT; +KLOR10TA76 PO; +OTEZ1TAB3 PO; +TRIA1OI80 TOP
[2019-01-28 14:00] LABS: HEMATOCRIT 34.2 % (36.0-47.0); HEMOGLOBIN 10.2 g/dl (12.0-15.5); MEAN CORPUSCULAR HEMOGLOBIN 23.7 pg (27.0-33.0); MEAN CORPUSCULAR HGB CONC 29.8 g/dl (32.0-36.5); MEAN CORPUSCULAR VOLUME 79.4 fl (80.0-96.0); PLATELET COUNT, AUTOMATED 407 10^3/uL (150-450); RED BLOOD COUNT 4.31 10^6/uL (4.00-5.40); WHITE BLOOD COUNT 13.7 10^3/uL (4.0-10.0)
[2019-01-28 14:30] LABS: ALBUMIN 3.7 GM/DL (3.2-5.2); BILIRUBIN,TOTAL 0.3 MG/DL (0.2-1.0); CALCIUM LEVEL 9.5 MG/DL (8.8-10.2); CREATININE FOR GFR 1.4 MG/DL (0.55-1.30); GLOMERULAR FILTRATION RATE 40.3 (>45); POTASSIUM SERUM 4.4 MEQ/L (3.5-5.1); THYROID STIMULATING HORMONE 1.25 uIU/ML (0.358-3.740); THYROXINE (T4) 6.6 UG/DL (4.5-12.0)
== END ==
LOC: M LAB 12:59
PROVIDERS: ATTEND Physician Assistant
DX: I48.0 Paroxysmal atrial fibrillation (principal)

== ENCOUNTER 2019-02-01 01:23 | Inpatient (IN) | payer OTHER ==
[~2019-02-01] VITALS: Ht 167.6 cm; Wt 93.3 kg
[~2019-02-01 01:23] MED LIST changes: -/ADVA50050 INH; -/MOXI40TA OR; -/PANT40TA OR; -/TIOT18INH INH; +ADVA1AER2 INH; -AMLO5TAB6 PO; -ATEN25TA PO; +AVEL1TAB2 OR; -DIGO0.12 PO; -FLUO1SOL EXT; +HYDR-3715 PO; -KLOR10TA76 PO; -NORCOTAB PO; -OTEZ1TAB3 PO; +PRED-351 PO; -PRED10TA PO; +PROT1TAB2 OR; +SPIR1CAP INH; -TRIA1OI80 TOP
[2019-02-01] MEDS: IPRATROPIUM 0.5MG/ALBUTEROL 2.5MG INH SOL UD 3ML (DUONEB)(J7620) NEB PRN ×3 (02:02→03:29)
[2019-02-01 02:03] LABS: ABG BASE EXCESS -1.5 (-2.0-2.0); ABG HCO3 23.2 MEQ/L (22.0-26.0); ABG O2 SATURATION 98.2 % (95.0-99.0); ABG PARTIAL PRESSURE O2 107.3 mmHg (75.0-100.0); ABG STANDARD HCO3 23.3 MEQ/L (22.0-26.0); ABG TOTAL CO2 24.4 MEQ/L (23.0-31.0); ABG pH (ARTERIAL) 7.393 UNITS (7.350-7.450)
[2019-02-01 02:16] LABS: BASO # 0.1 10^3/uL (0.0-0.2); BASO % 0.7 % (0.0-1.0); EOS # 0.6 10^3/uL (0.0-0.50); EOS % 4.5 % (0.0-3.0); HEMOGLOBIN 9.5 g/dl (12.0-15.5); LYMPH # 0.7 10^3/uL (1.5-4.5); LYMPH % 5.6 % (24.0-44.0); MEAN CORPUSCULAR HEMOGLOBIN 23.6 pg (27.0-33.0); MEAN CORPUSCULAR HGB CONC 29.7 g/dl (32.0-36.5); MEAN CORPUSCULAR VOLUME 79.4 fl (80.0-96.0); MONO % 7.8 % (0.0-5.0); NEUTROPHILS # 9.9 10^3/uL (1.8-7.7); NEUTROPHILS % 80.9 % (36.0-66.0); PLATELET COUNT, AUTOMATED 318 10^3/uL (150-450); RED BLOOD COUNT 4.03 10^6/uL (4.00-5.40); WHITE BLOOD COUNT 12.2 10^3/uL (4.0-10.0)
[2019-02-01 02:55] LABS: INFLUENZA A AMPLIFICATION NEGATIVE (NEGATIVE); INFLUENZA B AMPLIFICATION NEGATIVE (NEGATIVE)
[2019-02-01 03:22] LABS: BLOOD UREA NITROGEN 13 MG/DL (7-18); CALCIUM LEVEL 8.9 MG/DL (8.8-10.2); CARBON DIOXIDE LEVEL 26 MEQ/L (21-32); CHLORIDE LEVEL 104 MEQ/L (98-107); CPK CREATINE PHOSPHOKINASE 60 U/L (26-192); CREATININE FOR GFR 1.02 MG/DL (0.55-1.30); DIGOXIN LEVEL 0.6 NG/ML (0.5-2.0); GLOMERULAR FILTRATION RATE 58.1 (>45); GLUCOSE, FASTING 99 MG/DL (70-100); NT-PRO BNP 407 PG/ML (<125); POTASSIUM SERUM 3.5 MEQ/L (3.5-5.1); SODIUM LEVEL 139 MEQ/L (136-145); TROPONIN I < 0.02 NG/ML (< 0.10)
[2019-02-01] MEDS ORDERED: ONDANSETRON 4MG/2ML VIAL (J2405) IV PRN (05:00)
[2019-02-01] MEDS ORDERED: ACETAMINOPHEN TAB 650MG DOSE (2X325MG) PO PRN (05:00)
[2019-02-01] MEDS ORDERED: ALBUTEROL SULFATE 2.5 MG/0.5 ML INH NEB SOLN NEB PRN (05:00)
[2019-02-01 05:07] LABS: INR 1.32; PROTHROMBIN TIME 16.6 SECONDS (12.1-14.4)
[2019-02-01 05:08] LABS: PARTIAL THROMBOPLASTIN TIME 31.4 SECONDS (25.4-37.6)
[2019-02-01] MEDS: AZITHROMYCIN INJ 500 MG, VIAL MATE ADAPTER 1 EACH in D5W 250 ML IV SCH (05:27)
[2019-02-01] MEDS: methylPREDNISolone INJ 40 MG/1 ML VIAL (J2920) IV SCH ×2 (05:27→16:29)
[2019-02-01] MEDS ORDERED: VENTAER INH (05:32)
[2019-02-01] MEDS ORDERED: OMEP20CA3 PO (05:32)
[2019-02-01] MEDS ORDERED: ELIQ5TAB PO (05:32)
[2019-02-01] MEDS ORDERED: AMLO5TAB6 PO (05:32)
[2019-02-01] MEDS ORDERED: KLOR10TA76 PO (05:32)
[2019-02-01] MEDS ORDERED: FLUO1SOL EXT (05:32)
[2019-02-01] MEDS ORDERED: SPIR-10 PO (05:32)
[2019-02-01] MEDS ORDERED: OTEZ1TAB3 PO (05:32)
[2019-02-01] MEDS ORDERED: SYMB16INH INH (05:32)
[2019-02-01] MEDS ORDERED: ATEN25TA PO (05:32)
[2019-02-01] MEDS ORDERED: TRIA1OI80 TOP (05:32)
[2019-02-01] MEDS ORDERED: FURO40TA2 PO (05:32)
[2019-02-01] MEDS ORDERED: IPRA0.00 INH (05:32)
[2019-02-01] MEDS ORDERED: DIGO0.12 PO (05:32)
[2019-02-01] MEDS ORDERED: OMEPRAZOLE 20 MG CAP PO PRN (05:45)
[2019-02-01] MEDS ORDERED: FLUOCINONIDE 0.05% CREAM 15 GM TOP PRN (05:45)
[2019-02-01] MEDS ORDERED: SYMBICORT 160/4.5MCG INHALER 6GM INH PRN (05:45)
[2019-02-01] MEDS ORDERED: TRIAMCINOLONE ACET 0.1% OINTMENT 80 GM TOP PRN (05:45)
[2019-02-01] MEDS: DOXYCYCLINE HYCLATE 100 MG in D5W MINI-BAG PLUS 100 ML IV SCH ×2 (06:00→17:19)
[2019-02-01] MEDS: IPRATROPIUM 0.5MG/ALBUTEROL 2.5MG INH SOL UD 3ML (DUONEB)(J7620) NEB SCH ×4 (07:05→20:00)
--- NOTE | 2019-02-01 08:21 | REP ---
Portable chest x-ray: Single view. History: Dyspnea and cough. Comparison study: October 21, 2018. Findings: Diaphragmatic hernia is again noted at the left base posteriorly behind the heart unchanged. The lungs are well inflated and otherwise clear. Pleural angles are sharp. Heart size is normal. Pulmonary vasculature is not increased. EKG monitoring electrodes overlie the chest. Impression: No acute disease. Electronically Signed by Surinder Tracy MD 02/01/2019 08:13 A
[2019-02-01] MEDS: FUROSEMIDE 40 MG TAB PO SCH ×2 (09:27→16:29)
[2019-02-01] MEDS: amLODIPine 5 MG TAB PO SCH (09:27)
[2019-02-01] MEDS: DIGOXIN 0.125 MG TAB PO SCH (09:27)
[2019-02-01] MEDS: ATENOLOL 25 MG TAB PO SCH (09:27)
[2019-02-01] MEDS: APIXABAN 5 MG TAB (ELIQUIS) PO SCH ×2 (09:28→21:03)
[2019-02-01] MEDS: VITAMIN D 1,000 INTERNATIONAL UNITS TABLET PO SCH (09:28)
[2019-02-01] MEDS: OMEPRAZOLE 20 MG CAP PO SCH (09:28)
[2019-02-01] MEDS: SPIRONOLACTONE 25 MG TAB PO SCH (09:28)
[2019-02-01] MEDS: POTASSIUM CHLORIDE 10 MEQ SR TABLET PO SCH ×2 (09:31→21:03)
--- NOTE | 2019-02-01 09:45 | ECGEPIP ---
Stationary ECG Study [facility] Test Date: 2019-02-01 Pat Name: PALAK MANJARREZ Department: Room: 0103 Gender: F Supervisor Product Inspection: TORIBIO : 1955 Requested By: RUSLAN THURSDAY Order Number: [id number] Reading MD: Zoë Pruitt Measurements Intervals [place] Rate: 94 P: 65 IL: 163 QRS: 55 QRSD: 98 T: 59 QT: 372 QTc: 465 Interpretive Statements SINUS RHYTHM Incomplete right bundle branch block RATE SLOWER C/W 10/21/18 Electronically Signed On 02-01-2019 9:44:59 EDT by Zoë Pruitt
[2019-02-01 11:40] VITALS: BP 145/75
[2019-02-01 14:00] VITALS: BP 134/66
[2019-02-01] MEDS ORDERED: GLUCAGON FOR INJ 1 MG VIAL (J1610) SC PRN (15:30)
[2019-02-01] MEDS ORDERED: GLUCOSE 4 GM CHEW TABLET PO PRN (15:30)
[2019-02-01] MEDS ORDERED: DEXTROSE 50% 50 ML SYRINGE IV PRN (15:30)
--- NOTE | 2019-02-01 16:44 | HPE ---
DATE OF ADMISSION: 02/01/2019 CHIEF COMPLAINT: Cough, wheezing, shortness of breath for the previous three and one-half days. HISTORY OF PRESENT ILLNESS (HPI): The patient is a 63-year-old female with a significant past medical history of atrial fibrillation (A-fib) on dig, atenolol, as well as Eliquis, chronic pulmonary obstructive disease (COPD), anemia diastolic congestive heart failure, hypertension, hyperlipidemia, chronic kidney disease (CKD) stage II, psoriasis. She presents to the emergency room with cough, wheezing, shortness of breath, subjective fevers and chills for 3-1/2 days. She tried to see her primer boxer Dr. Wong but was not able to do so. She denies any abdominal pain, constipation, diarrhea, urinary symptoms or any sick contacts. She started having more profound difficulty breathing over night, not responding to her nebulizers. PAST MEDICAL HISTORY: See HPI. PAST SURGICAL HISTORY: 1. Left ankle surgery. 2. Vein stripping. ALLERGIES: ERYTHROMYCIN. HOME MEDICATIONS: As per chart includes: - Tylenol - albuterol - Norvasc - Lasix - spironolactone - Eliquis - digoxin - potassium chloride - triamcinolone SOCIAL HISTORY: Former smoker, denies alcohol or illicit drug use. FAMILY HISTORY: Diabetes. REVIEW OF SYSTEMS: A 12-point review of systems was completed all of which were negative except those listed in the HPI. VITAL SIGNS ON ADMISSION: Temperature 98.5, initial pulse of 163, blood pressure 125/80, satting 91% on room air. After nebulizer treatments heart rate subsequently decreased to the 90s. PHYSICAL EXAMINATION: GENERAL: She is well nourished, in no apparent distress. HEAD: Normocephalic atraumatic. EYES: Extraocular movements are intact. Pupils equal, round, and reactive to light. NECK: Supple. No jugular venous distention. LUNGS: Rhonchus breath sounds, diffuse wheezing, no crackles. CARDIOVASCULAR: She is now in sinus, regular rate and rhythm, normal S1, S2, no murmurs, rubs, gallops. ABDOMEN: Soft, nontender, nondistended, positive bowel sounds, no rebound or guarding. EXTREMITIES: No pitting edema or calf tenderness. SKIN: Intact, no rashes, lesions or breakdown. NEUROLOGICAL: She is awake, alert and oriented times three, no focal deficits. LABORATORY DATA COMPLETED IN THE EMERGENCY ROOM: White count of 12, hemoglobin 9, hematocrit 32, platelet count 318. Blood gas: 7.3, 39, 107, 24, 98. Chemistries show BUN 13, creatinine 1.02, baseline lactate within normal limits. Initial troponins negative. BNP 407. Dig level is 0.6. Rapid flow is negative. Chest x-ray shows some mild reticular markings possibly small bilateral pleural effusions, unable to rule out a new consolidation. ASSESSMENT AND PLAN: 1. Chronic pulmonary obstructive disease exacerbation. This is likely secondary to upper respiratory infection. DuoNebs standing, albuterol as needed. Solu-Medrol 40 every 12. Check fingersticks while on Solu-Medrol. Doxycycline, oxygen as needed. Keep oxygen saturation between 89-92%. Exacerbation of atrial fibrillation with rapid ventricular response, likely secondary to chronic pulmonary obstructive disease exacerbation, likely secondary to upper respiratory infection. The patient is still having active DuoNebs. Will continue her digoxin and atenolol, as well as her Eliquis. This is likely exacerbated secondary to the chronic pulmonary obstructive disease. Once it was treated she did improve. It has improved thus far, will trend troponins, EKG, keep her on telemetry. Rule out acute coronary syndrome (ACS). 2. History of pulmonary hypertension. Oxygen as needed. Diastolic congestive heart failure. She appears euvolemic at this point. Continue spironolactone, Lasix, potassium supplementation. 3. Hypertension. Continue Norvasc and diuretics. 4. Hyperlipidemia. Continue statin. 5. Chronic kidney disease stage III. Stable at baseline. 6. Supportive deep venous thrombosis prophylaxis. She is on Eliquis. 7. Gastrointestinal prophylaxis. Not indicated. 8. Diet. Cardiac fluid restriction diet.
[2019-02-01] MEDS: HumaLOG INSULIN (NovoLOG) PER UNIT SC SCH ×2 (17:19→21:03)
[2019-02-01] MEDS: OTEZLA 30 MG PO SCH (21:03)
--- NOTE | 2019-02-01 21:07 | IPNPDOC ---
Subjective Date Seen The patient was seen on 02/01/19. Subjective Chief Complaint/HPI Shortness of breath, rapid heart rate Events since last encounter The patient reports her shortness of breath seems a little improved but still has some particularly with minimal exertion. Associated slight wheeze. No assoc iated fevers. Denies any chest pain. Reports she noticed the rapid heart rate at homethis has improved. No nausea or vomiting. No abdominal pain. No change in her bladder/bowel habits. Objective Physical Examination General Exam: Positive: Alert, Cooperative, No Acute Distress Eye Exam: Positive: PERRLA ENT Exam: Positive: Mucous membr. moist/pink Chest Exam: Positive: Other (diminished air entry bilaterally with slight wheeze. No over distress) Heart Exam: Positive: Normal S1, Normal S2, Other (regular rate and rhythm. No rubs or gallops) Abdomen Exam: Positive: Soft Neuro Exam: Positive: Other (awake, alert, answering questions appropriately) Assessment /Plan Assessment Acute COPD exacerbation likely due to acute bronchitis: -Continue IV azithromycin, IV Solu-Medrol, duo nebs, supplemental oxygen as needed Paroxysmal atrial fibrillation with upper and lower response now in normal sinus rhythm: -Continue atenolol, digoxin, Apixaban Pulmonary hypertension/chronic diastolic congestive heart failure: -Continue spironolactone, Lasix Hypertension: -Continue atenolol, Norvasc, spironolactone, Lasix Hyperlipidemia: -Continue statin Chronic kidney disease stage III: -Stable DVT prophylaxis: -Already on Apixaban Plan/VTE VTE Prophylaxis Ordered?: Yes VS, I&O, 24H, Fishbone Vital Signs/I&O Vital Signs Date Time Temp Pulse Resp B/P (MAP) Pulse Ox O2 Delivery O2 Flow Rate FiO2 02/01/19 15:00 98.8 02/01/19 14:00 89 18 134/66 (88) 95 02/01/19 11:20 Room Air Laboratory Data 24H LABS Laboratory Tests 2 02/01/19 01:46: Immature Granulocyte % (Auto) 0.5, White Blood Count 12.2H, Red Blood Count 4.03, Hemoglobin 9.5L, Hematocrit 32.0L, Mean Corpuscular Volume 79.4L, Mean Corpuscular Hemoglobin 23.6L, Mean Corpuscular Hemoglobin Concent 29.7L, Red Cell Distribution Width 16.1H, Platelet Count 318, Neutrophils (%) (Auto) 80.9H, Lymphocytes (%) (Auto) 5.6L, Monocytes (%) (Auto) 7.8H, Eosinophils (%) (Auto) 4.5H, Basophils (%) (Auto) 0.7, Neutrophils # (Auto) 9.9H, Lymphocytes # (Auto) 0.7L, Monocytes # (Auto) 1.0H, Eosinophils # (Auto) 0.6H, Basophils # (Auto) 0.1, Nucleated Red Blood Cells % (auto) 0.0, Blood Gas Bicarbonate Standard 23.3, Arterial Blood pH 7.393, Arterial Blood Partial Pressure CO2 39.0, Arterial Blood Partial Pressure O2 107.3H, Arterial Blood Total CO2 24.4, Arterial Blood HCO3 23.2, Arterial Blood Base Excess -1.5, Arterial Blood Oxygen Saturation 98.2, Anion Gap 9, Glomerular Filtration Rate 58.1, Lactic Acid Level 1.7, Blood Urea Nitrogen 13, Creatinine 1.02, Sodium Level 139, Potassium Level 3.5, Chloride Level 104, Carbon Dioxide Level 26, Calcium Level 8.9, Total Creatine Kinase 60, Magnesium Level 2.0, Creatine Kinase MB 2.0, Creatine Kinase MB Relative Index 3.50, Troponin I < 0.02, NU-Rml-Q-Type Natriuretic Peptide 407H, Thyroid Stimulating Hormone (TSH) 2.030, Digoxin Level 0.6 02/01/19 02:04: Influenza Type A (RT-PCR) NEGATIVE, Influenza Type B (RT-PCR) NEGATIVE 02/01/19 04:35: Prothrombin Time 16.6H, Prothromb Time International Ratio 1.32, Activated Partial Thromboplast Time 31.4 02/01/19 07:05: Troponin I < 0.02 02/01/19 12:44: Troponin I < 0.02 02/01/19 20:46: Bedside Glucose (Misc Panel) 155H CBC/BMP Laboratory Tests 02/01/19 01:46 Red Blood Count 4.03, Mean Corpuscular Volume 79.4 L, Mean Corpuscular Hemoglobin 23.6 L, Mean Corpuscular Hemoglobin Concent 29.7 L, Red Cell Distribution Width 16.1 H, Neutrophils (%) (Auto) 80.9 H, Lymphocytes (%) (Auto) 5.6 L, Monocytes (%) (Auto) 7.8 H, Eosinophils (%) (Auto) 4.5 H, Basophils (%) (Auto) 0.7, Neutrophils # (Auto) 9.9 H, Lymphocytes # (Auto) 0.7 L, Monocytes # (Auto) 1.0 H, Eosinophils # (Auto) 0.6 H, Basophils # (Auto) 0.1, Calcium Level 8.9, Total Creatine Kinase 60 Microbiology Microbiology 02/01/19 Blood Culture, Received Pending 02/01/19 Blood Culture, Received Pending YARELI DAVIES MD Feb 01, 2019 21:07
[2019-02-01 22:00] VITALS: BP 132/66
--- NOTE | 2019-02-01 22:03 | ECGEPIP ---
Stationary ECG Study [facility] - ED Test Date: 2019-02-01 Pat Name: PALAK MANJARREZ Department: Room: [place] [address] Gender: F [employer]ist: gt : [id number] Requested By: Julien Fox Order Number: [id number] Reading MD: Julien Espinal Measurements Intervals [place] Rate: 146 P: CO: 0 QRS: 62 QRSD: 85 T: 59 QT: 292 QTc: 456 Interpretive Statements ATRIAL FIBRILLATION WITH RAPID VENTRICULAR RESPONSE MODERATE ST DEPRESSION RHYTHM/RATE CHANGE COMPARED TO 10/21/18 Electronically Signed On 02-01-2019 22:03:11 EDT by Julien Espinal
[2019-02-02] MEDS: IPRATROPIUM 0.5MG/ALBUTEROL 2.5MG INH SOL UD 3ML (DUONEB)(J7620) NEB SCH ×7 (00:09→23:27)
[2019-02-02] MEDS: methylPREDNISolone INJ 40 MG/1 ML VIAL (J2920) IV SCH ×4 (04:52→22:42)
[2019-02-02] MEDS: AZITHROMYCIN INJ 500 MG, VIAL MATE ADAPTER 1 EACH in D5W 250 ML IV SCH (04:52)
[2019-02-02 06:00] VITALS: BP 139/65
[2019-02-02 06:06] LABS: HEMATOCRIT 33.4 % (36.0-47.0); HEMOGLOBIN 9.7 g/dl (12.0-15.5); MEAN CORPUSCULAR HEMOGLOBIN 23.4 pg (27.0-33.0); MEAN CORPUSCULAR VOLUME 80.7 fl (80.0-96.0); PLATELET COUNT, AUTOMATED 317 10^3/uL (150-450); RED BLOOD COUNT 4.14 10^6/uL (4.00-5.40); WHITE BLOOD COUNT 14.3 10^3/uL (4.0-10.0)
[2019-02-02 06:18] LABS: CALCIUM LEVEL 9.1 MG/DL (8.8-10.2); CREATININE FOR GFR 1.1 MG/DL (0.55-1.30); GLOMERULAR FILTRATION RATE 53.2 (>45); POTASSIUM SERUM 3.7 MEQ/L (3.5-5.1)
[2019-02-02] MEDS: DOXYCYCLINE HYCLATE 100 MG in D5W MINI-BAG PLUS 100 ML IV SCH ×2 (06:43→18:27)
[2019-02-02] MEDS: HumaLOG INSULIN (NovoLOG) PER UNIT SC SCH ×4 (08:56→21:00)
[2019-02-02] MEDS: APIXABAN 5 MG TAB (ELIQUIS) PO SCH ×2 (08:56→21:49)
[2019-02-02] MEDS: ATENOLOL 25 MG TAB PO SCH (08:57)
[2019-02-02] MEDS: SPIRONOLACTONE 25 MG TAB PO SCH (08:57)
[2019-02-02] MEDS: POTASSIUM CHLORIDE 10 MEQ SR TABLET PO SCH ×2 (08:57→21:49)
[2019-02-02] MEDS: OMEPRAZOLE 20 MG CAP PO SCH (08:57)
[2019-02-02] MEDS: VITAMIN D 1,000 INTERNATIONAL UNITS TABLET PO SCH (08:57)
[2019-02-02] MEDS: amLODIPine 5 MG TAB PO SCH (08:57)
[2019-02-02] MEDS: DIGOXIN 0.125 MG TAB PO SCH (08:58)
[2019-02-02] MEDS: FUROSEMIDE 40 MG TAB PO SCH ×2 (08:58→17:42)
[2019-02-02] MEDS: OTEZLA 30 MG PO SCH ×2 (09:00→21:51)
[2019-02-02 14:00] VITALS: BP 138/64
--- NOTE | 2019-02-02 19:38 | IPNPDOC ---
Subjective Date Seen The patient was seen on 02/02/19. Subjective Chief Complaint/HPI Shortness of breath, rapid heart rate Events since last encounter Patient reports she still has some wheezing or shortness of breath with minimal activity. Cough with some creamish sputum. No associated fevers chills or swe ats. No nausea or vomiting. Tolerating oral intake. Urinating okay and having bowel movements okay Objective Physical Examination General Exam: Positive: Alert, Cooperative, No Acute Distress, Other (sitting up in bed) Eye Exam: Positive: PERRLA ENT Exam: Positive: Mucous membr. moist/pink Chest Exam: Positive: Wheezing, Diminished, Other (bilateral slight wheeze and decreased air entry bilaterally.) Heart Exam: Positive: Normal S1, Normal S2, Other (regular rate and rhythm. No rubs or gallops) Abdomen Exam: Positive: Soft, Other (nontender) Neuro Exam: Positive: Other (awake, alert, answering questions appropriately) Assessment /Plan Assessment Acute COPD exacerbation likely due to acute bronchitis: -Continue IV azithromycin -Increased dose of IV Solu-Medrol to 60 mg IV every 6 hours -Continue DuoNeb's Paroxysmal atrial fibrillation with upper and lower response now in normal sinus rhythm: -Continue atenolol, digoxin, Apixaban Pulmonary hypertension/chronic diastolic congestive heart failure: -Continue spironolactone, Lasix Hypertension: -Continue atenolol, Norvasc, spironolactone, Lasix Hyperlipidemia: -Continue statin Chronic kidney disease stage III: -Stable DVT prophylaxis: -Already on Apixaban Disposition: Anticipate discharge home over the next 48 hours once she can be tapered to oral prednisone Plan/VTE VTE Prophylaxis Ordered?: Yes VS, I&O, 24H, [facility] Vital Signs/I&O Vital Signs Date Time Temp Pulse Resp B/P (MAP) Pulse Ox O2 Delivery O2 Flow Rate FiO2 02/02/19 14:00 98.6 82 18 138/64 (88) 92 02/01/19 11:20 Room Air I&O- Last 24 Hours up to 6 AM 02/02/19 06:00 Intake Total 1530 ml Output Total 950 ml Balance 580 ml Laboratory Data 24H LABS Laboratory Tests 2 02/01/19 20:46: Bedside Glucose (Misc Panel) 155H 02/02/19 05:33: Nucleated Red Blood Cells % (auto) 0.0, Anion Gap 10, Glomerular Filtration Rate 53.2, Blood Urea Nitrogen 23#H, Creatinine 1.10, Sodium Level 140, Potassium Level 3.7, Chloride Level 105, Carbon Dioxide Level 25, Calcium Level 9.1 02/02/19 11:47: Bedside Glucose (Misc Panel) 146H CBC/BMP Laboratory Tests 02/02/19 05:33 Red Blood Count 4.14, Mean Corpuscular Volume 80.7, Mean Corpuscular Hemoglobin 23.4 L, Mean Corpuscular Hemoglobin Concent 29.0 L, Red Cell Distribution Width 16.5 H, Calcium Level 9.1 Microbiology Microbiology 02/01/19 Blood Culture - Preliminary, Resulted No growth after 24 hours . All specim... 02/01/19 Blood Culture - Preliminary, Resulted No growth after 24 hours . All specim... YARELI DAVIES MD Feb 02, 2019 19:38
[2019-02-02 22:00] VITALS: BP 131/67
[2019-02-03] MEDS: IPRATROPIUM 0.5MG/ALBUTEROL 2.5MG INH SOL UD 3ML (DUONEB)(J7620) NEB SCH ×5 (03:13→18:19)
[2019-02-03] MEDS: AZITHROMYCIN INJ 500 MG, VIAL MATE ADAPTER 1 EACH in D5W 250 ML IV SCH (04:27)
[2019-02-03] MEDS: methylPREDNISolone INJ 40 MG/1 ML VIAL (J2920) IV SCH ×4 (04:27→23:02)
[2019-02-03 06:00] VITALS: BP 149/77
[2019-02-03] MEDS: DOXYCYCLINE HYCLATE 100 MG in D5W MINI-BAG PLUS 100 ML IV SCH (06:09)
[2019-02-03 06:16] LABS: HEMATOCRIT 30.8 % (36.0-47.0); MEAN CORPUSCULAR HEMOGLOBIN 23.3 pg (27.0-33.0); MEAN CORPUSCULAR HGB CONC 29.2 g/dl (32.0-36.5); MEAN CORPUSCULAR VOLUME 79.8 fl (80.0-96.0); PLATELET COUNT, AUTOMATED 287 10^3/uL (150-450); RED BLOOD COUNT 3.86 10^6/uL (4.00-5.40); WHITE BLOOD COUNT 13.5 10^3/uL (4.0-10.0)
[2019-02-03 06:36] LABS: CALCIUM LEVEL 8.9 MG/DL (8.8-10.2); CREATININE FOR GFR 1.17 MG/DL (0.55-1.30); GLOMERULAR FILTRATION RATE 49.6 (>45); POTASSIUM SERUM 4.4 MEQ/L (3.5-5.1)
[2019-02-03] MEDS: FUROSEMIDE 40 MG TAB PO SCH ×2 (09:18→18:25)
[2019-02-03] MEDS: amLODIPine 5 MG TAB PO SCH (09:19)
[2019-02-03] MEDS: APIXABAN 5 MG TAB (ELIQUIS) PO SCH ×2 (09:20→21:09)
[2019-02-03] MEDS: DIGOXIN 0.125 MG TAB PO SCH (09:20)
[2019-02-03] MEDS: VITAMIN D 1,000 INTERNATIONAL UNITS TABLET PO SCH (09:20)
[2019-02-03] MEDS: POTASSIUM CHLORIDE 10 MEQ SR TABLET PO SCH ×2 (09:20→21:10)
[2019-02-03] MEDS: SPIRONOLACTONE 25 MG TAB PO SCH (09:20)
[2019-02-03] MEDS: OMEPRAZOLE 20 MG CAP PO SCH (09:23)
[2019-02-03] MEDS: ATENOLOL 25 MG TAB PO SCH (09:23)
[2019-02-03] MEDS: HumaLOG INSULIN (NovoLOG) PER UNIT SC SCH ×4 (09:25→21:00)
[2019-02-03] MEDS: OTEZLA 30 MG PO SCH ×2 (09:59→21:19)
[2019-02-03] MEDS: BENZONATATE 100 MG CAP PO PRN ×2 (13:08→21:20)
[2019-02-03] MEDS: guaiFENesin ER 600 MG TAB PO SCH ×2 (13:35→21:09)
[2019-02-03 14:00] VITALS: BP 125/64
--- NOTE | 2019-02-03 16:28 | IPNPDOC ---
Subjective Date Seen The patient was seen on 02/03/19. Subjective Chief Complaint/HPI Shortness of breath, rapid heart rate Events since last encounter Patient reports she is short of breath with minimal activity still although the shortness of breath does seem a little improved from yesterday. She reports some coughfeels like she has to cough stuff up but unable to do so. Denies any associated chest pain/fevers/chills/sweats. No nausea or vomiting. Tolerating oral intake. Objective Physical Examination General Exam: Positive: Alert, No Acute Distress, Other (Sitting up in bed) Eye Exam: Positive: PERRLA ENT Exam: Positive: Mucous membr. moist/pink Chest Exam: Positive: Diminished, Other (no overt wheezing today. No overt distress.) Heart Exam: Positive: Normal S1, Normal S2, Other (regular rate and rhythm. No rubs or gallops) Abdomen Exam: Positive: Soft, Other (nontender) Neuro Exam: Positive: Other (awake, alert, answering questions appropriately) Assessment /Plan Assessment Acute COPD exacerbation likely due to acute bronchitis: -Discontinue IV antibiotics -Switched to oral azithromycin 250 mg daily for 2 more days -Continue IV Solu-Medrol 60 mg every 6 hours for another dayplan to taper steroids starting tomorrow if shortness of breath continues to improve -Continue DuoNeb's -Added Mucinex, prn Tessalon Perles Paroxysmal atrial fibrillation with upper and lower response now in normal sinus rhythm: -Continue atenolol, digoxin, Apixaban Pulmonary hypertension/chronic diastolic congestive heart failure: -Continue spironolactone, Lasix Hypertension: -Continue atenolol, Norvasc, spironolactone, Lasix -Blood pressures are controlled for the most part Hyperlipidemia: -Continue statin Chronic kidney disease stage III: -Stable DVT prophylaxis: -Already on Apixaban Disposition: Anticipate discharge home over the next 48 hours once she can be tapered to oral prednisone Plan/VTE VTE Prophylaxis Ordered?: Yes VS, I&O, 24H, Fishbone Vital Signs/I&O Vital Signs Date Time Temp Pulse Resp B/P (MAP) Pulse Ox O2 Delivery O2 Flow Rate FiO2 02/03/19 14:00 98.3 79 18 125/64 (84) 92 02/01/19 11:20 Room Air I&O- Last 24 Hours up to 6 AM 02/03/19 06:00 Intake Total 1745 ml Output Total 2200 ml Balance -455 ml Laboratory Data 24H LABS Laboratory Tests 2 02/02/19 16:49: Bedside Glucose (Misc Panel) 146H 02/03/19 05:56: Nucleated Red Blood Cells % (auto) 0.0, Anion Gap 5L, Glomerular Filtration Rate 49.6, Blood Urea Nitrogen 27H, Creatinine 1.17, Sodium Level 138, Potassium Level 4.4, Chloride Level 104, Carbon Dioxide Level 29, Calcium Level 8.9 CBC/BMP Laboratory Tests 02/03/19 05:56 Red Blood Count 3.86 L, Mean Corpuscular Volume 79.8 L, Mean Corpuscular Hemoglobin 23.3 L, Mean Corpuscular Hemoglobin Concent 29.2 L, Red Cell Distribution Width 16.6 H, Calcium Level 8.9 Microbiology Microbiology 02/01/19 Blood Culture - Preliminary, Resulted No Growth after 48 hours. All Specime... 02/01/19 Blood Culture - Preliminary, Resulted No Growth after 48 hours. All Specime... YARELI DAVIES MD Feb 03, 2019 16:28
[2019-02-03 22:06] VITALS: BP 141/66
[2019-02-04] MEDS: IPRATROPIUM 0.5MG/ALBUTEROL 2.5MG INH SOL UD 3ML (DUONEB)(J7620) NEB SCH ×7 (00:20→23:48)
[2019-02-04] MEDS: methylPREDNISolone INJ 40 MG/1 ML VIAL (J2920) IV SCH ×4 (05:54→22:06)
[2019-02-04 06:00] VITALS: BP 138/67
[2019-02-04 06:16] LABS: HEMATOCRIT 31.6 % (36.0-47.0); HEMOGLOBIN 9.3 g/dl (12.0-15.5); MEAN CORPUSCULAR HEMOGLOBIN 23.3 pg (27.0-33.0); MEAN CORPUSCULAR HGB CONC 29.4 g/dl (32.0-36.5); MEAN CORPUSCULAR VOLUME 79.2 fl (80.0-96.0); PLATELET COUNT, AUTOMATED 281 10^3/uL (150-450); RED BLOOD COUNT 3.99 10^6/uL (4.00-5.40); WHITE BLOOD COUNT 11.9 10^3/uL (4.0-10.0)
[2019-02-04 06:35] LABS: CALCIUM LEVEL 8.9 MG/DL (8.8-10.2); CREATININE FOR GFR 1.19 MG/DL (0.55-1.30); GLOMERULAR FILTRATION RATE 48.6 (>45); POTASSIUM SERUM 4.1 MEQ/L (3.5-5.1)
[2019-02-04] MEDS: BUDESONIDE 0.5 MG/2 ML INHALATION SUSPENSION INH SCH ×2 (08:00→19:53)
[2019-02-04] MEDS: OTEZLA 30 MG PO SCH ×2 (08:02→22:06)
[2019-02-04] MEDS: DIGOXIN 0.125 MG TAB PO SCH (08:03)
[2019-02-04] MEDS: AZITHROMYCIN 250 MG TAB PO SCH (08:03)
[2019-02-04] MEDS: FUROSEMIDE 40 MG TAB PO SCH ×2 (08:04→16:50)
[2019-02-04] MEDS: POTASSIUM CHLORIDE 10 MEQ SR TABLET PO SCH ×2 (08:04→22:06)
[2019-02-04] MEDS: ATENOLOL 25 MG TAB PO SCH (08:04)
[2019-02-04] MEDS: APIXABAN 5 MG TAB (ELIQUIS) PO SCH ×2 (08:04→22:06)
[2019-02-04] MEDS: guaiFENesin ER 600 MG TAB PO SCH ×2 (08:04→22:06)
[2019-02-04] MEDS: amLODIPine 5 MG TAB PO SCH (08:04)
[2019-02-04] MEDS: VITAMIN D 1,000 INTERNATIONAL UNITS TABLET PO SCH (08:04)
[2019-02-04] MEDS: OMEPRAZOLE 20 MG CAP PO SCH (08:04)
[2019-02-04] MEDS: SPIRONOLACTONE 25 MG TAB PO SCH (08:04)
[2019-02-04] MEDS: HumaLOG INSULIN (NovoLOG) PER UNIT SC SCH ×4 (08:05→21:00)
[2019-02-04] MEDS ORDERED: SODIUM CHLORIDE NASAL 0.65% SPRAY BTL (OCEAN) PRN (10:15)
--- NOTE | 2019-02-04 12:10 | IPNPDOC ---
Subjective Date Seen The patient was seen on 02/04/19. Subjective Chief Complaint/HPI Shortness of breath, rapid heart rate Events since last encounter Patient reports she is still short of breath with minimal activity, associated wheeze, cough, no associated chest pain. No nausea/vomiting. Taking PO ok. Uri nating ok and having BM ok. Objective Physical Examination General Exam: Positive: Alert, No Acute Distress Eye Exam: Positive: PERRLA ENT Exam: Positive: Mucous membr. moist/pink Chest Exam: Positive: Other (Slight Bilateral wheeze. Diminished air entry bilaterally) Heart Exam: Positive: Normal S1, Normal S2, Other (Regular rate and rhythm. No rubs or gallops) Abdomen Exam: Positive: Soft, Other (Nontender) Extremity Exam: Positive: Other (No edema) Neuro Exam: Positive: Other (Awake, alert, answering questions appropriately) Assessment /Plan Assessment Acute COPD exacerbation likely due to acute bronchitis: -Oral azithromycin 250 mg daily to end 02/07/19 -Continue IV Solu-Medrol 60 mg every 6 hours plan to taper steroids starting tomorrow if shortness of breath continues to improve -Added Budesonide nebs BID -Continue DuoNeb's, prn albuterol nebs -Ct Mucinex, prn Tessalon Perles Paroxysmal atrial fibrillation with rapid ventricular response on presentation, now in normal sinus rhythm: -Continue atenolol, digoxin, Apixaban Pulmonary hypertension/chronic diastolic congestive heart failure: -Continue spironolactone, Lasix Hypertension: -Continue atenolol, Norvasc, spironolactone, Lasix -Blood pressures are controlled Hyperlipidemia: -Continue statin Chronic kidney disease stage III: -Stable DVT prophylaxis: -Already on Apixaban Disposition: Anticipate discharge home over the next 48 hours once she can be tapered to oral prednisone Plan/VTE VTE Prophylaxis Ordered?: Yes VS, I&O, 24H, Fishbone Vital Signs/I&O Vital Signs Date Time Temp Pulse Resp B/P (MAP) Pulse Ox O2 Delivery O2 Flow Rate FiO2 02/04/19 08:04 82 138/67 02/04/19 06:00 98.4 20 91 02/01/19 11:20 Room Air I&O- Last 24 Hours up to 6 AM 02/04/19 06:00 Intake Total 2025 ml Output Total 2855 ml Balance -830 ml Laboratory Data 24H LABS Laboratory Tests 2 02/03/19 12:11: Bedside Glucose (Misc Panel) 145H 02/03/19 17:14: Bedside Glucose (Misc Panel) 155H 02/03/19 20:24: Bedside Glucose (Misc Panel) 194H 02/04/19 05:43: Nucleated Red Blood Cells % (auto) 0.0, Anion Gap 7L, Glomerular Filtration Rate 48.6, Blood Urea Nitrogen 32H, Creatinine 1.19, Sodium Level 139, Potassium Level 4.1, Chloride Level 104, Carbon Dioxide Level 28, Calcium Level 8.9 CBC/BMP Laboratory Tests 02/04/19 05:43 Red Blood Count 3.99 L, Mean Corpuscular Volume 79.2 L, Mean Corpuscular Hemoglobin 23.3 L, Mean Corpuscular Hemoglobin Concent 29.4 L, Red Cell Distribution Width 16.4 H, Calcium Level 8.9 Microbiology Microbiology 02/01/19 Blood Culture - Preliminary, Resulted No Growth after 72 hours. All specime... 02/01/19 Blood Culture - Preliminary, Resulted No Growth after 72 hours. All specime... YARELI DAVIES MD Feb 04, 2019 12:10
[2019-02-04 14:00] VITALS: BP 135/66
[2019-02-04 22:00] VITALS: BP_SYST 145; BP_SYST 146; BP_DIAS 81; BP_DIAS 84
[2019-02-05] MEDS: BENZONATATE 100 MG CAP PO PRN ×2 (03:00→22:55)
[2019-02-05] MEDS: IPRATROPIUM 0.5MG/ALBUTEROL 2.5MG INH SOL UD 3ML (DUONEB)(J7620) NEB SCH ×5 (03:18→18:09)
[2019-02-05] MEDS: methylPREDNISolone INJ 40 MG/1 ML VIAL (J2920) IV SCH ×4 (05:00→21:05)
[2019-02-05 05:46] LABS: HEMATOCRIT 33.5 % (36.0-47.0); MEAN CORPUSCULAR HEMOGLOBIN 23.8 pg (27.0-33.0); MEAN CORPUSCULAR HGB CONC 29.9 g/dl (32.0-36.5); MEAN CORPUSCULAR VOLUME 79.8 fl (80.0-96.0); PLATELET COUNT, AUTOMATED 269 10^3/uL (150-450); WHITE BLOOD COUNT 12.3 10^3/uL (4.0-10.0)
[2019-02-05 06:00] VITALS: BP 135/67
[2019-02-05 06:11] LABS: CALCIUM LEVEL 8.9 MG/DL (8.8-10.2); CREATININE FOR GFR 1.11 MG/DL (0.55-1.30); GLOMERULAR FILTRATION RATE 52.7 (>45); MAGNESIUM LEVEL 2.6 MG/DL (1.8-2.4)
[2019-02-05] MEDS: BUDESONIDE 0.5 MG/2 ML INHALATION SUSPENSION INH SCH ×2 (08:06→18:09)
[2019-02-05] MEDS: AZITHROMYCIN 250 MG TAB PO SCH (09:38)
[2019-02-05] MEDS: OTEZLA 30 MG PO SCH ×2 (09:38→22:52)
[2019-02-05] MEDS: APIXABAN 5 MG TAB (ELIQUIS) PO SCH ×2 (09:39→22:48)
[2019-02-05] MEDS: VITAMIN D 1,000 INTERNATIONAL UNITS TABLET PO SCH (09:39)
[2019-02-05] MEDS: POTASSIUM CHLORIDE 10 MEQ SR TABLET PO SCH ×2 (09:39→22:48)
[2019-02-05] MEDS: guaiFENesin ER 600 MG TAB PO SCH ×2 (09:39→22:48)
[2019-02-05] MEDS: DIGOXIN 0.125 MG TAB PO SCH (09:41)
[2019-02-05] MEDS: SPIRONOLACTONE 25 MG TAB PO SCH (09:43)
[2019-02-05] MEDS: amLODIPine 5 MG TAB PO SCH (09:43)
[2019-02-05] MEDS: ATENOLOL 25 MG TAB PO SCH (09:44)
[2019-02-05] MEDS: OMEPRAZOLE 20 MG CAP PO SCH (09:44)
[2019-02-05] MEDS: HumaLOG INSULIN (NovoLOG) PER UNIT SC SCH ×4 (09:47→23:10)
[2019-02-05] MEDS: FUROSEMIDE 40 MG TAB PO SCH (09:49)
[2019-02-05 14:00] VITALS: BP 137/75
--- NOTE | 2019-02-05 17:20 | IPNPDOC ---
Date Seen The patient was seen on 02/05/19. Progress Note SUBJECTIVE: Patient is said she is doing better than when she came in, but she get sob with exertion to the bathroom, she is still coughing, her nostrils feel clogged and she is still wheezing. She denied fever, chills, chest pain. OBJECTIVE PHYSICAL EXAMINATION: VITAL SIGNS: Please see below. Physical exam Gen: NAD, healthy appearing , obese HEENT: normocephalic, atraumatic, no discharge from ears or nose, no oropharyngeal erythema or exudate, neck is supple, no lymphadenopathy, trachea midline CVS: RRR, normal S1n S2, no murmur, rubs, or gallops, no edema, no jvd Resp: propductive cough, diffused b/l wheezes and rhonchi, no crackles Abd : soft nontender, normal bowel sounds, no rebound tenderness or guarding MSK: no swelling, full range of motion, strength 5/5 Neuro: AOAx3, no confusion, no focal deficit Psych: normal mood and affect, good judgment LABORATORY DATA, IMAGING STUDIES, MICROBIOLOGY: Please see below.- reviewed DVT prophylaxis ordered?: [yes] ASSESSMENT AND PLAN: Acute COPD exacerbation likely due to acute bronchitis: -Oral azithromycin 250 mg daily to end 02/07/19 -tapered IV Solu-Medrol 60 mg to 40mg q8h hours - Budesonide inh BID -Continue DuoNeb's, prn albuterol nebs -Ct Mucinex, prn Tessalon Perles Paroxysmal atrial fibrillation with rapid ventricular response on presentation, now in normal sinus rhythm: -Continue atenolol, digoxin, Apixaban -f/u echo Pulmonary hypertension/chronic diastolic congestive heart failure: -Continue spironolactone, Lasix Hypertension: -Continue atenolol, Norvasc, spironolactone, Lasix -Blood pressures are controlled Hyperlipidemia: -Continue statin Chronic kidney disease stage III: -Stable DVT prophylaxis: -Already on Apixaban Disposition: Anticipate discharge home over the next 48 hours once she can be tapered to oral prednisone DISPOSITION: [pending clinical improvement ]. VS, I&O, 24H, Fishbone Vital Signs/I&O Vital Signs Date Time Temp Pulse Resp B/P (MAP) Pulse Ox O2 Delivery O2 Flow Rate FiO2 02/05/19 14:00 98.5 74 16 137/75 (95) 92 02/01/19 11:20 Room Air I&O- Last 24 Hours up to 6 AM 02/05/19 06:00 Intake Total 2100 ml Output Total 3600 ml Balance -1500 ml Laboratory Data 24H LABS Laboratory Tests 2 02/05/19 05:34: Nucleated Red Blood Cells % (auto) 0.0, Anion Gap 8, Glomerular Filtration Rate 52.7, Blood Urea Nitrogen 38H, Creatinine 1.11, Sodium Level 142, Potassium Level 4.0, Chloride Level 106, Carbon Dioxide Level 28, Calcium Level 8.9, Phosphorus Level 4.0, Magnesium Level 2.6H 02/05/19 16:41: Bedside Glucose (Misc Panel) 145H CBC/BMP Laboratory Tests 02/05/19 05:34 Red Blood Count 4.20, Mean Corpuscular Volume 79.8 L, Mean Corpuscular Hemoglobin 23.8 L, Mean Corpuscular Hemoglobin Concent 29.9 L, Red Cell Distribution Width 16.1 H, Calcium Level 8.9 Microbiology Microbiology 02/01/19 Blood Culture - Preliminary, Resulted No Growth after 72 hours. All specime... 02/01/19 Blood Culture - Preliminary, Resulted No Growth after 72 hours. All specime... SHERI REAL MD Feb 05, 2019 17:20
[2019-02-05 22:00] VITALS: BP 126/66
[2019-02-06] MEDS: methylPREDNISolone INJ 40 MG/1 ML VIAL (J2920) IV SCH ×5 (00:35→18:16)
[2019-02-06] MEDS: IPRATROPIUM 0.5MG/ALBUTEROL 2.5MG INH SOL UD 3ML (DUONEB)(J7620) NEB SCH ×6 (04:49→23:57)
[2019-02-06 06:00] VITALS: BP 135/61
[2019-02-06 06:11] LABS: HEMATOCRIT 35.2 % (36.0-47.0); HEMOGLOBIN 10.4 g/dl (12.0-15.5); MEAN CORPUSCULAR HEMOGLOBIN 23.8 pg (27.0-33.0); MEAN CORPUSCULAR HGB CONC 29.5 g/dl (32.0-36.5); MEAN CORPUSCULAR VOLUME 80.5 fl (80.0-96.0); PLATELET COUNT, AUTOMATED 296 10^3/uL (150-450); RED BLOOD COUNT 4.37 10^6/uL (4.00-5.40); WHITE BLOOD COUNT 14.7 10^3/uL (4.0-10.0)
[2019-02-06 06:54] LABS: CALCIUM LEVEL 9.2 MG/DL (8.8-10.2); CREATININE FOR GFR 1.13 MG/DL (0.55-1.30); GLOMERULAR FILTRATION RATE 51.6 (>45); MAGNESIUM LEVEL 2.7 MG/DL (1.8-2.4); POTASSIUM SERUM 4.4 MEQ/L (3.5-5.1)
[2019-02-06] MEDS: BUDESONIDE 0.5 MG/2 ML INHALATION SUSPENSION INH SCH (07:49)
[2019-02-06] MEDS: guaiFENesin ER 600 MG TAB PO SCH ×2 (09:00→22:30)
[2019-02-06] MEDS: VITAMIN D 1,000 INTERNATIONAL UNITS TABLET PO SCH (09:36)
[2019-02-06] MEDS: APIXABAN 5 MG TAB (ELIQUIS) PO SCH ×2 (09:37→22:30)
[2019-02-06] MEDS: OMEPRAZOLE 20 MG CAP PO SCH (09:37)
[2019-02-06] MEDS: POTASSIUM CHLORIDE 10 MEQ SR TABLET PO SCH ×2 (09:37→22:29)
[2019-02-06] MEDS: HumaLOG INSULIN (NovoLOG) PER UNIT SC SCH ×4 (09:39→22:31)
[2019-02-06] MEDS: AZITHROMYCIN 250 MG TAB PO SCH (09:43)
[2019-02-06] MEDS: OTEZLA 30 MG PO SCH ×2 (09:43→22:30)
[2019-02-06] MEDS: DIGOXIN 0.125 MG TAB PO SCH (09:44)
[2019-02-06] MEDS: amLODIPine 5 MG TAB PO SCH (09:44)
[2019-02-06] MEDS: FUROSEMIDE 20 MG TAB PO SCH ×2 (09:44→18:16)
[2019-02-06] MEDS: ATENOLOL 25 MG TAB PO SCH (09:45)
[2019-02-06] MEDS: SPIRONOLACTONE 25 MG TAB PO SCH (09:54)
[2019-02-06 14:00] VITALS: BP 121/62
--- NOTE | 2019-02-06 15:49 | IPNPDOC ---
Date Seen The patient was seen on 02/06/19. Progress Note SUBJECTIVE: Patient is said she is doing better than when she came in, but she still gets sob with exertion to the bathroom. Her coughing is slightly improved, her nostrils feel clogged. She denied fever, chills, chest pain. OBJECTIVE PHYSICAL EXAMINATION: VITAL SIGNS: Please see below. Gen: NAD, healthy appearing , obese HEENT: normocephalic, atraumatic, no discharge from ears or nose, no oropharyngeal erythema or exudate, neck is supple, no lymphadenopathy, trachea midline CVS: RRR, normal S1n S2, no murmur, rubs, or gallops, no edema, no jvd Resp: diffused b/l wheezes without rhonchi today, no crackles Abd : soft nontender, normal bowel sounds, no rebound tenderness or guarding MSK: no swelling, full range of motion, strength 5/5 Neuro: AOAx3, no confusion, no focal deficit Psych: normal mood and affect, good judgment LABORATORY DATA, IMAGING STUDIES, MICROBIOLOGY: Please see below.- reviewed DVT prophylaxis ordered?: [yes] ASSESSMENT AND PLAN: Acute COPD exacerbation likely due to acute bronchitis: -Oral azithromycin 250 mg daily to end 02/07/19 -c/w 40mg q8h hours -change Budesonide inh BID to advair bid -Continue DuoNeb's, prn albuterol nebs -Ct Mucinex, prn Tessalon Perles Paroxysmal atrial fibrillation with rapid ventricular response on presentation, now in normal sinus rhythm: -Continue atenolol, digoxin, Apixaban -f/u echo Pulmonary hypertension/chronic diastolic congestive heart failure: -Continue spironolactone, Lasix Hypertension: -Continue atenolol, Norvasc, spironolactone, Lasix -Blood pressures are controlled Hyperlipidemia: -Continue statin Chronic kidney disease stage III: -Stable DVT prophylaxis: -Already on Apixaban DISPOSITION: [pending clinical improvement ]. VS, I&O, 24H, Fishbone Vital Signs/I&O Vital Signs Date Time Temp Pulse Resp B/P (MAP) Pulse Ox O2 Delivery O2 Flow Rate FiO2 02/06/19 14:00 97.3 70 20 121/62 (81) 93 02/01/19 11:20 Room Air I&O- Last 24 Hours up to 6 AM 02/06/19 06:00 Intake Total 1290 ml Output Total 3300 ml Balance -2010 ml Laboratory Data 24H LABS Laboratory Tests 2 02/05/19 16:41: Bedside Glucose (Misc Panel) 145H 02/05/19 20:34: Bedside Glucose (Misc Panel) 164H 02/06/19 05:53: Nucleated Red Blood Cells % (auto) 0.0, Anion Gap 9, Glomerular Filtration Rate 51.6, Blood Urea Nitrogen 35H, Creatinine 1.13, Sodium Level 141, Potassium Level 4.4, Chloride Level 107, Carbon Dioxide Level 25, Calcium Level 9.2, Phosphorus Level 4.0, Magnesium Level 2.7H CBC/BMP Laboratory Tests 02/06/19 05:53 Red Blood Count 4.37, Mean Corpuscular Volume 80.5, Mean Corpuscular Hemoglobin 23.8 L, Mean Corpuscular Hemoglobin Concent 29.5 L, Red Cell Distribution Width 16.1 H, Calcium Level 9.2 Microbiology Microbiology 02/01/19 Blood Culture - Final, Complete NO GROWTH AFTER 5 DAYS 02/01/19 Blood Culture - Final, Complete NO GROWTH AFTER 5 DAYS SHERI REAL MD Feb 06, 2019 15:49
[2019-02-06] MEDS: ADVAIR HFA 115/21MCG INHALER INH SCH (20:00)
[2019-02-06 22:00] VITALS: BP 154/72
[2019-02-06] MEDS: BENZONATATE 100 MG CAP PO PRN (22:29)
[2019-02-07] MEDS: methylPREDNISolone INJ 40 MG/1 ML VIAL (J2920) IV SCH ×3 (02:45→20:23)
[2019-02-07] MEDS: IPRATROPIUM 0.5MG/ALBUTEROL 2.5MG INH SOL UD 3ML (DUONEB)(J7620) NEB SCH ×5 (03:22→20:00)
[2019-02-07 06:00] VITALS: BP 139/73
[2019-02-07 06:06] LABS: HEMATOCRIT 32.8 % (36.0-47.0); HEMOGLOBIN 9.6 g/dl (12.0-15.5); MEAN CORPUSCULAR HEMOGLOBIN 23.2 pg (27.0-33.0); MEAN CORPUSCULAR HGB CONC 29.3 g/dl (32.0-36.5); MEAN CORPUSCULAR VOLUME 79.2 fl (80.0-96.0); PLATELET COUNT, AUTOMATED 270 10^3/uL (150-450); RED BLOOD COUNT 4.14 10^6/uL (4.00-5.40); WHITE BLOOD COUNT 15.4 10^3/uL (4.0-10.0)
[2019-02-07 06:29] LABS: CALCIUM LEVEL 8.5 MG/DL (8.8-10.2); CREATININE FOR GFR 1.19 MG/DL (0.55-1.30); GLOMERULAR FILTRATION RATE 48.6 (>45); MAGNESIUM LEVEL 2.5 MG/DL (1.8-2.4); PHOSPHORUS LEVEL 3.9 MG/DL (2.5-4.9); POTASSIUM SERUM 4.4 MEQ/L (3.5-5.1)
[2019-02-07] MEDS: HumaLOG INSULIN (NovoLOG) PER UNIT SC SCH ×4 (07:30→21:44)
[2019-02-07] MEDS: ADVAIR HFA 115/21MCG INHALER INH SCH ×2 (08:01→21:51)
[2019-02-07] MEDS ORDERED: methylPREDNISolone INJ 40 MG/1 ML VIAL (J2920) IV SCH (09:00)
[2019-02-07] MEDS: OTEZLA 30 MG PO SCH ×2 (09:31→20:22)
[2019-02-07] MEDS: POTASSIUM CHLORIDE 10 MEQ SR TABLET PO SCH ×2 (09:31→20:21)
[2019-02-07] MEDS: guaiFENesin ER 600 MG TAB PO SCH ×2 (09:31→20:19)
[2019-02-07] MEDS: VITAMIN D 1,000 INTERNATIONAL UNITS TABLET PO SCH (09:31)
[2019-02-07] MEDS: OMEPRAZOLE 20 MG CAP PO SCH (09:31)
[2019-02-07] MEDS: FUROSEMIDE 20 MG TAB PO SCH ×2 (09:31→17:00)
[2019-02-07] MEDS: APIXABAN 5 MG TAB (ELIQUIS) PO SCH ×2 (09:31→20:20)
[2019-02-07] MEDS: SPIRONOLACTONE 25 MG TAB PO SCH (09:31)
[2019-02-07] MEDS: DIGOXIN 0.125 MG TAB PO SCH (09:31)
[2019-02-07] MEDS: amLODIPine 5 MG TAB PO SCH (09:32)
[2019-02-07] MEDS: ATENOLOL 25 MG TAB PO SCH (09:32)
[2019-02-07 14:00] VITALS: BP 135/67
--- NOTE | 2019-02-07 14:52 | REP ---
Radionuclide pulmonary ventilation and perfusion scan: The study is performed with 1 mCi technetium 99 DTPA aerosol followed by 5.5 mCi of technetium 99m MAA intravenously. No perfusion defects are identified. No ventilation defects are identified. There is radiotracer precipitation within the central airways compatible with COPD. Impression: Low probability of pulmonary embolus. Electronically Signed by Martinez Lui MD 02/07/2019 02:43 P
--- NOTE | 2019-02-07 14:54 | REP ---
PA and lateral chest: Comparison is 02/05/2018. The lung stanley are hyperinflated, as previously. There are no infiltrates or pleural effusions. There are no masses or nodules. The lung stanley otherwise clear and unchanged. Cardiac size is normal. The antoni, mediastinum, and skeletal structures are unremarkable. Impression: Chronic hyperinflation, otherwise negative PA and lateral chest. Electronically Signed by Martinez Lui MD 02/07/2019 02:46 P
--- NOTE | 2019-02-07 15:14 | IPNPDOC ---
Date Seen The patient was seen on 02/07/19. Progress Note SUBJECTIVE: She still gets sob with exertion to the bathroom. Her coughing is much improved, She denied fever, chills, chest pain. OBJECTIVE PHYSICAL EXAMINATION: VITAL SIGNS: Please see below. Gen: NAD, healthy appearing , obese HEENT: normocephalic, atraumatic, no discharge from ears or nose, no oropharyngeal erythema or exudate, neck is supple, no lymphadenopathy, trachea midline CVS: RRR, normal S1n S2, no murmur, rubs, or gallops, +2 edema, no jvd Resp: minimal b/l wheezes without rhonchi today, no crackles Abd : soft nontender, normal bowel sounds, no rebound tenderness or guarding MSK: no swelling, full range of motion, strength 5/5 Neuro: AOAx3, no confusion, no focal deficit Psych: normal mood and affect, good judgment LABORATORY DATA, IMAGING STUDIES, MICROBIOLOGY: Please see below.- reviewed DVT prophylaxis ordered?: [yes] ASSESSMENT AND PLAN: Acute COPD exacerbation likely due to acute bronchitis: still sob -Oral azithromycin 250 mg daily to end 02/07/19 -taper from 40mg q8h hours to q12h -c/w advair bid -Continue DuoNeb's, prn albuterol nebs -Ct Mucinex, prn Tessalon Perles -Vq scan is negative for PE - will give one dose of 40mg of iv lasix to see if this will improve her sob Paroxysmal atrial fibrillation with rapid ventricular response on presentation, now in normal sinus rhythm: -Continue atenolol, digoxin, Apixaban -f/u echo Pulmonary hypertension/chronic diastolic congestive heart failure: -Continue spironolactone, Lasix Hypertension: -Continue atenolol, Norvasc, spironolactone, Lasix -Blood pressures are controlled Hyperlipidemia: -Continue statin Chronic kidney disease stage III: -Stable DVT prophylaxis: -Already on Apixaban DISPOSITION: [pending clinical improvement ]. VS, I&O, 24H, Fishbone Vital Signs/I&O Vital Signs Date Time Temp Pulse Resp B/P (MAP) Pulse Ox O2 Delivery O2 Flow Rate FiO2 02/07/19 14:00 97.7 69 17 135/67 (89) 92 02/01/19 11:20 Room Air I&O- Last 24 Hours up to 6 AM 02/07/19 05:59 Intake Total 1490 ml Output Total 3850 ml Balance -2360 ml Laboratory Data 24H LABS Laboratory Tests 2 02/06/19 16:47: Bedside Glucose (Misc Panel) 136H 02/06/19 20:28: Bedside Glucose (Misc Panel) 145H 02/07/19 05:43: Nucleated Red Blood Cells % (auto) 0.0, Anion Gap 5L, Glomerular Filtration Rate 48.6, Blood Urea Nitrogen 34H, Creatinine 1.19, Sodium Level 141, Potassium Level 4.4, Chloride Level 109H, Carbon Dioxide Level 27, Calcium Level 8.5L, Phosphorus Level 3.9, Magnesium Level 2.5H CBC/BMP Laboratory Tests 02/07/19 05:43 Red Blood Count 4.14, Mean Corpuscular Volume 79.2 L, Mean Corpuscular Hemoglobin 23.2 L, Mean Corpuscular Hemoglobin Concent 29.3 L, Red Cell Distribution Width 16.0 H, Calcium Level 8.5 L Microbiology Microbiology 02/01/19 Blood Culture - Final, Complete NO GROWTH AFTER 5 DAYS 02/01/19 Blood Culture - Final, Complete NO GROWTH AFTER 5 DAYS 02/06/19 Gram Stain - Final, Resulted 02/06/19 Sputum Culture, Resulted Pending 02/06/19 Respiratory Virus Panel (PCR) (TAMIKO) - Final, Complete Parainfluenza 3 (Piv3) SHERI REAL MD Feb 07, 2019 15:14
[2019-02-07] MEDS ORDERED: FUROSEMIDE 40 MG/4 ML VIAL (J1940) IV ONE (15:15)
[2019-02-07 22:00] VITALS: BP 150/73
[2019-02-08] MEDS: IPRATROPIUM 0.5MG/ALBUTEROL 2.5MG INH SOL UD 3ML (DUONEB)(J7620) NEB SCH ×6 (00:32→20:00)
[2019-02-08 06:01] VITALS: BP 142/60
[2019-02-08 06:10] LABS: HEMATOCRIT 35.2 % (36.0-47.0); HEMOGLOBIN 10.4 g/dl (12.0-15.5); MEAN CORPUSCULAR HEMOGLOBIN 23.6 pg (27.0-33.0); MEAN CORPUSCULAR HGB CONC 29.5 g/dl (32.0-36.5); PLATELET COUNT, AUTOMATED 307 10^3/uL (150-450); WHITE BLOOD COUNT 18.5 10^3/uL (4.0-10.0)
[2019-02-08 06:31] LABS: CALCIUM LEVEL 8.7 MG/DL (8.8-10.2); CREATININE FOR GFR 1.09 MG/DL (0.55-1.30); GLOMERULAR FILTRATION RATE 53.8 (>45); MAGNESIUM LEVEL 2.5 MG/DL (1.8-2.4); PHOSPHORUS LEVEL 4.4 MG/DL (2.5-4.9); POTASSIUM SERUM 4.1 MEQ/L (3.5-5.1)
[2019-02-08] MEDS: ADVAIR HFA 115/21MCG INHALER INH SCH ×2 (08:31→21:13)
[2019-02-08] MEDS: DIGOXIN 0.125 MG TAB PO SCH (08:58)
[2019-02-08] MEDS: amLODIPine 5 MG TAB PO SCH (08:58)
[2019-02-08] MEDS: SPIRONOLACTONE 25 MG TAB PO SCH (08:59)
[2019-02-08] MEDS: guaiFENesin ER 600 MG TAB PO SCH ×2 (08:59→21:11)
[2019-02-08] MEDS: ATENOLOL 25 MG TAB PO SCH (08:59)
[2019-02-08] MEDS: OMEPRAZOLE 20 MG CAP PO SCH (08:59)
[2019-02-08] MEDS: methylPREDNISolone INJ 40 MG/1 ML VIAL (J2920) IV SCH ×2 (08:59→21:12)
[2019-02-08] MEDS: FUROSEMIDE 20 MG TAB PO SCH (08:59)
[2019-02-08] MEDS: VITAMIN D 1,000 INTERNATIONAL UNITS TABLET PO SCH (08:59)
[2019-02-08] MEDS: OTEZLA 30 MG PO SCH ×2 (08:59→21:11)
[2019-02-08] MEDS: APIXABAN 5 MG TAB (ELIQUIS) PO SCH ×2 (08:59→21:11)
[2019-02-08] MEDS: POTASSIUM CHLORIDE 10 MEQ SR TABLET PO SCH ×2 (08:59→21:11)
[2019-02-08] MEDS: HumaLOG INSULIN (NovoLOG) PER UNIT SC SCH ×4 (09:00→21:00)
[2019-02-08] MEDS ORDERED: FUROSEMIDE 40 MG/4 ML VIAL (J1940) IV STA (11:38)
[2019-02-08 14:00] VITALS: BP 142/78
[2019-02-08] MEDS: FUROSEMIDE 40 MG/4 ML VIAL (J1940) IV SCH (17:00)
--- NOTE | 2019-02-08 17:25 | IPNPDOC ---
Date Seen The patient was seen on 02/08/19. Progress Note SUBJECTIVE: She still gets sob with exertion to the bathroom. Her coughing is a bit worse today, she sound wet. She denied fever, chills, chest pain. OBJECTIVE PHYSICAL EXAMINATION: VITAL SIGNS: Please see below. Gen: NAD, healthy appearing , obese HEENT: normocephalic, atraumatic, no discharge from ears or nose, no oropharyngeal erythema or exudate, neck is supple, no lymphadenopathy, trachea midline CVS: RRR, normal S1n S2, no murmur, rubs, or gallops, +2 edema, no jvd Resp: minimal b/l wheezes without rhonchi today, but scattered crackles Abd : soft nontender, normal bowel sounds, no rebound tenderness or guarding MSK: no swelling, full range of motion, strength 5/5 Neuro: AOAx3, no confusion, no focal deficit Psych: normal mood and affect, good judgment LABORATORY DATA, IMAGING STUDIES, MICROBIOLOGY: Please see below.- reviewed DVT prophylaxis ordered?: [yes] ASSESSMENT AND PLAN: Acute COPD exacerbation likely due to acute bronchitis 2/2 parainfluenza virus 3 - still sob -Oral azithromycin 250 mg daily to end 02/07/19 -c/w 40mg q12h -c/w advair bid -Continue DuoNeb's, prn albuterol nebs -Ct Mucinex, prn Tessalon Perles -Vq scan is negative for PE - increase lasix to 40mg bid -wbc count increasing , even though steroid was decreased,, afebrile, and repeat cxr yesterday only showed hyperinflation Paroxysmal atrial fibrillation with rapid ventricular response on presentation, now in normal sinus rhythm: -Continue atenolol, digoxin, Apixaban -f/u echo Pulmonary hypertension/chronic diastolic congestive heart failure: -Continue spironolactone, increased lasix to 40mg bid DM2 -c/w insulin Hypertension: -Continue atenolol, Norvasc, spironolactone, Lasix -Blood pressures are controlled Hyperlipidemia: -Continue statin Chronic kidney disease stage III: -Stable DVT prophylaxis: -Already on Apixaban DISPOSITION: [pending clinical improvement ]. VS, I&O, 24H, Fishbone Vital Signs/I&O Vital Signs Date Time Temp Pulse Resp B/P (MAP) Pulse Ox O2 Delivery O2 Flow Rate FiO2 02/08/19 14:00 97.1 68 20 142/78 (99) 94 I&O- Last 24 Hours up to 6 AM 02/08/19 06:00 Intake Total 1350 ml Output Total 4350 ml Balance -3000 ml Laboratory Data 24H LABS Laboratory Tests 2 02/07/19 20:49: Bedside Glucose (Misc Panel) 128H 02/08/19 05:38: Nucleated Red Blood Cells % (auto) 0.0, Anion Gap 5L, Glomerular Filtration Rate 53.8, Blood Urea Nitrogen 35H, Creatinine 1.09, Sodium Level 140, Potassium Level 4.1, Chloride Level 107, Carbon Dioxide Level 28, Calcium Level 8.7L, Phosphorus Level 4.4, Magnesium Level 2.5H 02/08/19 11:44: Bedside Glucose (Misc Panel) 114 02/08/19 16:47: Bedside Glucose (Misc Panel) 93 CBC/BMP Laboratory Tests 02/08/19 05:38 Red Blood Count 4.40, Mean Corpuscular Volume 80.0, Mean Corpuscular Hemoglobin 23.6 L, Mean Corpuscular Hemoglobin Concent 29.5 L, Red Cell Distribution Width 16.1 H, Calcium Level 8.7 L Microbiology Microbiology 02/01/19 Blood Culture - Final, Complete NO GROWTH AFTER 5 DAYS 02/01/19 Blood Culture - Final, Complete NO GROWTH AFTER 5 DAYS 02/06/19 Gram Stain - Final, Resulted 02/06/19 Sputum Culture, Resulted Pending 02/06/19 Respiratory Virus Panel (PCR) (TAMIKO) - Final, Complete Parainfluenza 3 (Piv3) SHERI REAL MD Feb 08, 2019 17:25
[2019-02-08 22:00] VITALS: BP 138/73
--- NOTE | 2019-02-08 22:54 | ECHO ---
DATE OF PROCEDURE: 02/07/2019 Date of : 1955 Age: 63 Gender: Female Height: 66 inches Weight: 205 pounds Body surface area: 2.02 meters squared Inpatient: [address] [place] [address], room 4225 REFERRING PHYSICIAN: Pily Chang MD INDICATION: Dyspnea. MEASUREMENTS: 2D measurements: RV: 3.6 cm LV: 4.6 cm Septum: 1.0 cm Posterior wall: 1.0 cm Aortic root: 3.0 cm LA: 3.9 cm LVEF: 75%. Doppler measurements: AV: 2.0 meters per second LVOT: 1.8 meters per second LVOT diameter: 1.9 cm Mean AV systolic gradient: 8 mmHg MV-E: 87, A: 100, EA ratio: 0.9 Early mitral deceleration time: 236 milliseconds E prime: 7.7, A: 7, E/E prime ratio: 11.3 Pulmonary capillary wedge pressure: 14.8 mmHg PV: 0.9 meters per second Pulmonary artery acceleration time: 126 milliseconds RVSP: 32 mmHg IVC: 1.8 cm COMMENTS: Normal sinus rhythm without intraventricular conduction disturbance. Somewhat technically challenging study in light of the patient's body habitus but diagnostically useful information was still obtained. M-mode and two-dimensional echocardiography was performed with pulsed, continuous wave, color flow, and tissue Doppler studies. Normal left ventricular size, wall thickness and hyperkinetic wall motion. Left atrial size upper limits of normal with Doppler evidence of an impairment of left ventricular (LV) diastolic function and current estimated mean left atrial pressure upper limits of normal to slightly increased. Normal right heart chamber sizes and motion with Doppler evidence of mild pulmonary hypertension. Normal inferior vena cava (IVC) size and collapse against an elevated central venous pressure. Mild aortic valvular sclerosis and mitral annular thickening without functionally significant valvular abnormality. Normal tricuspid valve appearance with mild insufficiency. No apparent intracardiac mass or pericardial effusion.
[2019-02-09] MEDS: IPRATROPIUM 0.5MG/ALBUTEROL 2.5MG INH SOL UD 3ML (DUONEB)(J7620) NEB SCH ×7 (00:03→23:22)
[2019-02-09 06:00] VITALS: BP 130/67
[2019-02-09 06:15] LABS: HEMATOCRIT 36.8 % (36.0-47.0); HEMOGLOBIN 10.7 g/dl (12.0-15.5); MEAN CORPUSCULAR HGB CONC 29.1 g/dl (32.0-36.5); MEAN CORPUSCULAR VOLUME 79.1 fl (80.0-96.0); PLATELET COUNT, AUTOMATED 317 10^3/uL (150-450); RED BLOOD COUNT 4.65 10^6/uL (4.00-5.40)
[2019-02-09 06:35] LABS: CALCIUM LEVEL 8.9 MG/DL (8.8-10.2); CREATININE FOR GFR 1.18 MG/DL (0.55-1.30); GLOMERULAR FILTRATION RATE 49.1 (>45); MAGNESIUM LEVEL 2.6 MG/DL (1.8-2.4); PHOSPHORUS LEVEL 4.8 MG/DL (2.5-4.9); POTASSIUM SERUM 4.3 MEQ/L (3.5-5.1)
[2019-02-09] MEDS: methylPREDNISolone INJ 40 MG/1 ML VIAL (J2920) IV SCH ×2 (08:43→21:02)
[2019-02-09] MEDS: OTEZLA 30 MG PO SCH ×2 (08:44→21:02)
[2019-02-09] MEDS: FUROSEMIDE 40 MG/4 ML VIAL (J1940) IV SCH ×2 (08:44→18:10)
[2019-02-09] MEDS: HumaLOG INSULIN (NovoLOG) PER UNIT SC SCH ×4 (08:44→21:00)
[2019-02-09] MEDS: OMEPRAZOLE 20 MG CAP PO SCH (08:45)
[2019-02-09] MEDS: APIXABAN 5 MG TAB (ELIQUIS) PO SCH ×2 (08:45→21:03)
[2019-02-09] MEDS: ATENOLOL 25 MG TAB PO SCH (08:45)
[2019-02-09] MEDS: guaiFENesin ER 600 MG TAB PO SCH ×2 (08:45→21:03)
[2019-02-09] MEDS: amLODIPine 5 MG TAB PO SCH (08:45)
[2019-02-09] MEDS: SPIRONOLACTONE 25 MG TAB PO SCH (08:45)
[2019-02-09] MEDS: POTASSIUM CHLORIDE 10 MEQ SR TABLET PO SCH ×2 (08:46→21:03)
[2019-02-09] MEDS: VITAMIN D 1,000 INTERNATIONAL UNITS TABLET PO SCH (08:46)
[2019-02-09] MEDS: DIGOXIN 0.125 MG TAB PO SCH (08:46)
[2019-02-09] MEDS: ADVAIR HFA 115/21MCG INHALER INH SCH ×2 (08:49→19:35)
[2019-02-09 14:00] VITALS: BP 130/67
--- NOTE | 2019-02-09 19:20 | IPNPDOC ---
Subjective Date Seen The patient was seen on 02/09/19. Subjective Chief Complaint/HPI Subjective: 63F admitted for COPD exacerbation has been in the hospital for more than 1 week. Interval history: Patient still wheezing but is improving everyday. States that she is still SOB but is better than yesterday. Objective Physical Examination General Exam: Positive: Alert, No Acute Distress Eye Exam: Positive: PERRLA ENT Exam: Positive: Mucous membr. moist/pink Chest Exam: Positive: Other (Slight Bilateral wheeze. Diminished air entry bilaterally) Heart Exam: Positive: Normal S1, Normal S2, Other (Regular rate and rhythm. No rubs or gallops) Abdomen Exam: Positive: Soft, Other (Nontender) Extremity Exam: Positive: Other (No edema) Neuro Exam: Positive: Other (Awake, alert, answering questions appropriately) Other physical findings Physical exam: General: No acute distress, Alert Eyes: Normal sclera, EOMI, RAMIREZ HENT: Atraumatic, neck supple, moist mucous membranes Cardiovascular: Normal rate, normal rhythm. No murmurs appreciated. Pulmonary: b/l wheezing. GI: Soft, nontender, nondistended Skin: Warm and dry Neuro: CN grossly intact. No focal deficits. Strengths equal b/l. Psych: oriented x 3 Assessment /Plan Assessment ASSESSMENT AND PLAN: 1. COPD exacerbation - likely 2/2 acute bronchitis 2/2 Parainfluenza virus. - SOB persistent but improving. - s/p Azithromycin. - c/w duonebs, advair. - taper steroid. 2. Afib - c/w atenolol, digoxin, and Eliquis. 3. HFpEF - c/w aldactone - lasix 40 mg bid 4. DM - accuchecks - c/w insulin. 5. HTN - c/w home medications. DVT ppx- already on Eliquis for afib Plan/VTE VTE Prophylaxis Ordered?: Yes VS, I&O, 24H, Fishbone Vital Signs/I&O Vital Signs Date Time Temp Pulse Resp B/P (MAP) Pulse Ox O2 Delivery O2 Flow Rate FiO2 02/09/19 14:00 97.1 73 17 130/67 (88) 93 I&O- Last 24 Hours up to 6 AM 02/09/19 06:00 Intake Total 1440 ml Output Total 4750 ml Balance -3310 ml Laboratory Data 24H LABS Laboratory Tests 2 02/08/19 20:58: Bedside Glucose (Misc Panel) 118H 02/09/19 05:35: Nucleated Red Blood Cells % (auto) 0.0, Anion Gap 8, Glomerular Filtration Rate 49.1, Blood Urea Nitrogen 38H, Creatinine 1.18, Sodium Level 139, Potassium Level 4.3, Chloride Level 103, Carbon Dioxide Level 28, Calcium Level 8.9, Phosphorus Level 4.8, Magnesium Level 2.6H 02/09/19 11:56: Bedside Glucose (Misc Panel) 127H 02/09/19 16:56: Bedside Glucose (Misc Panel) 111 CBC/BMP Laboratory Tests 02/09/19 05:35 Red Blood Count 4.65, Mean Corpuscular Volume 79.1 L, Mean Corpuscular Hemoglobin 23.0 L, Mean Corpuscular Hemoglobin Concent 29.1 L, Red Cell Distribution Width 16.2 H, Calcium Level 8.9 Microbiology Microbiology 02/01/19 Blood Culture - Final, Complete NO GROWTH AFTER 5 DAYS 02/01/19 Blood Culture - Final, Complete NO GROWTH AFTER 5 DAYS 02/06/19 Gram Stain - Final, Complete 02/06/19 Sputum Culture - Final, Complete 02/06/19 Respiratory Virus Panel (PCR) (TAMIKO) - Final, Complete Parainfluenza 3 (Piv3) SUSANNAH KWONG MD Feb 09, 2019 19:20
[2019-02-09 22:00] VITALS: BP 141/77
[2019-02-10] MEDS: IPRATROPIUM 0.5MG/ALBUTEROL 2.5MG INH SOL UD 3ML (DUONEB)(J7620) NEB SCH ×3 (04:00→11:28)
[2019-02-10 06:00] VITALS: BP 129/69
[2019-02-10 06:12] LABS: HEMATOCRIT 36.2 % (36.0-47.0); HEMOGLOBIN 10.6 g/dl (12.0-15.5); MEAN CORPUSCULAR HEMOGLOBIN 23.1 pg (27.0-33.0); MEAN CORPUSCULAR HGB CONC 29.3 g/dl (32.0-36.5); MEAN CORPUSCULAR VOLUME 78.9 fl (80.0-96.0); PLATELET COUNT, AUTOMATED 319 10^3/uL (150-450); RED BLOOD COUNT 4.59 10^6/uL (4.00-5.40); WHITE BLOOD COUNT 19.7 10^3/uL (4.0-10.0)
[2019-02-10 06:32] LABS: CALCIUM LEVEL 8.6 MG/DL (8.8-10.2); CREATININE FOR GFR 1.19 MG/DL (0.55-1.30); GLOMERULAR FILTRATION RATE 48.6 (>45); POTASSIUM SERUM 4.3 MEQ/L (3.5-5.1)
[2019-02-10] MEDS: ADVAIR HFA 115/21MCG INHALER INH SCH (07:56)
[2019-02-10] MEDS: OTEZLA 30 MG PO SCH (08:01)
[2019-02-10] MEDS: FUROSEMIDE 40 MG/4 ML VIAL (J1940) IV SCH (08:02)
[2019-02-10] MEDS: methylPREDNISolone INJ 40 MG/1 ML VIAL (J2920) IV SCH (08:02)
[2019-02-10 08:03] VITALS: BP 133/70
[2019-02-10] MEDS: OMEPRAZOLE 20 MG CAP PO SCH (08:03)
[2019-02-10] MEDS: VITAMIN D 1,000 INTERNATIONAL UNITS TABLET PO SCH (08:03)
[2019-02-10] MEDS: DIGOXIN 0.125 MG TAB PO SCH (08:03)
[2019-02-10] MEDS: ATENOLOL 25 MG TAB PO SCH (08:03)
[2019-02-10] MEDS: APIXABAN 5 MG TAB (ELIQUIS) PO SCH (08:03)
[2019-02-10] MEDS: POTASSIUM CHLORIDE 10 MEQ SR TABLET PO SCH (08:04)
[2019-02-10] MEDS: SPIRONOLACTONE 25 MG TAB PO SCH (08:04)
[2019-02-10] MEDS: guaiFENesin ER 600 MG TAB PO SCH (08:04)
[2019-02-10] MEDS: amLODIPine 5 MG TAB PO SCH (08:04)
[2019-02-10] MEDS: HumaLOG INSULIN (NovoLOG) PER UNIT SC SCH ×2 (08:04→12:00)
[2019-02-10] MEDS ORDERED: VENTAER INH (11:27)
--- NOTE | 2019-02-10 12:03 | DS.PDOC ---
Discharge Summary General Date of Admission Feb 01, 2019 at 04:59 Date of Discharge 02/10/19 Discharge Summary PROCEDURES PERFORMED DURING STAY: None ADMITTING DIAGNOSES: 1. COPD exacerbation 2. HTN 3. Pulmonary HTN 4. HLD 5. CKD Stage III 6. DVT on Eliquis DISCHARGE DIAGNOSES: 1. COPD exacerbation 2. HTN 3. Pulmonary HTN 4. HLD 5. CKD Stage III 6. DVT on Eliquis COMPLICATIONS/CHIEF COMPLAINT: Copd With Exacerbation. HISTORY OF PRESENT ILLNESS: "The patient is a 63-year-old female with a significant past medical history of atrial fibrillation (A-fib) on dig, atenolol, as well as Eliquis, chronic pulmonary obstructive disease (COPD), anemia diastolic congestive heart failure, hypertension, hyperlipidemia, chronic kidney disease (CKD) stage II, psoriasis. She presents to the emergency room with cough, wheezing, shortness of breath, subjective fevers and chills for 3-1/2 days. She tried to see her media intern Dr. Wong but was not able to do so. She denies any abdominal pain, constipation, diarrhea, urinary symptoms or any sick contacts. She started having more profound difficulty breathing over night, not responding to her nebulizers." HOSPITAL COURSE: Patient is a 63-year-old female with past medical history of COPD presented to ER with worsening shortness of breath and desaturations down to 89% with also exacerbation of atrial fibrillation with RVR. Patient has been getting nebulized treatments along with IV Solu-Medrol for more than one week with slow improvement. Patient currently states that she feels better closer her baseline at home and is ready to be discharged. We'll discharge patient home with tapered prednisone course and follow up with PCP. Medications refilled as requested. DISCHARGE MEDICATIONS: Please see below. ALLERGIES: Please see below. PHYSICAL EXAMINATION ON DISCHARGE: General: No acute distress, Alert Eyes: Normal sclera, EOMI, RAMIREZ HENT: Atraumatic, neck supple, moist mucous membranes Cardiovascular: Normal rate, normal rhythm. No murmurs appreciated. Pulmonary: Decrease air entry b/l, no wheezing appreciated. GI: Soft, nontender, nondistended Skin: Warm and dry Neuro: CN grossly intact. No focal deficits. Strengths equal b/l. Psych: oriented x 3 LABORATORY DATA: Please see below. IMAGING: VQ SCAN- Impression: Low probability of pulmonary embolus. CXR- Impression: Chronic hyperinflation, otherwise negative PA and lateral chest. ACTIVITY: [As tolerated]. DIET: regular diet DISCHARGE PLAN: Complete course of Prednisone taper. F/u with PCP within 1 week. DISPOSITION: home. ITEMS TO FOLLOWUP ON ON OUTPATIENT: 1. None DISCHARGE CONDITION: [Stable]. TIME SPENT ON DISCHARGE: Greater than 32 minutes. Vital Signs/I&Os Vital Signs Date Time Temp Pulse Resp B/P (MAP) Pulse Ox O2 Delivery O2 Flow Rate FiO2 02/10/19 08:03 68 02/10/19 08:03 133/70 02/10/19 06:00 97.3 18 97 I&O- Last 24 Hours up to 6 AM 02/10/19 06:00 Intake Total 2121 ml Output Total 3100 ml Balance -979 ml Laboratory Data Labs 24H Laboratory Tests 2 02/09/19 11:56: Bedside Glucose (Misc Panel) 127H 02/09/19 16:56: Bedside Glucose (Misc Panel) 111 02/09/19 19:54: Bedside Glucose (Misc Panel) 171H 02/10/19 05:55: Nucleated Red Blood Cells % (auto) 0.0, Anion Gap 6L, Glomerular Filtration Rate 48.6, Blood Urea Nitrogen 34H, Creatinine 1.19, Sodium Level 139, Potassium Level 4.3, Chloride Level 105, Carbon Dioxide Level 28, Calcium Level 8.6L CBC/BMP Laboratory Tests 02/10/19 05:55 Red Blood Count 4.59, Mean Corpuscular Volume 78.9 L, Mean Corpuscular Hem oglobin 23.1 L, Mean Corpuscular Hemoglobin Concent 29.3 L, Red Cell Distribution Width 16.2 H, Calcium Level 8.6 L FSBS Laboratory Tests Test 02/09/19 11:56 02/09/19 16:56 02/09/19 19:54 Range/Units Bedside Glucose (Misc Panel) 127 111 171 80-115 MG/DL Microbiology Microbiology 02/01/19 Blood Culture - Final, Complete NO GROWTH AFTER 5 DAYS 02/01/19 Blood Culture - Final, Complete NO GROWTH AFTER 5 DAYS 02/06/19 Gram Stain - Final, Complete 02/06/19 Sputum Culture - Final, Complete 02/06/19 Respiratory Virus Panel (PCR) (TAMIKO) - Final, Complete Parainfluenza 3 (Piv3) Discharge Medications Scheduled Amlodipine Besylate (Amlodipine Besylate) 5 Mg Tab, 5 MG PO DAILY, (Reported) Apixaban (Eliquis) 5 Mg Tab, 5 MG PO BID, (Reported) Apremilast (Otezla) 30 Mg Tab, 30 MG PO BID, (Reported) Atenolol (Atenolol) 25 Mg Tab, 25 MG PO DAILY, (Reported) Cholecalciferol (Vitamin D3) (Vitamin D3) 1,000 Unit Tab, 1,000 UNIT PO DAILY, (Reported) Digoxin (Digoxin) 125 Mcg Tab, 125 MCG PO DAILY, (Reported) Furosemide (Furosemide) 40 Mg Tab, 40 MG PO BID, (Reported) TAKES AT 0600 AND 1800 Omeprazole (Omeprazole) 20 Mg Cap, 20 MG PO DAILY, (Reported) Potassium Chloride (Klor-Con M10) 10 Meq Tabcr, 20 MEQ PO BID, (Reported) Spironolactone (Spironolactone) 25 Mg Tab, 25 MG PO DAILY, (Reported) Scheduled PRN Albuterol Sulfate (Ventolin Hfa) 108 Mcg/Act Aer, 2 PUFFS INH Q4H PRN for SHORTNESS OF BREATH Budesonide/Formoterol (Symbicort 160-4.5 Mcg Inhaler) 60 Puff/Inhaler Aers, 2 PUFF INH BID PRN for SHORTNESS OF BREATH, (Reported) Fluocinonide (Fluocinonide) 0.05 % Magda, 1 DOSE EXT BID PRN for RASH, (Reported) USES ON HEAD FOR PSORASIS Ipratropium/Albuterol Sulfate (Iprat-Albut 0.5-3(2.5) mg/3 ml) 1 Magda Magda, 3 ML INH QID PRN for SHORTNESS OF BREATH, (Reported) Omeprazole (Omeprazole) 20 Mg Cap, 20 MG PO DAILY PRN for ACID REFLUX, (Reported) Triamcinolone Acet (Triamcinolone Acetonide 0.1% Oint) 1 Dose/80 Gm Oint, 1 DOSE TOP BID PRN for RASH, (Reported) USES ON LEGS FOR PSORASIS Allergies Coded Allergies: erythromycin base (Verified Allergy, Unknown, 02/01/19) SUSANNAH KWONG MD Feb 10, 2019 12:03
== END 2019-02-10 12:19 | disposition home or self-care (01) | DRG 140 ==
LOC: M ED 01:23 → M ED INP 04:59 → M MSPAV 11:44
PROVIDERS: ADMIT Internal Medicine; ATTEND Student in an Organized Health Care Education/Training Program
DX: J44.1 Chronic obstructive pulmonary disease with (acute) exacerbation (principal); I13.0 Hypertensive heart and chronic kidney disease with heart failure and stage 1 through stage 4 chronic kidney disease, or unspecified chronic kidney disease; I27.20 Pulmonary hypertension, unspecified; I50.32 Chronic diastolic (congestive) heart failure; N18.3 Chronic kidney disease, stage 3 (moderate); I48.0 Paroxysmal atrial fibrillation; D64.9 Anemia, unspecified; E78.5 Hyperlipidemia, unspecified; J20.4 Acute bronchitis due to parainfluenza virus; J44.0 Chronic obstructive pulmonary disease with (acute) lower respiratory infection; L40.9 Psoriasis, unspecified; Z79.01 Long term (current) use of anticoagulants; Z79.899 Other long term (current) drug therapy; Z87.891 Personal history of nicotine dependence; Z88.1 Allergy status to other antibiotic agents

== ENCOUNTER → 2019-05-11 | Outpatient (CLI) | payer MEDICARE, OTHER ==
[~2019-05-11] MED LIST changes: +AMLO5TAB6 PO; +ATEN25TA PO; +DIGO0.12 PO; +FLUO1SOL EXT; +KLOR10TA76 PO; -OMEP20CA3 PO; +OMEP20CA4 PO; +OTEZ1TAB3 PO; +TRIA1OI80 TOP
[2019-05-11 12:29] LABS: CALCIUM LEVEL 9.5 MG/DL (8.8-10.2); CREATININE FOR GFR 1.16 MG/DL (0.55-1.30); GLOMERULAR FILTRATION RATE 49.9 (>45)
== END ==
LOC: M LAB 11:41
PROVIDERS: ATTEND Internal Medicine Cardiovascular Disease
DX: I48.91 Unspecified atrial fibrillation (principal)

== ENCOUNTER 2019-07-05 09:13 | Emergency (ER) | payer MEDICARE ==
[~2019-07-05] VITALS: Ht 167.6 cm; Wt 90.0 kg
[2019-07-05] MEDS ORDERED: PROAAER10 (10:21)
[2019-07-05] MEDS ORDERED: COSE1INJ4 (10:21)
--- NOTE | 2019-07-05 10:43 | REP ---
Clinical: Acute chest pain . Comparison: 02/07/2019 . Technique: PA and lateral. Findings: The mediastinum and cardiac silhouette are normal. The lung stanley are clear and without acute consolidation, effusion, or pneumothorax. The skeletal structures are intact and normal. Impression: 1. No acute cardiopulmonary process. Electronically Signed by Jeferson Mora MD 07/05/2019 10:35 A
[2019-07-05] MEDS ORDERED: IPRATROPIUM 0.5MG/ALBUTEROL 2.5MG INH SOL UD 3ML (DUONEB)(J7620) NEB ONE ×3 (10:45→13:00)
[2019-07-05 11:16] LABS: BASO % 0.4 % (0.0-1.0); EOS # 0.3 10^3/uL (0.0-0.5); EOS % 3.2 % (0.0-3.0); HEMATOCRIT 32.7 % (36.0-47.0); HEMOGLOBIN 9.6 g/dl (12.0-15.5); LYMPH % 10.7 % (24.0-44.0); MEAN CORPUSCULAR HEMOGLOBIN 23.2 pg (27.0-33.0); MEAN CORPUSCULAR HGB CONC 29.4 g/dl (32.0-36.5); MEAN CORPUSCULAR VOLUME 79.2 fl (80.0-96.0); MONO % 10.6 % (0.0-5.0); NEUTROPHILS # 7.1 10^3/uL (1.5-8.5); NEUTROPHILS % 74.6 % (36.0-66.0); PLATELET COUNT, AUTOMATED 235 10^3/uL (150-450); RED BLOOD COUNT 4.13 10^6/uL (4.00-5.40); WHITE BLOOD COUNT 9.5 10^3/uL (4.0-10.0)
[2019-07-05 11:24] LABS: INR 1.41
[2019-07-05 11:25] LABS: PARTIAL THROMBOPLASTIN TIME 27.5 SECONDS (25.0-38.4)
[2019-07-05] MEDS ORDERED: methylPREDNISolone INJ 125 MG/2 ML VIAL (J2930) IV ONE (11:45)
[2019-07-05 11:50] LABS: ALBUMIN 3.2 GM/DL (3.2-5.2); ALT/SGPT 29 U/L (12-78); BILIRUBIN,DIRECT 0.1 MG/DL (0.0-0.2); BILIRUBIN,TOTAL 0.4 MG/DL (0.2-1.0); BLOOD UREA NITROGEN 12 MG/DL (7-18); CALCIUM LEVEL 9.1 MG/DL (8.8-10.2); CARBON DIOXIDE LEVEL 29 MEQ/L (21-32); CHLORIDE LEVEL 101 MEQ/L (98-107); CPK CREATINE PHOSPHOKINASE 42 U/L (26-192); CREATININE FOR GFR 1.16 MG/DL (0.55-1.30); FREE T4 1.06 NG/DL (0.76-1.46); GLOMERULAR FILTRATION RATE 49.9 (>45); GLUCOSE, FASTING 96 MG/DL (70-100); LIPASE 62 U/L (73-393); MB/CK RELATIVE INDEX 2.38 (< OR =4); NT-PRO BNP 251 PG/ML (<125); POTASSIUM SERUM 4.8 MEQ/L (3.5-5.1); SODIUM LEVEL 137 MEQ/L (136-145); TOTAL PROTEIN 6.3 GM/DL (6.4-8.2); TROPONIN I < 0.02 NG/ML (< 0.10)
[2019-07-05 14:18] VITALS: O2SAT 92
[2019-07-05] MEDS ORDERED: PRED20TA PO (14:34)
[2019-07-05 14:55] VITALS: BP 140/68
--- NOTE | 2019-07-06 16:47 | ECGEPIP ---
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
== END 2019-07-05 14:57 | disposition home or self-care (01) ==
LOC: M ED 09:13
DX: J44.1 Chronic obstructive pulmonary disease with (acute) exacerbation (principal); J06.9 Acute upper respiratory infection, unspecified; I48.91 Unspecified atrial fibrillation; I50.9 Heart failure, unspecified; D64.9 Anemia, unspecified; N18.9 Chronic kidney disease, unspecified; L40.9 Psoriasis, unspecified; Z87.891 Personal history of nicotine dependence; Z88.1 Allergy status to other antibiotic agents; Z79.899 Other long term (current) drug therapy; Z79.01 Long term (current) use of anticoagulants
CPT/HCPCS: 71046; 80048; 80076; 82550; 82553; 83690; 83880; 84439; 84443; 84484; 85025; 85610; 85730; 93005; 93041; 94640; 94760; 96374; 99284; J2930

== ENCOUNTER → 2019-08-04 | Outpatient (REF) | payer MEDICARE ==
[~2019-08-04] MED LIST changes: +COSE1INJ4; +PROAAER10
== END ==
LOC: M SFHCPLAZ 16:59
PROVIDERS: ATTEND Dermatology
DX: D36.7 Benign neoplasm of other specified sites (principal)

== ENCOUNTER → 2019-08-19 | Outpatient (CLI) | payer MEDICARE ==
--- NOTE | 2019-08-19 10:49 | REP ---
Two-view chest: Indication: Intermittent dyspnea. Comparison: 07/05/2019. Findings: There is a new small area of plate-like atelectasis versus scarring within the right lower lobe. No pleural effusions or pneumothorax are present. The cardiac silhouette is unremarkable. There is no evidence of airspace disease. Impression: Small area of scarring or atelectasis within the right lower lobe. Otherwise unremarkable. Electronically Signed by Jose Hanson DO 08/19/2019 10:41 A
--- NOTE | 2019-08-19 10:58 | REP ---
Six views right knee: 08/20/2019. Indication: Right knee pain. Comparison: 10/13/2012. Findings: Osteoarthritic sequelae and considerable narrowing of the medial tibial/femoral compartment is present. There is no acute fracture. No joint effusion is detected. No destructive osseous lesions are detected. Impression: Significant osteoarthritic sequelae particularly medially. This is new compared to 2011. Electronically Signed by Jose Hanson DO 08/19/2019 10:50 A
[2019-08-19 11:13] LABS: HEMATOCRIT 34.5 % (36.0-47.0); MEAN CORPUSCULAR HEMOGLOBIN 23.6 pg (27.0-33.0); MEAN CORPUSCULAR VOLUME 81.4 fl (80.0-96.0); PLATELET COUNT, AUTOMATED 291 10^3/uL (150-450); RED BLOOD COUNT 4.24 10^6/uL (4.00-5.40)
[2019-08-19 11:50] LABS: ALBUMIN 3.5 GM/DL (3.2-5.2); BILIRUBIN,TOTAL 0.3 MG/DL (0.2-1.0); CALCIUM LEVEL 9.6 MG/DL (8.8-10.2); CHOLESTEROL RISK RATIO 4.944 (<5); CREATININE FOR GFR 1.22 MG/DL (0.55-1.30); GLOMERULAR FILTRATION RATE 47.1 (>45); POTASSIUM SERUM 4.5 MEQ/L (3.5-5.1); THYROID STIMULATING HORMONE 2.14 uIU/ML (0.358-3.740); TOTAL PROTEIN 7.5 GM/DL (6.4-8.2)
[2019-08-19 11:51] LABS: TOTAL 25(OH) VITAMIN D 48.2 NG/ML (30.0-100.0)
[2019-08-19 12:32] LABS: HEMOGLOBIN A1c 5.7 %
--- NOTE | 2019-08-19 12:52 | ECGEPIP ---
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
--- NOTE | 2019-08-19 13:01 | REPMRS ---
Patient History The patient states she has not had a clinical breast exam in over a year. Patient is postmenopausal. Family history of lip cancer in maternal grandfather. Digital Mammo Screening Bilat: August 19, 2019 - Exam #: [id number] Bilateral CC and MLO view(s) were taken. Technologist: Madisyn Mueller Technologist Prior study comparison: April 27, 2012, bilateral digital mammo screening bilat performed at [facility]. April 21, 2011, bilateral bilat screen digital mammo performed at [facility]. October 16, 2010, bilateral bilat screen digital mammo performed at [facility]. FINDINGS: There are scattered fibroglandular densities. There has been no change in the appearance of the mammogram from the prior studies. There is a mild amount of scattered fibroglandular density which is fairly symmetric. There is no interval development of dominant mass, architectural distortion, or grouped microcalcification suggestive of malignancy. 3-D tomosynthesis shows no additional findings. Assessment: BI-RADS/ACR category 1 mammogram. Negative Mammogram. Recommendation Routine screening mammogram of both breasts in 1 year (for women over age 40). This patient's Lifetime Breast Cancer Risk is estimated at 5.8 %. This mammogram was interpreted with the aid of an FDA-approved computer-aided dectection system. Electronically Signed By: Steve Tracy MD 08/19/19 1300
== END ==
LOC: M RAD 09:41
PROVIDERS: ATTEND Family Medicine
DX: Z12.31 Encounter for screening mammogram for malignant neoplasm of breast (principal); R53.83 Other fatigue; J44.9 Chronic obstructive pulmonary disease, unspecified; E03.9 Hypothyroidism, unspecified; Z79.899 Other long term (current) drug therapy; M25.561 Pain in right knee; M79.604 Pain in right leg

== ENCOUNTER → 2019-09-26 | Outpatient (CLI) | payer MEDICARE ==
[2019-09-26 14:15] LABS: BASO # 0.1 10^3/uL (0.0-0.2); BASO % 0.5 % (0.0-1.0); EOS # 0.7 10^3/uL (0.0-0.5); EOS % 4.9 % (0.0-3.0); HEMATOCRIT 37.8 % (36.0-47.0); HEMOGLOBIN 11.5 g/dl (12.0-15.5); LYMPH # 1.1 10^3/uL (1.5-5.0); LYMPH % 8.3 % (24.0-44.0); MEAN CORPUSCULAR HEMOGLOBIN 25.6 pg (27.0-33.0); MEAN CORPUSCULAR HGB CONC 30.4 g/dl (32.0-36.5); MONO % 7.2 % (0.0-5.0); NEUTROPHILS # 10.4 10^3/uL (1.5-8.5); NEUTROPHILS % 78.6 % (36.0-66.0); PLATELET COUNT, AUTOMATED 332 10^3/uL (150-450); WHITE BLOOD COUNT 13.3 10^3/uL (4.0-10.0)
[2019-09-26 14:57] LABS: ALBUMIN 3.4 GM/DL (3.2-5.2); PERCENT SATURATION 5.3 % (13.2-45.0); THYROID STIMULATING HORMONE 1.34 uIU/ML (0.358-3.740)
== END ==
LOC: M LAB 13:15
PROVIDERS: ATTEND Orthopaedic Surgery
DX: Z86.79 Personal history of other diseases of the circulatory system (principal); D50.9 Iron deficiency anemia, unspecified; E07.9 Disorder of thyroid, unspecified

== ENCOUNTER → 2019-11-08 | Outpatient (CLI) | payer MEDICARE ==
[~2019-11-08] MED LIST changes: -DIGO0.12 PO; +DIGO0.123 PO; +OMEP-172 PO; -OMEP20CA4 PO
[2019-11-08 09:46] LABS: HEMATOCRIT 41.5 % (36.0-47.0); HEMOGLOBIN 12.7 g/dl (12.0-15.5); MEAN CORPUSCULAR HEMOGLOBIN 26.8 pg (27.0-33.0); MEAN CORPUSCULAR HGB CONC 30.6 g/dl (32.0-36.5); MEAN CORPUSCULAR VOLUME 87.6 fl (80.0-96.0); PLATELET COUNT, AUTOMATED 237 10^3/uL (150-450); RED BLOOD COUNT 4.74 10^6/uL (4.00-5.40); WHITE BLOOD COUNT 8.7 10^3/uL (4.0-10.0)
[2019-11-08 10:08] LABS: INR 1.36; PROTHROMBIN TIME 16.5 SECONDS (11.8-14.0)
[2019-11-08 11:52] LABS: ALBUMIN 3.3 GM/DL (3.2-5.2); BILIRUBIN,TOTAL 0.8 MG/DL (0.2-1.0); CALCIUM LEVEL 9.5 MG/DL (8.8-10.2); CHOLESTEROL RISK RATIO 5.434 (<5); CREATININE FOR GFR 1.26 MG/DL (0.55-1.30); GLOMERULAR FILTRATION RATE 45.4 (>45); POTASSIUM SERUM 4.3 MEQ/L (3.5-5.1); THYROID STIMULATING HORMONE 1.11 uIU/ML (0.358-3.740); TOTAL PROTEIN 6.9 GM/DL (6.4-8.2)
[2019-11-08 15:22] LABS: HEMOGLOBIN A1c 5.7 %
--- NOTE | 2019-11-08 16:39 | REP ---
CHEST, TWO VIEWS: COMPARISON: 08/19/2019 There is mild cardiomegaly. There is no acute infiltrate. There is some tortuosity of the thoracic aorta. The mediastinal silhouette is unchanged. Loop recorder is noted. There are mild degenerative changes of the spine. IMPRESSION: Mild cardiomegaly. No acute pulmonary disease. Electronically Signed by Martinez Thomas MD 11/09/2019 09:53 A
== END ==
LOC: M LAB 09:00
PROVIDERS: ATTEND Family Medicine
DX: I10 Essential (primary) hypertension (principal); Z79.01 Long term (current) use of anticoagulants

== ENCOUNTER → 2019-11-16 | Outpatient (CLI) | payer MEDICARE ==
[~2019-11-16] MED LIST changes: -OMEP-172 PO; +OMEP1CAP73 PO
[2019-11-16 14:04] LABS: HEMATOCRIT 44.5 % (36.0-47.0); HEMOGLOBIN 13.7 g/dl (12.0-15.5); MEAN CORPUSCULAR HEMOGLOBIN 26.8 pg (27.0-33.0); MEAN CORPUSCULAR HGB CONC 30.8 g/dl (32.0-36.5); MEAN CORPUSCULAR VOLUME 86.9 fl (80.0-96.0); PLATELET COUNT, AUTOMATED 288 10^3/uL (150-450); RED BLOOD COUNT 5.12 10^6/uL (4.00-5.40); WHITE BLOOD COUNT 10.2 10^3/uL (4.0-10.0)
== END ==
LOC: M LAB 12:59
PROVIDERS: ATTEND Dermatology
DX: Z79.899 Other long term (current) drug therapy (principal)

== ENCOUNTER 2019-11-30 10:00 | Outpatient (RCR) | payer MEDICARE | END 2019-12-02 | LOC: M PT 10:00 | PROVIDERS: ATTEND Orthopaedic Surgery | DX: Z96.651 Presence of right artificial knee joint (principal) ==

== ENCOUNTER → 2019-12-14 | Outpatient (CLI) | payer MEDICARE ==
[2019-12-14 13:05] LABS: HEMATOCRIT 40.9 % (36.0-47.0); HEMOGLOBIN 12.5 g/dl (12.0-15.5); MEAN CORPUSCULAR HEMOGLOBIN 27.1 pg (27.0-33.0); MEAN CORPUSCULAR HGB CONC 30.6 g/dl (32.0-36.5); MEAN CORPUSCULAR VOLUME 88.7 fl (80.0-96.0); PLATELET COUNT, AUTOMATED 452 10^3/uL (150-450); RED BLOOD COUNT 4.61 10^6/uL (4.00-5.40); WHITE BLOOD COUNT 10.1 10^3/uL (4.0-10.0)
[2019-12-14 13:33] LABS: ALBUMIN 3.6 GM/DL (3.2-5.2); BILIRUBIN,TOTAL 0.4 MG/DL (0.2-1.0); CALCIUM LEVEL 9.6 MG/DL (8.8-10.2); CREATININE FOR GFR 1.51 MG/DL (0.55-1.30); GLOMERULAR FILTRATION RATE 36.8 (>45); POTASSIUM SERUM 4.3 MEQ/L (3.5-5.1); TOTAL PROTEIN 7.1 GM/DL (6.4-8.2)
== END ==
LOC: M LAB 11:42
PROVIDERS: ATTEND Dermatology
DX: Z79.899 Other long term (current) drug therapy (principal)
CPT/HCPCS: 36415; 80053; 85027; G0463

== ENCOUNTER 2019-12-28 10:30 | Outpatient (RCR) | payer MEDICARE | END 2019-12-31 | LOC: M PT 10:30 | PROVIDERS: ATTEND Orthopaedic Surgery | DX: Z47.1 Aftercare following joint replacement surgery (principal); Z96.651 Presence of right artificial knee joint ==

== ENCOUNTER → 2020-01-11 | Outpatient (CLI) | payer MEDICARE ==
[2020-01-11 12:52] LABS: HEMATOCRIT 41.3 % (36.0-47.0); HEMOGLOBIN 13.1 g/dl (12.0-15.5); MEAN CORPUSCULAR HEMOGLOBIN 27.9 pg (27.0-33.0); MEAN CORPUSCULAR HGB CONC 31.7 g/dl (32.0-36.5); MEAN CORPUSCULAR VOLUME 88.1 fl (80.0-96.0); PLATELET COUNT, AUTOMATED 308 10^3/uL (150-450); RED BLOOD COUNT 4.69 10^6/uL (4.00-5.40); WHITE BLOOD COUNT 9.9 10^3/uL (4.0-10.0)
[2020-01-11 13:14] LABS: ALBUMIN 3.7 GM/DL (3.2-5.2); BILIRUBIN,TOTAL 0.3 MG/DL (0.2-1.0); CALCIUM LEVEL 9.9 MG/DL (8.8-10.2); CREATININE FOR GFR 1.19 MG/DL (0.55-1.30); GLOMERULAR FILTRATION RATE 48.5 (>45); POTASSIUM SERUM 4.5 MEQ/L (3.5-5.1); TOTAL PROTEIN 7.3 GM/DL (6.4-8.2)
== END ==
LOC: M LAB 11:47
PROVIDERS: ATTEND Dermatology
DX: Z79.899 Other long term (current) drug therapy (principal)

== ENCOUNTER → 2020-01-17 | Outpatient (CLI) | payer MEDICARE | LOC: M LAB 09:59 | PROVIDERS: ATTEND Dermatology | DX: Z79.899 Other long term (current) drug therapy (principal) ==

== ENCOUNTER → 2020-03-28 | Outpatient (CLI) | payer MEDICARE ==
--- NOTE | 2020-03-28 12:28 | REP ---
CHEST TWO VIEWS: COMPARISON: 11/08/2019 Two views of the chest are performed. There is no acute infiltrate. The heart is upper limits of normal in size to slightly enlarged. There is mild tortuosity of the thoracic aorta. The mediastinal silhouette is unchanged. There are mild degenerative changes of the spine. Loop recorder device is again noted. IMPRESSION: Stable exam with no evidence of acute pulmonary disease. Electronically Signed by Martinez Thomas MD 03/28/2020 12:31 P
[2020-03-28 13:12] LABS: HEMATOCRIT 40.3 % (36.0-47.0); HEMOGLOBIN 12.8 g/dl (12.0-15.5); MEAN CORPUSCULAR HEMOGLOBIN 28.9 pg (27.0-33.0); MEAN CORPUSCULAR HGB CONC 31.8 g/dl (32.0-36.5); PLATELET COUNT, AUTOMATED 200 10^3/uL (150-450); RED BLOOD COUNT 4.43 10^6/uL (4.00-5.40); WHITE BLOOD COUNT 8.8 10^3/uL (4.0-10.0)
[2020-03-28 13:26] LABS: INR 1.3; PROTHROMBIN TIME 15.9 SECONDS (11.8-14.0)
[2020-03-28 13:47] LABS: ALBUMIN 3.4 GM/DL (3.2-5.2); ALT/SGPT 20 U/L (12-78); BILIRUBIN,TOTAL 0.9 MG/DL (0.2-1.0); BLOOD UREA NITROGEN 14 MG/DL (7-18); CALCIUM LEVEL 9.3 MG/DL (8.8-10.2); CARBON DIOXIDE LEVEL 30 MEQ/L (21-32); CHLORIDE LEVEL 102 MEQ/L (98-107); CHOLESTEROL LEVEL 316 MG/DL (<200); CHOLESTEROL RISK RATIO 4.861 (<5); CREATININE FOR GFR 0.96 MG/DL (0.55-1.30); GLOMERULAR FILTRATION RATE > 60.0 (>45); GLUCOSE, FASTING 94 MG/DL (70-100); HDL CHOLESTEROL 65 MG/DL (>40); LDL CHOLESTEROL 198 MG/DL (<100); NON-HDL-C 251 MG/DL; POTASSIUM SERUM 4.1 MEQ/L (3.5-5.1); SODIUM LEVEL 137 MEQ/L (136-145); TOTAL PROTEIN 7.1 GM/DL (6.4-8.2); TRIGLYCERIDES LEVEL 265 MG/DL (<150)
--- NOTE | 2020-03-28 22:00 | ECGEPIP ---
[facility] Test Date: 2020-03-28 Pat Name: PALAK MANJARREZ Department: Room: - Gender: Female Associate Team Physician: TORIBIO : 1955 Requested By: Lucas Garcia Order Number: [id number] Reading MD: Sonny Mcintosh Measurements Intervals [place] Rate: 72 P: 77 CT: 189 QRS: 60 QRSD: 95 T: 49 QT: 398 QTc: 436 Interpretive Statements SINUS RHYTHM POSSIBLE RIGHT VENTRICULAR CONDUCTION DELAY Electronically Signed on 03-28-2020 22:00:14 EDT by Sonny Mcintosh
== END ==
LOC: M LAB 11:49
PROVIDERS: ATTEND Family Medicine
DX: Z01.812 Encounter for preprocedural laboratory examination (principal); I11.0 Hypertensive heart disease with heart failure; I50.9 Heart failure, unspecified

== ENCOUNTER → 2020-04-22 | Outpatient (CLI) | payer MEDICARE ==
[~2020-04-22] MED LIST changes: +METO100T5 PO; -PROAAER10; +PROAAER10 INH; +SIMV20TA22 PO
== END ==
LOC: M LABSMTC 10:02
PROVIDERS: ATTEND Anesthesiology
DX: Z03.818 Encounter for observation for suspected exposure to other biological agents ruled out (principal)
CPT/HCPCS: C9803; U0003

== ENCOUNTER 2020-04-25 07:52 | Day surgery (SDC) | payer MEDICARE ==
[~2020-04-25] VITALS: Ht 163.8 cm; Wt 82.1 kg
[~2020-04-25 07:52] MED LIST changes: +LIDOCAINE 2% 100MG/5ML SDV (FOR ANES.) As Ordered ONE; +NS 1,000 ML IV ONE; +propofoL 200 MG/20 ML VIAL As Ordered ONE
--- NOTE | 2020-04-25 09:00 | ROOR ---
Patient Name: Prachi Fields Procedure Date: 04/25/2020 8:45 AM Date of : 1955 Age: 65 Room: [facility] Gender: Female Note Status: Finalized Procedure: Upper Endoscopy + Biopsies Indications: Unexplained iron deficiency anemia, Occult blood in stool Providers: Sloan Soliman MD Referring MD: CASSIE COVINGTON MD Requesting Provider: Medicines: Monitored Anesthesia Care Complications: No immediate complications. Procedure: Pre-Anesthesia Assessment: - The heart rate, respiratory rate, oxygen saturations, blood pressure, adequacy of pulmonary ventilation, and response to care were monitored throughout the procedure. The Endoscope was introduced through the mouth, and advanced to the second part of duodenum. The upper GI endoscopy was accomplished without difficulty. The patient tolerated the procedure well. Findings: The Z-line was regular and was found 40 cm from the incisors. No other significant abnormalities were identified in a careful examination of the stomach. Biopsies were taken with a cold forceps in the gastric antrum for Helicobacter pylori testing. The exam of the duodenum was otherwise normal. Biopsies for histology were taken with a cold forceps in the first portion of the duodenum for evaluation of celiac disease. The exam was otherwise without abnormality. Impression: - Z-line regular, 40 cm from the incisors. - The examination was otherwise normal. - Biopsies were taken with a cold forceps for Helicobacter pylori testing. - Biopsies were taken with a cold forceps for evaluation of celiac disease. - The examination was otherwise normal. Recommendation: - Patient has a contact number available for emergencies. The signs and symptoms of potential delayed complications were discussed with the patient. Return to normal activities tomorrow. Written discharge instructions were provided to the patient. - High fiber diet. - Discharge patient to home. - Continue present medications. - Await pathology results. - Telephone GI clinic for pathology results in 1 week. - Return to referring physician. - The findings and recommendations were discussed with the patient. Sloan Soliman MD Sloan Soliman MD 04/25/2020 9:00:06 AM Electronically signed by Sloan Soliman MD Number of Addenda: 0 Note Initiated On: 04/25/2020 8:45 AM Estimated Blood Loss: Estimated blood loss: none.
--- NOTE | 2020-04-25 09:32 | ROOR ---
Patient Name: Prachi Fields Procedure Date: 04/25/2020 8:46 AM Date of : 1955 Age: 65 Room: [facility] Gender: Female Note Status: Finalized Procedure: Total Colonoscopy to Cecum + Cold + Hot Snare Polypectomy + Hemoclips Indications: Gastrointestinal occult blood loss, Unexplained iron deficiency anemia Providers: Sloan Soliman MD Referring MD: CASSIE COVINGTON MD Requesting Provider: Medicines: Monitored Anesthesia Care Complications: No immediate complications. Procedure: Pre-Anesthesia Assessment: - The heart rate, respiratory rate, oxygen saturations, blood pressure, adequacy of pulmonary ventilation, and response to care were monitored throughout the procedure. The Colonoscope was introduced through the anus and advanced to the terminal ileum, with identification of the appendiceal orifice and IC valve. The colonoscopy was performed without difficulty. The patient tolerated the procedure well. The quality of the bowel preparation was excellent. Findings: The perianal and digital rectal examinations were normal. Non-bleeding internal hemorrhoids were found during retroflexion. The hemorrhoids were small and Grade I (internal hemorrhoids that do not prolapse). Multiple small and large-mouthed diverticula were found in the recto-sigmoid colon, sigmoid colon and descending colon. A large polyp was found at 50 cm proximal to the anus. The polyp was semi-pedunculated. The polyp was removed with a hot snare. Resection and retrieval were complete. To prevent bleeding after the polypectomy, one hemostatic clip was successfully placed (MR conditional). There was no bleeding at the end of the procedure. A small polyp was found in the transverse colon. The polyp was sessile. The polyp was removed with a cold snare. Resection and retrieval were complete. To prevent bleeding after the polypectomy, one hemostatic clip was successfully placed (MR conditional). There was no bleeding at the end of the procedure. A medium polyp was found in the ascending colon. The polyp was sessile. The polyp was removed with a cold snare. Resection and retrieval were complete. To prevent bleeding after the polypectomy, one hemostatic clip was successfully placed (MR conditional). There was no bleeding at the end of the procedure. A diminutive polyp was found in the cecum. The polyp was flat. The polyp was removed with a cold biopsy forceps. Resection and retrieval were complete. The exam was otherwise without abnormality. The terminal ileum appeared normal. Impression: - Non-bleeding internal hemorrhoids. - Diverticulosis in the recto-sigmoid colon, in the sigmoid colon and in the descending colon. - One large polyp at 50 cm proximal to the anus, removed with a hot snare. Resected and retrieved. Clip (MR conditional) was placed. - One small polyp in the transverse colon, removed with a cold snare. Resected and retrieved. Clip (MR conditional) was placed. - One medium polyp in the ascending colon, removed with a cold snare. Resected and retrieved. Clip (MR conditional) was placed. - One diminutive polyp in the cecum, removed with a cold biopsy forceps. Resected and retrieved. - The examination was otherwise normal. - The examined portion of the ileum was normal. - The exam was otherwise normal to the cecum. Recommendation: - Patient has a contact number available for emergencies. The signs and symptoms of potential delayed complications were discussed with the patient. Return to normal activities tomorrow. Written discharge instructions were provided to the patient. - High fiber diet. - Discharge patient to home. - Continue present medications. - Await pathology results. - Telephone GI clinic for pathology results in 1 week. - Repeat colonoscopy for surveillance based on pathology results. - Return to referring physician. - Resume Eliquis (apixaban) at prior dose today. - The findings and recommendations were discussed with the patient's family. Sloan Soliman MD Sloan Soliman MD 04/25/2020 9:32:31 AM Electronically signed by Sloan Soliman MD Number of Addenda: 0 Note Initiated On: 04/25/2020 8:46 AM Estimated Blood Loss: Estimated blood loss: none.
[2020-04-25 10:05] VITALS: BP 141/64
== END 2020-04-25 10:08 | disposition home or self-care (01) ==
LOC: M OPP 07:52
PROVIDERS: ATTEND Internal Medicine Gastroenterology
DX: D12.2 Benign neoplasm of ascending colon (principal); D12.0 Benign neoplasm of cecum; D12.3 Benign neoplasm of transverse colon; K64.0 First degree hemorrhoids; R19.5 Other fecal abnormalities; D50.9 Iron deficiency anemia, unspecified; K57.30 Diverticulosis of large intestine without perforation or abscess without bleeding; I48.91 Unspecified atrial fibrillation; Z79.899 Other long term (current) drug therapy; Z88.0 Allergy status to penicillin; Z86.14 Personal history of Methicillin resistant Staphylococcus aureus infection

== ENCOUNTER → 2020-07-16 | Outpatient (CLI) | payer MEDICARE ==
[~2020-07-16] MED LIST changes: +AMLO1TAB24; +AMLO1TAB24 PO; -AMLO5TAB6; -AMLO5TAB6 PO; -LIDOCAINE 2% 100MG/5ML SDV (FOR ANES.) As Ordered ONE; -NS 1,000 ML IV ONE; -propofoL 200 MG/20 ML VIAL As Ordered ONE
[2020-07-16 10:39] LABS: BASO % 0.6 % (0.0-1.0); EOS # 0.2 10^3/uL (0.0-0.5); EOS % 3.1 % (0.0-3.0); HEMATOCRIT 39.7 % (36.0-47.0); HEMOGLOBIN 12.6 g/dl (12.0-15.5); MEAN CORPUSCULAR HEMOGLOBIN 30.6 pg (27.0-33.0); MEAN CORPUSCULAR HGB CONC 31.7 g/dl (32.0-36.5); MEAN CORPUSCULAR VOLUME 96.4 fl (80.0-96.0); MONO # 0.7 10^3/uL (0.0-0.8); MONO % 9.3 % (0.0-5.0); NEUTROPHILS # 5.1 10^3/uL (1.5-8.5); NEUTROPHILS % 72.6 % (36.0-66.0); PLATELET COUNT, AUTOMATED 180 10^3/uL (150-450); RED BLOOD COUNT 4.12 10^6/uL (4.00-5.40)
[2020-07-16 11:00] LABS: ALBUMIN 3.4 GM/DL (3.2-5.2); BILIRUBIN,TOTAL 0.6 MG/DL (0.2-1.0); CALCIUM LEVEL 9.2 MG/DL (8.8-10.2); CREATININE FOR GFR 1.05 MG/DL (0.55-1.30); GLOMERULAR FILTRATION RATE 55.8 (>45); POTASSIUM SERUM 3.8 MEQ/L (3.5-5.1); TOTAL PROTEIN 6.7 GM/DL (6.4-8.2)
== END ==
LOC: M LAB 08:54
PROVIDERS: ATTEND Dermatology
DX: Z79.899 Other long term (current) drug therapy (principal)

== ENCOUNTER → 2020-08-22 | Outpatient (CLI) | payer MEDICARE ==
--- NOTE | 2020-08-22 13:17 | REPMRS ---
Patient History The patient states she has not had a clinical breast exam in over a year. Patient is postmenopausal. No known family history of cancer. No Hormone Replacement Therapy 3D TOMOSYNTHESIS WAS PERFORMED. [facility] lifetime risk for breast cancer is 5.5%. Volpara breast density b. Digital Woman Screen Mammo: August 22, 2020 - Exam #: [id number] Bilateral CC and MLO view(s) were taken. Technologist: Ally Rahman, Technologist Prior study comparison: August 19, 2019, bilateral digital mammo screening bilat, performed at [facility]. April 27, 2012, bilateral digital mammo screening bilat, performed at [facility]. FINDINGS: There are scattered fibroglandular densities. There has been no change in the appearance of the mammogram from the prior studies. There is a mild amount of residual fibroglandular tissue which is fairly symmetric. There is no interval development of dominant mass, architectural distortion, or clustered microcalcification suggestive of malignancy. Assessment: BI-RADS/ACR category 1 mammogram. Negative Mammogram. Recommendation Routine screening mammogram in 1 year (for women over age 40). This mammogram was interpreted with the aid of an FDA-approved computer-aided dectection system. Electronically Signed By: Martinez Thomas MD 08/22/20 [id number]
== END ==
LOC: M WHC 12:21
PROVIDERS: ATTEND Family Medicine
DX: Z12.31 Encounter for screening mammogram for malignant neoplasm of breast (principal)

== ENCOUNTER → 2020-10-01 | Outpatient (CLI) | payer MEDICARE ==
[2020-10-01 10:19] LABS: HEMATOCRIT 45.8 % (36.0-47.0); HEMOGLOBIN 14.5 g/dl (12.0-15.5); MEAN CORPUSCULAR HEMOGLOBIN 30.1 pg (27.0-33.0); MEAN CORPUSCULAR HGB CONC 31.7 g/dl (32.0-36.5); PLATELET COUNT, AUTOMATED 196 10^3/uL (150-450); RED BLOOD COUNT 4.82 10^6/uL (4.00-5.40); WHITE BLOOD COUNT 9.7 10^3/uL (4.0-10.0)
[2020-10-01 10:43] LABS: ALBUMIN 3.7 GM/DL (3.2-5.2); BILIRUBIN,TOTAL 0.8 MG/DL (0.2-1.0); CALCIUM LEVEL 9.5 MG/DL (8.8-10.2); CREATININE FOR GFR 1.18 MG/DL (0.55-1.30); GLOMERULAR FILTRATION RATE 48.8 (>45); POTASSIUM SERUM 3.9 MEQ/L (3.5-5.1); TOTAL PROTEIN 7.3 GM/DL (6.4-8.2)
== END ==
LOC: M LAB 09:24
PROVIDERS: ATTEND Dermatology
DX: Z79.899 Other long term (current) drug therapy (principal)

== ENCOUNTER → 2020-12-31 | Outpatient (CLI) | payer MEDICARE ==
[2020-12-31 10:27] LABS: BASO % 0.4 % (0.0-1.0); EOS # 0.3 10^3/uL (0.0-0.5); EOS % 3.3 % (0.0-3.0); HEMATOCRIT 40.2 % (36.0-47.0); HEMOGLOBIN 12.8 g/dl (12.0-15.5); LYMPH % 11.1 % (24.0-44.0); MEAN CORPUSCULAR HEMOGLOBIN 30.8 pg (27.0-33.0); MEAN CORPUSCULAR HGB CONC 31.8 g/dl (32.0-36.5); MEAN CORPUSCULAR VOLUME 96.9 fl (80.0-96.0); MONO # 0.8 10^3/uL (0.0-0.8); MONO % 8.5 % (2.0-8.0); NEUTROPHILS # 7.1 10^3/uL (1.5-8.5); NEUTROPHILS % 76.3 % (36.0-66.0); PLATELET COUNT, AUTOMATED 234 10^3/uL (150-450); RED BLOOD COUNT 4.15 10^6/uL (4.00-5.40); WHITE BLOOD COUNT 9.3 10^3/uL (4.0-10.0)
[2020-12-31 11:00] LABS: ALBUMIN 3.6 GM/DL (3.2-5.2); BILIRUBIN,TOTAL 0.6 MG/DL (0.2-1.0); CALCIUM LEVEL 9.4 MG/DL (8.8-10.2); CREATININE FOR GFR 1.05 MG/DL (0.55-1.30); GLOMERULAR FILTRATION RATE 55.8 (>45); POTASSIUM SERUM 3.6 MEQ/L (3.5-5.1)
== END ==
LOC: M LAB 09:31
PROVIDERS: ATTEND Dermatology
DX: Z79.899 Other long term (current) drug therapy (principal)

== ENCOUNTER → 2021-03-15 | Outpatient (CLI) | payer MEDICARE ==
[2021-03-15 13:05] LABS: ALBUMIN 4.1 GM/DL (3.2-5.2); ALT/SGPT 34 U/L (12-78); BILIRUBIN,TOTAL 1.1 MG/DL (0.2-1.0); BLOOD UREA NITROGEN 14 MG/DL (7-18); CALCIUM LEVEL 9.8 MG/DL (8.8-10.2); CARBON DIOXIDE LEVEL 32 MEQ/L (21-32); CHLORIDE LEVEL 101 MEQ/L (98-107); CHOLESTEROL LEVEL 271 MG/DL (<200); CHOLESTEROL RISK RATIO 3.304 (<5); CREATININE FOR GFR 0.95 MG/DL (0.55-1.30); GLOMERULAR FILTRATION RATE > 60.0 (>45); GLUCOSE, FASTING 88 MG/DL (70-100); HDL CHOLESTEROL 82 MG/DL (>40); LDL CHOLESTEROL 150 MG/DL (<100); MAGNESIUM LEVEL 2.1 MG/DL (1.8-2.4); NON-HDL-C 189 MG/DL; POTASSIUM SERUM 3.7 MEQ/L (3.5-5.1); SODIUM LEVEL 140 MEQ/L (136-145); TOTAL PROTEIN 7.9 GM/DL (6.4-8.2); TRIGLYCERIDES LEVEL 196 MG/DL (<150)
== END ==
LOC: M LAB 11:24
PROVIDERS: ATTEND Physician Assistant
DX: E78.2 Mixed hyperlipidemia (principal); I48.0 Paroxysmal atrial fibrillation

== ENCOUNTER → 2021-04-18 | Outpatient (CLI) | payer MEDICARE ==
[~2021-04-18] MED LIST changes: -DOXY100C37 PO; +DOXY1CAP62 PO
--- NOTE | 2021-04-22 15:40 | SLEEPHOME ---
DATE: 04/18/2021 ORDERED BY: BERNARDA Doty Diagnostic home sleep testing was performed due to concern for the obstructive sleep apnea syndrome. For testing, a nocturnal T3 respiratory monitoring device was used. Continuous record was made of pulse, oxygen saturation, air flow, chest and abdominal strain, and body position. Nine hours and 59 minutes of data were reviewed. There were 5 hours and 16 minutes marked as time in bed. During the interval marked time in bed, there were 62 respiratory events identified of 10 seconds in duration or greater for a respiratory event index of 11.8. The events were primarily obstructive. Baseline pulse rate was 90. Pulse rate ranged 22 to 108. Baseline saturation was 91%. Saturations fell to 83%. Testing was performed in both the supine and nonsupine positions. IMPRESSION: Abnormal home sleep testing with repetitive respiratory events and oxygen desaturations to 83% with a respiratory event index of 11.8 is consistent with the obstructive sleep apnea syndrome. RECOMMENDATION: The patient should be encouraged to undergo a formal sleep evaluation.
== END ==
LOC: M SLEEP HO 10:28
PROVIDERS: ATTEND Physician Assistant
DX: G47.9 Sleep disorder, unspecified (principal)

== ENCOUNTER → 2021-07-26 | Outpatient (CLI) | payer MEDICARE ==
[~2021-07-26] MED LIST changes: -KLOR10TA76 PO; +POTA-136 PO
[2021-07-26 11:45] LABS: HEMATOCRIT 41.7 % (36.0-47.0); HEMOGLOBIN 13.8 g/dl (12.0-15.5); MEAN CORPUSCULAR HGB CONC 33.1 g/dl (32.0-36.5); MEAN CORPUSCULAR VOLUME 99.8 fl (80.0-96.0); PLATELET COUNT, AUTOMATED 209 10^3/uL (150-450); RED BLOOD COUNT 4.18 10^6/uL (4.00-5.40); WHITE BLOOD COUNT 6.4 10^3/uL (4.0-10.0)
[2021-07-26 12:17] LABS: ALBUMIN 3.2 GM/DL (3.2-5.2); ALT/SGPT 34 U/L (12-78); BILIRUBIN,TOTAL 0.5 MG/DL (0.2-1.0); BLOOD UREA NITROGEN 12 MG/DL (7-18); CARBON DIOXIDE LEVEL 31 MEQ/L (21-32); CHLORIDE LEVEL 102 MEQ/L (98-107); CREATININE FOR GFR 0.95 MG/DL (0.55-1.30); GLOMERULAR FILTRATION RATE > 60.0 (>45); GLUCOSE, FASTING 99 MG/DL (70-100); POTASSIUM SERUM 3.7 MEQ/L (3.5-5.1); SODIUM LEVEL 141 MEQ/L (136-145); TOTAL PROTEIN 6.4 GM/DL (6.4-8.2)
== END ==
LOC: M LAB 10:38
PROVIDERS: ATTEND Physician Assistant
DX: Z51.81 Encounter for therapeutic drug level monitoring (principal); Z79.899 Other long term (current) drug therapy

== ENCOUNTER → 2021-09-03 | Outpatient (CLI) | payer MEDICARE ==
[~2021-09-03] MED LIST changes: +DOXY-443 PO; -DOXY1CAP62 PO
--- NOTE | 2021-09-03 13:12 | REPMRS ---
Patient History The patient states she has not had a clinical breast exam in over a year. No known family history of cancer. No Hormone Replacement Therapy Tomosynthesis is performed. Volpara breast density is a. [facility]%. Patient states no breast complaints today. Patient has signed MRS History Sheet. Digital Woman Screen Mammo: September 03, 2021 - Exam #: [id number] Bilateral CC and MLO view(s) were taken. Technologist: Madisyn Mueller Technologist Prior study comparison: August 22, 2020, bilateral digital woman screen mammo performed at [facility]. August 19, 2019, bilateral digital mammo screening bilat, performed at [facility]. FINDINGS: There are scattered fibroglandular densities. There has been no change in the appearance of the mammogram from the prior studies. There is a mild amount of residual fibroglandular tissue which is fairly symmetric. There is no interval development of dominant mass, architectural distortion, or clustered microcalcification suggestive of malignancy. Assessment: BI-RADS/ACR category 1 mammogram. Negative Mammogram. Recommendation Routine screening mammogram in 1 year (for women over age 40). This mammogram was interpreted with the aid of an FDA-approved computer-aided dectection system. Electronically Signed By: Martinez Thomas MD 09/03/21 [id number]
== END ==
LOC: M WHC 11:51
PROVIDERS: ATTEND Family Medicine
DX: Z12.31 Encounter for screening mammogram for malignant neoplasm of breast (principal)

== ENCOUNTER → 2022-01-23 | Outpatient (CLI) | payer MEDICARE ==
[2022-01-23 11:55] LABS: HEMATOCRIT 40.7 % (36.0-47.0); HEMOGLOBIN 13.5 g/dl (12.0-15.5); MEAN CORPUSCULAR HEMOGLOBIN 32.9 pg (27.0-33.0); MEAN CORPUSCULAR HGB CONC 33.2 g/dl (32.0-36.5); MEAN CORPUSCULAR VOLUME 99.3 fl (80.0-96.0); PLATELET COUNT, AUTOMATED 208 10^3/uL (150-450); WHITE BLOOD COUNT 7.4 10^3/uL (4.0-10.0)
[2022-01-23 12:39] LABS: ALBUMIN 3.4 GM/DL (3.2-5.2); BILIRUBIN,TOTAL 0.5 MG/DL (0.2-1.0); CALCIUM LEVEL 8.8 MG/DL (8.8-10.2); CREATININE FOR GFR 1.1 MG/DL (0.55-1.30); GLOMERULAR FILTRATION RATE 52.7 (>45); POTASSIUM SERUM 3.5 MEQ/L (3.5-5.1); TOTAL PROTEIN 6.7 GM/DL (6.4-8.2)
== END ==
LOC: M LAB 10:47
PROVIDERS: ATTEND Physician Assistant
DX: Z79.899 Other long term (current) drug therapy (principal)

== ENCOUNTER → 2022-02-19 | Outpatient (CLI) | payer MEDICARE ==
[2022-02-19 14:04] LABS: CHOLESTEROL RISK RATIO 3.272 (<5)
== END ==
LOC: M LAB 11:32
PROVIDERS: ATTEND Physician Assistant
DX: E78.2 Mixed hyperlipidemia (principal)

== ENCOUNTER → 2022-04-04 | Outpatient (CLI) | payer MEDICARE ==
[~2022-04-04] MED LIST changes: +ALBU2.5V10 INH; -ALBU83IN INH; +ATOR40TA75 PO
== END ==
LOC: M LABSMTC 09:46
PROVIDERS: ATTEND Anesthesiology
DX: Z20.822 Contact with and (suspected) exposure to COVID-19 (principal)

== ENCOUNTER 2022-04-09 09:47 | Day surgery (SDC) | payer MEDICARE ==
[~2022-04-09] VITALS: Ht 162.6 cm; Wt 92.5 kg
[~2022-04-09 09:47] MED LIST changes: +LIDOCAINE 2% 100MG/5ML SDV (FOR ANES.) As Ordered ONE; +NS 1,000 ML IV ONE; +propofoL 200 MG/20 ML VIAL As Ordered ONE
[2022-04-09 11:53] VITALS: BP 166/76
== END 2022-04-09 11:55 | disposition home or self-care (01) ==
LOC: M OPP 09:47
PROVIDERS: ATTEND Internal Medicine Gastroenterology
DX: D12.0 Benign neoplasm of cecum (principal); K63.5 Polyp of colon; K57.30 Diverticulosis of large intestine without perforation or abscess without bleeding; K64.0 First degree hemorrhoids; Z86.010 Personal history of colon polyps; Z79.02 Long term (current) use of antithrombotics/antiplatelets; Z79.1 Long term (current) use of non-steroidal anti-inflammatories (NSAID); Z79.52 Long term (current) use of systemic steroids; Z79.899 Other long term (current) drug therapy; Z95.818 Presence of other cardiac implants and grafts

== ENCOUNTER 2022-05-29 12:13 | Emergency (ER) | payer MEDICARE ==
[~2022-05-29] VITALS: Ht 165.1 cm; Wt 91.7 kg
[~2022-05-29 12:13] MED LIST changes: -LIDOCAINE 2% 100MG/5ML SDV (FOR ANES.) As Ordered ONE; -NS 1,000 ML IV ONE; -propofoL 200 MG/20 ML VIAL As Ordered ONE
[2022-05-29] MEDS ORDERED: COLC0.6T47 PO (15:42)
[2022-05-29] MEDS ORDERED: COLCHICINE 0.6 MG TABLET PO ONE (15:45)
[2022-05-29 15:49] VITALS: BP 142/74
== END 2022-05-29 15:59 | disposition home or self-care (01) ==
LOC: M ED 12:13
DX: M10.9 Gout, unspecified (principal); I10 Essential (primary) hypertension; J44.9 Chronic obstructive pulmonary disease, unspecified; I50.9 Heart failure, unspecified; I48.91 Unspecified atrial fibrillation; E78.5 Hyperlipidemia, unspecified; Z87.09 Personal history of other diseases of the respiratory system; Z88.1 Allergy status to other antibiotic agents; Z79.899 Other long term (current) drug therapy; Z79.01 Long term (current) use of anticoagulants

== ENCOUNTER → 2022-07-11 | Outpatient (CLI) | payer MEDICARE ==
[~2022-07-11] MED LIST changes: +COLC0.6T47 PO
[2022-07-11 13:20] LABS: BASO % 0.6 % (0.0-1.0); EOS # 0.3 10^3/uL (0.0-0.5); EOS % 4.7 % (0.0-3.0); HEMATOCRIT 40.4 % (36.0-47.0); HEMOGLOBIN 12.9 g/dl (12.0-15.5); LYMPH # 1.1 10^3/uL (1.5-5.0); LYMPH % 17.3 % (24.0-44.0); MEAN CORPUSCULAR HEMOGLOBIN 30.4 pg (27.0-33.0); MEAN CORPUSCULAR HGB CONC 31.9 g/dl (32.0-36.5); MEAN CORPUSCULAR VOLUME 95.3 fl (80.0-96.0); MONO # 0.5 10^3/uL (0.0-0.8); MONO % 8.3 % (2.0-8.0); NEUTROPHILS # 4.4 10^3/uL (1.5-8.5); NEUTROPHILS % 68.8 % (36.0-66.0); PLATELET COUNT, AUTOMATED 239 10^3/uL (150-450); RED BLOOD COUNT 4.24 10^6/uL (4.00-5.40); WHITE BLOOD COUNT 6.4 10^3/uL (4.0-10.0)
== END ==
LOC: M LAB 11:41
PROVIDERS: ATTEND Physician Assistant
DX: I48.0 Paroxysmal atrial fibrillation (principal); E78.5 Hyperlipidemia, unspecified

== ENCOUNTER → 2022-07-24 | Outpatient (CLI) | payer MEDICARE | LOC: M LAB 11:13 | PROVIDERS: ATTEND Physician Assistant | DX: L40.0 Psoriasis vulgaris (principal) ==

== ENCOUNTER 2022-08-08 09:53 | Emergency (ER) | payer MEDICARE ==
[~2022-08-08] VITALS: Ht 165.1 cm; Wt 91.0 kg
[2022-08-08] MEDS ORDERED: CLOP75TA2 (10:11)
[2022-08-08] MEDS ORDERED: ASPI81TA26 (10:11)
[2022-08-08 13:29] LABS: BASO % 0.4 % (0.0-1.0); EOS # 0.4 10^3/uL (0.0-0.5); EOS % 5.3 % (0.0-3.0); HEMATOCRIT 36.9 % (36.0-47.0); HEMOGLOBIN 11.6 g/dl (12.0-15.5); LYMPH # 1.2 10^3/uL (1.5-5.0); LYMPH % 16.5 % (24.0-44.0); MEAN CORPUSCULAR HEMOGLOBIN 29.7 pg (27.0-33.0); MEAN CORPUSCULAR HGB CONC 31.4 g/dl (32.0-36.5); MEAN CORPUSCULAR VOLUME 94.6 fl (80.0-96.0); MONO # 0.6 10^3/uL (0.0-0.8); MONO % 8.2 % (2.0-8.0); NEUTROPHILS % 69.2 % (36.0-66.0); PLATELET COUNT, AUTOMATED 226 10^3/uL (150-450); WHITE BLOOD COUNT 7.3 10^3/uL (4.0-10.0)
[2022-08-08 13:49] LABS: ERYTHROCYTE SEDIMENTATION RATE 34 mm/hr (0-30)
[2022-08-08 14:30] LABS: ALBUMIN 3.4 GM/DL (3.2-5.2); BILIRUBIN,DIRECT 0.2 MG/DL (0.0-0.2); BILIRUBIN,TOTAL 0.8 MG/DL (0.2-1.0); C REACTIVE PROTEIN QUANTITATIV 1.91 MG/DL (0.00-0.30); CALCIUM LEVEL 9.1 MG/DL (8.8-10.2); CREATININE FOR GFR 0.99 MG/DL (0.55-1.30); GLOMERULAR FILTRATION RATE 59.4 (>45); POTASSIUM SERUM 4.1 MEQ/L (3.5-5.1); TOTAL PROTEIN 7.1 GM/DL (6.4-8.2)
[2022-08-08 15:17] VITALS: BP 154/96
== END 2022-08-08 16:03 | disposition home or self-care (01) ==
LOC: M ED 09:53
DX: S80.01XA Contusion of right knee, initial encounter (principal); W19.XXXA Unspecified fall, initial encounter; I45.19 Other right bundle-branch block; I48.91 Unspecified atrial fibrillation; I50.9 Heart failure, unspecified; I10 Essential (primary) hypertension; J44.9 Chronic obstructive pulmonary disease, unspecified; G47.33 Obstructive sleep apnea (adult) (pediatric); K21.9 Gastro-esophageal reflux disease without esophagitis; K44.9 Diaphragmatic hernia without obstruction or gangrene; K57.92 Diverticulitis of intestine, part unspecified, without perforation or abscess without bleeding; Z95.818 Presence of other cardiac implants and grafts; Z79.899 Other long term (current) drug therapy; Z88.1 Allergy status to other antibiotic agents

== ENCOUNTER → 2022-09-19 | Outpatient (CLI) | payer MEDICARE ==
[~2022-09-19] MED LIST changes: +ASPI81TA26; +CLOP75TA2
== END ==
LOC: M WHC 11:02
PROVIDERS: ATTEND Family Medicine
DX: Z12.31 Encounter for screening mammogram for malignant neoplasm of breast (principal)

== ENCOUNTER → 2022-10-06 | Outpatient (CLI) | payer MEDICARE | LOC: M RAD 09:40 | PROVIDERS: ATTEND Orthopaedic Surgery Adult Reconstructive Orthopaedic Surgery | DX: M17.11 Unilateral primary osteoarthritis, right knee (principal) | CPT/HCPCS: 78315; A9503 ==

== ENCOUNTER 2023-01-26 09:41 | Inpatient (IN) | payer MEDICARE ==
[~2023-01-26] VITALS: Ht 165.1 cm; Wt 92.7 kg
[~2023-01-26 09:41] MED LIST changes: +APRE30TA3 PO; -ASPI81TA26; +ASPI81TA26 PO; -COSE1INJ4; +COSE1INJ4 SC; -OTEZ1TAB3 PO
[2023-01-26 10:25] LABS: BASO # 0.1 10^3/uL (0.0-0.2); BASO % 0.6 % (0.0-1.0); EOS # 0.2 10^3/uL (0.0-0.5); EOS % 2.2 % (0.0-3.0); HEMATOCRIT 40.9 % (36.0-47.0); LYMPH # 0.9 10^3/uL (1.5-5.0); LYMPH % 8.6 % (24.0-44.0); MEAN CORPUSCULAR HEMOGLOBIN 30.3 pg (27.0-33.0); MEAN CORPUSCULAR HGB CONC 31.8 g/dl (32.0-36.5); MEAN CORPUSCULAR VOLUME 95.3 fl (80.0-96.0); MONO # 1.2 10^3/uL (0.0-0.8); MONO % 10.9 % (2.0-8.0); NEUTROPHILS # 8.2 10^3/uL (1.5-8.5); NEUTROPHILS % 77.2 % (36.0-66.0); PLATELET COUNT, AUTOMATED 187 10^3/uL (150-450); RED BLOOD COUNT 4.29 10^6/uL (4.00-5.40); WHITE BLOOD COUNT 10.6 10^3/uL (4.0-10.0)
[2023-01-26 10:40] LABS: INR 0.98; PROTHROMBIN TIME 13.2 SECONDS (12.5-14.5)
[2023-01-26 10:41] LABS: PARTIAL THROMBOPLASTIN TIME 27.1 SECONDS (24.8-34.2)
[2023-01-26] MEDS ORDERED: METOPROLOL TART 50 MG TAB PO ONE (10:45)
[2023-01-26 10:56] LABS: LIPASE 18 U/L (12-53)
[2023-01-26 10:57] LABS: CPK CREATINE PHOSPHOKINASE 44 U/L (34-145)
[2023-01-26 11:01] LABS: ALBUMIN 3.4 G/DL (3.2-5.2); ALKALINE PHOSPHATASE 102 U/L (46-116); ALT/SGPT 9 U/L (7.0-40); AST/SGOT 10 U/L (<34); BILIRUBIN,DIRECT 0.4 MG/DL (<0.4); BILIRUBIN,TOTAL 1.5 MG/DL (0.3-1.2); BLOOD UREA NITROGEN 15 MG/DL (9-23); CALCIUM LEVEL 9.5 MG/DL (8.3-10.6); CARBON DIOXIDE LEVEL 32 MMOL/L (20-31); CHLORIDE LEVEL 97 MMOL/L (98-107); CK-MB VALUE MASS < 1.0 NG/ML (<3.6); CREATININE FOR GFR 1.03 MG/DL (0.55-1.30); FREE T4 0.98 NG/DL (0.89-1.76); GLOMERULAR FILTRATION RATE 56.7 (>45); GLUCOSE, FASTING 103 MG/DL (74-106); MB/CK RELATIVE INDEX 2.27 (< OR =4); POTASSIUM SERUM 3.4 MMOL/L (3.5-5.1); SODIUM LEVEL 136 MMOL/L (136-145); THYROID STIMULATING HORMONE 2.359 uIU/ML (0.55-4.78); TOTAL PROTEIN 6.7 G/DL (5.7-8.2)
[2023-01-26] MEDS: METOPROLOL 5 MG/5 ML VIAL IV SCH ×3 (11:04→11:15)
[2023-01-26 11:44] LABS: RSV AMPLIFICATION NEGATIVE (NEGATIVE)
[2023-01-26] MEDS ORDERED: DIGOXIN INJ 0.5 MG/2 ML AMP IV STA ×2 (12:23→13:48)
[2023-01-26] MEDS ORDERED: POTASSIUM CHLORIDE 10MEQ SR TABLET PO ONE (13:50)
[2023-01-26 14:22] LABS: CK-MB VALUE MASS < 1.0 NG/ML (<3.6)
[2023-01-26 14:25] LABS: CPK CREATINE PHOSPHOKINASE 31 U/L (34-145); MB/CK RELATIVE INDEX 3.22 (< OR =4)
[2023-01-26] MEDS ORDERED: AMIODARONE HCL 150 MG in IV 1 EA IV STA (16:18)
[2023-01-26] MEDS ORDERED: DIGOXIN INJ 0.5 MG/2 ML AMP IV ONE (20:00)
[2023-01-26] MEDS ORDERED: VENTAER INH (20:07)
[2023-01-26] MEDS ORDERED: FOLI400T13 PO (20:11)
[2023-01-26] MEDS ORDERED: MAGN250T7 PO (20:11)
[2023-01-26] MEDS ORDERED: HOME MED LIST COMPLETE! XX SCH (20:15)
[2023-01-26] MEDS: bisoproloL fumarate 5 MG TAB PO SCH (20:17)
[2023-01-26] MEDS ORDERED: SYMBICORT 160/4.5MCG INHALER 6GM INH PRN (20:25)
[2023-01-26] MEDS: ATORVASTATIN 20 MG TAB PO SCH (21:00)
[2023-01-26] MEDS: IPRATROPIUM 0.5MG/ALBUTEROL 2.5MG INH SOL UD 3ML (DUONEB) NEB PRN (23:03)
[2023-01-27] MEDS ORDERED: diltiaZEM 125 MG in NS 100 ML IV SCH (02:00)
[2023-01-27] MEDS ORDERED: DIGOXIN INJ 0.5 MG/2 ML AMP IV ONE (02:00)
[2023-01-27] MEDS ORDERED: FUROSEMIDE 40 MG TAB PO SCH (06:00)
[2023-01-27] MEDS: bisoproloL fumarate 5 MG TAB PO SCH ×3 (06:07→21:00)
[2023-01-27 07:16] LABS: HEMATOCRIT 36.9 % (36.0-47.0); HEMOGLOBIN 11.9 g/dl (12.0-15.5); MEAN CORPUSCULAR HEMOGLOBIN 30.6 pg (27.0-33.0); MEAN CORPUSCULAR HGB CONC 32.2 g/dl (32.0-36.5); MEAN CORPUSCULAR VOLUME 94.9 fl (80.0-96.0); PLATELET COUNT, AUTOMATED 179 10^3/uL (150-450); RED BLOOD COUNT 3.89 10^6/uL (4.00-5.40); WHITE BLOOD COUNT 8.9 10^3/uL (4.0-10.0)
[2023-01-27 07:43] LABS: DIGOXIN LEVEL 1.3 NG/ML (0.8-2.0)
[2023-01-27 08:06] LABS: ALBUMIN 2.9 G/DL (3.2-5.2); ALKALINE PHOSPHATASE 85 U/L (46-116); ALT/SGPT < 9 U/L (7.0-40); AST/SGOT 9 U/L (<34); BILIRUBIN,TOTAL 0.9 MG/DL (0.3-1.2); BLOOD UREA NITROGEN 15 MG/DL (9-23); CALCIUM LEVEL 9.1 MG/DL (8.3-10.6); CARBON DIOXIDE LEVEL 29 MMOL/L (20-31); CHLORIDE LEVEL 100 MMOL/L (98-107); CREATININE FOR GFR 0.89 MG/DL (0.55-1.30); GLOMERULAR FILTRATION RATE > 60.0 (>45); GLUCOSE, FASTING 96 MG/DL (74-106); MAGNESIUM LEVEL 1.8 MG/DL (1.8-2.4); POTASSIUM SERUM 3.6 MMOL/L (3.5-5.1); SODIUM LEVEL 136 MMOL/L (136-145); TOTAL PROTEIN 5.8 G/DL (5.7-8.2)
[2023-01-27] MEDS: IPRATROPIUM 0.5MG/ALBUTEROL 2.5MG INH SOL UD 3ML (DUONEB) NEB PRN ×3 (08:26→21:05)
[2023-01-27] MEDS: ENOXAPARIN 40MG/0.4ML SYRINGE (J1650 PER 10MG) SC SCH (08:45)
[2023-01-27] MEDS: ASPIRIN 81MG ENTERIC TABLET PO SCH (08:47)
[2023-01-27] MEDS ORDERED: DIGOXIN 0.25 MG TAB PO SCH (09:00)
[2023-01-27] MEDS ORDERED: ASPIRIN 81MG ENTERIC TABLET PO SCH (09:00)
[2023-01-27] MEDS ORDERED: AMIODARONE 200 MG TAB (PACERONE) PO SCH (09:00)
[2023-01-27] MEDS ORDERED: NS 1,000 ML IV SCH (09:40)
[2023-01-27] MEDS ORDERED: MAG SULF 1GM/100ML (MAG RUN) 1 GM in IV 1 EA IV ONE (10:00)
[2023-01-27] MEDS: KCL 10MEQ/100ML SWI (KRUN) 10 MEQ in IV 1 EA IV SCH ×2 (11:31→12:33)
[2023-01-27 13:40] VITALS: BP 122/69
[2023-01-27 15:45] VITALS: BP 107/62
[2023-01-27 20:23] VITALS: BP 109/62
[2023-01-27] MEDS: ATORVASTATIN 20 MG TAB PO SCH (21:00)
[2023-01-28 01:25] VITALS: BP 102/65
[2023-01-28 04:37] VITALS: BP 106/56
[2023-01-28 05:48] LABS: HEMATOCRIT 34.3 % (36.0-47.0); HEMOGLOBIN 11.1 g/dl (12.0-15.5); MEAN CORPUSCULAR HEMOGLOBIN 30.9 pg (27.0-33.0); MEAN CORPUSCULAR HGB CONC 32.4 g/dl (32.0-36.5); MEAN CORPUSCULAR VOLUME 95.5 fl (80.0-96.0); PLATELET COUNT, AUTOMATED 171 10^3/uL (150-450); RED BLOOD COUNT 3.59 10^6/uL (4.00-5.40); WHITE BLOOD COUNT 6.8 10^3/uL (4.0-10.0)
[2023-01-28 06:00] VITALS: BP 119/59
[2023-01-28 06:18] VITALS: BP 119/59
[2023-01-28] MEDS: bisoproloL fumarate 5 MG TAB PO SCH (06:18)
[2023-01-28 06:24] LABS: ALBUMIN 2.7 G/DL (3.2-5.2); ALKALINE PHOSPHATASE 81 U/L (46-116); ALT/SGPT 10 U/L (7.0-40); AST/SGOT 12 U/L (<34); BILIRUBIN,TOTAL 0.7 MG/DL (0.3-1.2); BLOOD UREA NITROGEN 14 MG/DL (9-23); CALCIUM LEVEL 8.9 MG/DL (8.3-10.6); CARBON DIOXIDE LEVEL 26 MMOL/L (20-31); CHLORIDE LEVEL 103 MMOL/L (98-107); CREATININE FOR GFR 0.91 MG/DL (0.55-1.30); GLOMERULAR FILTRATION RATE > 60.0 (>45); GLUCOSE, FASTING 109 MG/DL (74-106); MAGNESIUM LEVEL 1.8 MG/DL (1.8-2.4); POTASSIUM SERUM 3.7 MMOL/L (3.5-5.1); SODIUM LEVEL 136 MMOL/L (136-145); TOTAL PROTEIN 5.5 G/DL (5.7-8.2)
[2023-01-28] MEDS ORDERED: POTASSIUM CHLORIDE 10MEQ SR TABLET PO ONE (07:40)
[2023-01-28] MEDS: IPRATROPIUM 0.5MG/ALBUTEROL 2.5MG INH SOL UD 3ML (DUONEB) NEB PRN (07:51)
[2023-01-28 07:58] VITALS: BP 117/61
[2023-01-28 08:00] VITALS: BP 117/65
[2023-01-28] MEDS: MAG SULF 1GM/100ML (MAG RUN) 1 GM in IV 1 EA IV SCH ×2 (08:45→10:15)
[2023-01-28] MEDS: ENOXAPARIN 40MG/0.4ML SYRINGE (J1650 PER 10MG) SC SCH (08:45)
[2023-01-28] MEDS: ASPIRIN 81MG ENTERIC TABLET PO SCH (08:45)
[2023-01-28] MEDS ORDERED: CARD180C4 PO (10:15)
[2023-01-28] MEDS ORDERED: BISO10TA14 PO (10:18)
== END 2023-01-28 12:18 | disposition home or self-care (01) | DRG 309 ==
LOC: M ED 09:41 → M ED INP 17:40 → ENRESERV 01-27 12:41 → M PCU 01-27 13:26
PROVIDERS: ADMIT Internal Medicine; ATTEND Internal Medicine
DX: I48.91 Unspecified atrial fibrillation (principal); I50.32 Chronic diastolic (congestive) heart failure; I13.0 Hypertensive heart and chronic kidney disease with heart failure and stage 1 through stage 4 chronic kidney disease, or unspecified chronic kidney disease; J44.9 Chronic obstructive pulmonary disease, unspecified; E78.5 Hyperlipidemia, unspecified; N18.9 Chronic kidney disease, unspecified; L40.9 Psoriasis, unspecified; E83.42 Hypomagnesemia; E87.6 Hypokalemia; Z95.828 Presence of other vascular implants and grafts; Z87.891 Personal history of nicotine dependence; Z79.899 Other long term (current) drug therapy

== ENCOUNTER → 2023-03-06 | Outpatient (CLI) | payer MEDICARE ==
[~2023-03-06] MED LIST changes: +BISO10TA14 PO; +CARD180C4 PO; +FOLI400T13 PO; +MAGN250T7 PO
[2023-03-06 14:52] LABS: ALBUMIN 3.6 G/DL (3.2-5.2); CALCIUM LEVEL 9.1 MG/DL (8.3-10.6); CREATININE FOR GFR 1.03 MG/DL (0.55-1.30); GLOMERULAR FILTRATION RATE 56.7 (>45); PHOSPHORUS LEVEL 3.8 MG/DL (2.4-5.1); POTASSIUM SERUM 3.9 MMOL/L (3.5-5.1)
== END ==
LOC: M LAB 13:08
PROVIDERS: ATTEND Internal Medicine Cardiovascular Disease
DX: I50.23 Acute on chronic systolic (congestive) heart failure (principal)

== ENCOUNTER 2023-03-27 12:06 | Emergency (ER) | payer MEDICARE ==
[~2023-03-27] VITALS: Ht 165.1 cm; Wt 91.5 kg
[2023-03-27] MEDS ORDERED: NS 500 ML IV ONE (12:35)
[2023-03-27] MEDS: METOPROLOL 5 MG/5 ML VIAL IV SCH ×3 (12:46→13:13)
[2023-03-27 12:55] LABS: BASO % 0.4 % (0.0-1.0); EOS # 0.5 10^3/uL (0.0-0.5); EOS % 4.8 % (0.0-3.0); HEMATOCRIT 40.6 % (36.0-47.0); HEMOGLOBIN 13.2 g/dl (12.0-15.5); LYMPH # 1.3 10^3/uL (1.5-5.0); LYMPH % 13.5 % (24.0-44.0); MEAN CORPUSCULAR HEMOGLOBIN 30.8 pg (27.0-33.0); MEAN CORPUSCULAR HGB CONC 32.5 g/dl (32.0-36.5); MEAN CORPUSCULAR VOLUME 94.6 fl (80.0-96.0); MONO # 0.7 10^3/uL (0.0-0.8); MONO % 7.1 % (2.0-8.0); NEUTROPHILS % 73.6 % (36.0-66.0); PLATELET COUNT, AUTOMATED 202 10^3/uL (150-450); RED BLOOD COUNT 4.29 10^6/uL (4.00-5.40); WHITE BLOOD COUNT 9.5 10^3/uL (4.0-10.0)
[2023-03-27 13:49] LABS: ALBUMIN 3.9 G/DL (3.2-5.2); BILIRUBIN,DIRECT 0.1 MG/DL (<0.4); BILIRUBIN,TOTAL 0.6 MG/DL (0.3-1.2); CALCIUM LEVEL 9.3 MG/DL (8.3-10.6); CK-MB VALUE MASS 1.3 NG/ML (<3.6); CREATININE FOR GFR 1.02 MG/DL (0.55-1.30); FREE T4 0.99 NG/DL (0.89-1.76); GLOMERULAR FILTRATION RATE 57.2 (>45); MAGNESIUM LEVEL 1.7 MG/DL (1.8-2.4); POTASSIUM SERUM 4.5 MMOL/L (3.5-5.1); THYROID STIMULATING HORMONE 1.565 uIU/ML (0.55-4.78); TOTAL PROTEIN 7.4 G/DL (5.7-8.2)
[2023-03-27 15:38] LABS: MB/CK RELATIVE INDEX 1.21 (< OR =4)
[2023-03-27] MEDS ORDERED: DILT120C78 PO (15:55)
[2023-03-27 16:00] VITALS: BP 141/98
[2023-03-27 16:01] VITALS: BP 141/98
== END 2023-03-27 16:08 | disposition home or self-care (01) ==
LOC: M ED 12:06
DX: I48.91 Unspecified atrial fibrillation (principal); I50.20 Unspecified systolic (congestive) heart failure; J44.9 Chronic obstructive pulmonary disease, unspecified; I10 Essential (primary) hypertension; N17.9 Acute kidney failure, unspecified; E78.5 Hyperlipidemia, unspecified; Z88.1 Allergy status to other antibiotic agents; Z79.899 Other long term (current) drug therapy; Z79.82 Long term (current) use of aspirin; Z79.51 Long term (current) use of inhaled steroids

== ENCOUNTER → 2023-06-17 | Outpatient (CLI) | payer MEDICARE ==
[~2023-06-17] MED LIST changes: +DILT120C78 PO
== END ==
LOC: M RAD 09:01
PROVIDERS: ATTEND Internal Medicine Critical Care Medicine
DX: J84.10 Pulmonary fibrosis, unspecified (principal); Z87.891 Personal history of nicotine dependence

== ENCOUNTER → 2023-10-07 | Outpatient (CLI) | payer MEDICARE | LOC: M WHC 09:44 | PROVIDERS: ATTEND Family Medicine | DX: Z12.31 Encounter for screening mammogram for malignant neoplasm of breast (principal) ==

== ENCOUNTER → 2023-12-01 | Outpatient (CLI) | payer MEDICARE ==
[2023-12-01 10:50] LABS: HEMATOCRIT 38.3 % (36.0-47.0); HEMOGLOBIN 12.2 g/dl (12.0-15.5); MEAN CORPUSCULAR HGB CONC 31.9 g/dl (32.0-36.5); MEAN CORPUSCULAR VOLUME 94.1 fl (80.0-96.0); PLATELET COUNT, AUTOMATED 225 10^3/uL (150-450); RED BLOOD COUNT 4.07 10^6/uL (4.00-5.40)
[2023-12-01 11:16] LABS: HEMOGLOBIN A1c 5.4 % (4.0-6.0)
[2023-12-01 11:17] LABS: ALBUMIN 3.4 G/DL (3.2-5.2); BILIRUBIN,TOTAL 0.6 MG/DL (0.3-1.2); CALCIUM LEVEL 9.6 MG/DL (8.3-10.6); CHOLESTEROL RISK RATIO 2.81 (<5); CREATININE FOR GFR 1.17 MG/DL (0.55-1.30); GLOMERULAR FILTRATION RATE 48.8 (>45); HDL CHOLESTEROL 69.9 MG/DL (>40); LDL CHOLESTEROL 97.1 MG/DL (<100); NON-HDL-C 127.1 MG/DL; POTASSIUM SERUM 3.9 MMOL/L (3.5-5.1); TOTAL PROTEIN 6.7 G/DL (5.7-8.2)
[2023-12-01 11:21] LABS: THYROID STIMULATING HORMONE 1.641 uIU/ML (0.55-4.78); TOTAL 25(OH) VITAMIN D 17.5 NG/ML (20.0-100.0)
== END ==
LOC: M LAB 09:19
PROVIDERS: ATTEND Family Medicine
DX: D64.9 Anemia, unspecified (principal); E03.9 Hypothyroidism, unspecified; R53.83 Other fatigue; Z79.899 Other long term (current) drug therapy

== ENCOUNTER → 2024-02-03 | Outpatient (CLI) | payer MEDICARE | LOC: M SLEEP HO 01-29 10:31 | PROVIDERS: ATTEND Internal Medicine Critical Care Medicine | DX: G47.33 Obstructive sleep apnea (adult) (pediatric) (principal) ==

== ENCOUNTER → 2024-05-10 | Outpatient (CLI) | payer MEDICARE ==
[~2024-05-10] MED LIST changes: +DOXY-323 PO; -DOXY-443 PO
[2024-05-10 11:07] LABS: BASO % 0.4 % (0.0-1.0); EOS # 0.8 10^3/uL (0.0-0.5); HEMATOCRIT 40.7 % (36.0-47.0); HEMOGLOBIN 13.5 g/dl (12.0-15.5); LYMPH # 0.9 10^3/uL (1.5-5.0); LYMPH % 10.2 % (24.0-44.0); MEAN CORPUSCULAR HEMOGLOBIN 33.3 pg (27.0-33.0); MEAN CORPUSCULAR HGB CONC 33.2 g/dl (32.0-36.5); MEAN CORPUSCULAR VOLUME 100.2 fl (80.0-96.0); MONO # 0.8 10^3/uL (0.0-0.8); MONO % 8.3 % (2.0-8.0); NEUTROPHILS # 6.5 10^3/uL (1.5-8.5); NEUTROPHILS % 71.6 % (36.0-66.0); PLATELET COUNT, AUTOMATED 186 10^3/uL (150-450); RED BLOOD COUNT 4.06 10^6/uL (4.00-5.40); WHITE BLOOD COUNT 9.1 10^3/uL (4.0-10.0)
[2024-05-10 11:41] LABS: ALBUMIN 3.5 G/DL (3.2-5.2); ALKALINE PHOSPHATASE 80 U/L (46-116); ALT/SGPT 13 U/L (7.0-40); AST/SGOT 13 U/L (<34); BILIRUBIN,TOTAL 0.7 MG/DL (0.3-1.2); BLOOD UREA NITROGEN 12 MG/DL (9-23); CARBON DIOXIDE LEVEL 34 MMOL/L (20-31); CHLORIDE LEVEL 103 MMOL/L (98-107); CREATININE FOR GFR 0.85 MG/DL (0.55-1.30); GLOMERULAR FILTRATION RATE > 60.0 (>39); GLUCOSE, FASTING 104 MG/DL (74-106); POTASSIUM SERUM 4.4 MMOL/L (3.5-5.1); SODIUM LEVEL 140 MMOL/L (136-145); TOTAL PROTEIN 6.3 G/DL (5.7-8.2)
== END ==
LOC: M LAB 10:02
PROVIDERS: ATTEND Internal Medicine Cardiovascular Disease
DX: I48.4 Atypical atrial flutter (principal); I50.32 Chronic diastolic (congestive) heart failure; I11.0 Hypertensive heart disease with heart failure; I35.0 Nonrheumatic aortic (valve) stenosis; I27.81 Cor pulmonale (chronic)

== ENCOUNTER → 2024-07-01 | Outpatient (CLI) | payer MEDICARE | LOC: M SLEEP 20:00 | PROVIDERS: ATTEND Internal Medicine Critical Care Medicine | DX: G47.33 Obstructive sleep apnea (adult) (pediatric) (principal) ==

== ENCOUNTER → 2024-08-01 | Outpatient (CLI) | payer MEDICARE | LOC: M RAD 12:29 | PROVIDERS: ATTEND Internal Medicine Critical Care Medicine | DX: Z87.891 Personal history of nicotine dependence (principal) ==

== ENCOUNTER → 2024-09-01 | Outpatient (CLI) | payer MEDICARE ==
[~2024-09-01] MED LIST changes: -DOXY-323 PO; +DOXY-441 PO
[2024-09-01 12:03] LABS: HEMATOCRIT 40.6 % (36.0-47.0); HEMOGLOBIN 13.3 g/dl (12.0-15.5); MEAN CORPUSCULAR HEMOGLOBIN 31.9 pg (27.0-33.0); MEAN CORPUSCULAR HGB CONC 32.8 g/dl (32.0-36.5); MEAN CORPUSCULAR VOLUME 97.4 fl (80.0-96.0); PLATELET COUNT, AUTOMATED 226 10^3/uL (150-450); RED BLOOD COUNT 4.17 10^6/uL (4.00-5.40); WHITE BLOOD COUNT 10.1 10^3/uL (4.0-10.0)
[2024-09-01 12:21] LABS: ALBUMIN 3.5 G/DL (3.2-5.2); ALKALINE PHOSPHATASE 79 U/L (35-104); ALT/SGPT 16 U/L (7.0-40); AST/SGOT 11 U/L (<34); BILIRUBIN,TOTAL 0.8 MG/DL (0.3-1.2); BLOOD UREA NITROGEN 12 MG/DL (9-23); CALCIUM LEVEL 9.8 MG/DL (8.3-10.6); CARBON DIOXIDE LEVEL 33 MMOL/L (20-31); CHLORIDE LEVEL 103 MMOL/L (98-107); CHOLESTEROL LEVEL 228 MG/DL (<200); CREATININE FOR GFR 0.93 MG/DL (0.55-1.30); GLOMERULAR FILTRATION RATE > 60.0 (>39); GLUCOSE, FASTING 110 MG/DL (74-106); HDL CHOLESTEROL 55.5 MG/DL (>40); LDL CHOLESTEROL 128.7 MG/DL (<100); NON-HDL-C 172.5 MG/DL; POTASSIUM SERUM 3.9 MMOL/L (3.5-5.1); SODIUM LEVEL 141 MMOL/L (136-145); THYROID STIMULATING HORMONE 2.955 uIU/ML (0.55-4.78); TOTAL 25(OH) VITAMIN D 59.5 NG/ML (20.0-100.0); TOTAL PROTEIN 6.7 G/DL (5.7-8.2); TRIGLYCERIDES LEVEL 219 MG/DL (<150)
[2024-09-01 12:51] LABS: HEMOGLOBIN A1c 5.4 % (4.0-6.0)
== END ==
LOC: M RAD 11:04
PROVIDERS: ATTEND Family Medicine
DX: I10 Essential (primary) hypertension (principal)

== ENCOUNTER → 2024-10-14 | Outpatient (CLI) | payer MEDICARE | LOC: M WHC 10:30 | PROVIDERS: ATTEND Family Medicine | DX: Z12.31 Encounter for screening mammogram for malignant neoplasm of breast (principal) ==

== ENCOUNTER → 2024-11-03 | Outpatient (CLI) | payer MEDICARE | LOC: M WHC 10:09 | PROVIDERS: ATTEND Family Medicine | DX: N63.12 Unspecified lump in the right breast, upper inner quadrant (principal) ==

== ENCOUNTER → 2024-11-15 | Outpatient (CLI) | payer MEDICARE ==
[2024-11-15 11:11] LABS: BASO % 0.4 % (0.0-1.0); EOS # 0.6 10^3/uL (0.0-0.5); EOS % 8.3 % (0.0-3.0); HEMATOCRIT 39.1 % (36.0-47.0); HEMOGLOBIN 13.2 g/dl (12.0-15.5); LYMPH % 13.2 % (24.0-44.0); MEAN CORPUSCULAR HGB CONC 33.8 g/dl (32.0-36.5); MEAN CORPUSCULAR VOLUME 94.9 fl (80.0-96.0); MONO # 0.6 10^3/uL (0.0-0.8); MONO % 8.3 % (2.0-8.0); PLATELET COUNT, AUTOMATED 201 10^3/uL (150-450); RED BLOOD COUNT 4.12 10^6/uL (4.00-5.40); WHITE BLOOD COUNT 7.2 10^3/uL (4.0-10.0)
[2024-11-15 11:34] LABS: ALBUMIN 3.4 G/DL (3.2-5.2); ALKALINE PHOSPHATASE 78 U/L (35-104); ALT/SGPT 16 U/L (7.0-40); AST/SGOT 14 U/L (<34); BILIRUBIN,TOTAL 0.6 MG/DL (0.3-1.2); BLOOD UREA NITROGEN 17 MG/DL (9-23); CALCIUM LEVEL 9.2 MG/DL (8.3-10.6); CARBON DIOXIDE LEVEL 34 MMOL/L (20-31); CHLORIDE LEVEL 101 MMOL/L (98-107); CREATININE FOR GFR 0.82 MG/DL (0.55-1.30); GLOMERULAR FILTRATION RATE > 60.0 (>39); GLUCOSE, FASTING 102 MG/DL (74-106); POTASSIUM SERUM 4.6 MMOL/L (3.5-5.1); SODIUM LEVEL 140 MMOL/L (136-145); TOTAL PROTEIN 6.6 G/DL (5.7-8.2)
== END ==
LOC: M LAB 10:29
PROVIDERS: ATTEND Internal Medicine Cardiovascular Disease
DX: I48.4 Atypical atrial flutter (principal)

== ENCOUNTER → 2024-12-20 | Outpatient (CLI) | payer MEDICARE | LOC: M WHC 10:24 | PROVIDERS: ATTEND Student in an Organized Health Care Education/Training Program | DX: Z13.820 Encounter for screening for osteoporosis (principal) ==

== ENCOUNTER → 2024-12-22 | Outpatient (CLI) | payer MEDICARE ==
[2024-12-22 09:41] VITALS: BP 142/74; TEMP 97.3; O2SAT 98
== END ==
LOC: M WHCPRO 09:29
PROVIDERS: ATTEND Student in an Organized Health Care Education/Training Program
DX: N63.10 Unspecified lump in the right breast, unspecified quadrant (principal)

== ENCOUNTER → 2025-02-21 | Outpatient (CLI) | payer MEDICARE ==
[2025-02-21 12:11] LABS: HEMATOCRIT 43.9 % (36.0-47.0); HEMOGLOBIN 14.5 g/dl (12.0-15.5); MEAN CORPUSCULAR HEMOGLOBIN 31.7 pg (27.0-33.0); MEAN CORPUSCULAR VOLUME 96.1 fl (80.0-96.0); PLATELET COUNT, AUTOMATED 221 10^3/uL (150-450); RED BLOOD COUNT 4.57 10^6/uL (4.00-5.40); WHITE BLOOD COUNT 10.7 10^3/uL (4.0-10.0)
[2025-02-21 12:31] LABS: HEMOGLOBIN A1c 5.1 % (4.0-6.0)
[2025-02-21 12:38] LABS: ALBUMIN 3.4 G/DL (3.2-5.2); BILIRUBIN,TOTAL 0.8 MG/DL (0.3-1.2); CALCIUM LEVEL 9.4 MG/DL (8.3-10.6); CHOLESTEROL RISK RATIO 3.71 (<5); CREATININE FOR GFR 0.85 MG/DL (0.55-1.30); GLOMERULAR FILTRATION RATE 73.7 (>39); HDL CHOLESTEROL 60.3 MG/DL (>40); LDL CHOLESTEROL 113.9 MG/DL (<100); NON-HDL-C 163.7 MG/DL; POTASSIUM SERUM 4.2 MMOL/L (3.5-5.1); TOTAL PROTEIN 6.7 G/DL (5.7-8.2)
[2025-02-21 12:40] LABS: THYROID STIMULATING HORMONE 1.609 uIU/ML (0.55-4.78)
== END ==
LOC: M LAB 11:44
PROVIDERS: ATTEND Student in an Organized Health Care Education/Training Program
DX: Z00.01 Encounter for general adult medical examination with abnormal findings (principal); E78.00 Pure hypercholesterolemia, unspecified

== ENCOUNTER → 2025-05-29 | Outpatient (CLI) | payer MEDICARE ==
[2025-05-29 12:57] LABS: CHOLESTEROL LEVEL 207.0 MG/DL (<200); CHOLESTEROL RISK RATIO 3.6 (<5); LDL CHOLESTEROL 114.3 MG/DL (<100); NON-HDL-C 149.5 MG/DL; TRIGLYCERIDES LEVEL 176.0 MG/DL (<150)
== END ==
LOC: M LAB 11:47
PROVIDERS: ATTEND Student in an Organized Health Care Education/Training Program
DX: E78.5 Hyperlipidemia, unspecified (principal)

== ENCOUNTER → 2025-05-29 | Outpatient (CLI) | payer MEDICARE ==
[2025-05-29 12:48] LABS: BASO # 0.1 10^3/uL (0.0-0.2); BASO % 0.6 % (0.0-1.0); EOS # 0.5 10^3/uL (0.0-0.5); EOS % 5.7 % (0.0-3.0); LYMPH # 1.4 10^3/uL (1.5-5.0); LYMPH % 15.4 % (24.0-44.0); MONO # 0.8 10^3/uL (0.0-0.8); MONO % 8.4 % (2.0-8.0); NEUTROPHILS # 6.2 10^3/uL (1.5-8.5); NEUTROPHILS % 69.5 % (36.0-66.0); PLATELET COUNT, AUTOMATED 192 10^3/uL (150-450)
[2025-05-29 13:03] LABS: CALCIUM LEVEL 9.5 MG/DL (8.3-10.6); CARBON DIOXIDE LEVEL 28.0 MMOL/L (20-31); CHLORIDE LEVEL 103.0 MMOL/L (98-107); CHOLESTEROL LEVEL 213.0 MG/DL (<200); CHOLESTEROL RISK RATIO 3.62 (<5); CREATININE FOR GFR 0.87 MG/DL (0.55-1.30); GLOMERULAR FILTRATION RATE 71.2 (>39); LDL CHOLESTEROL 118.1 MG/DL (<100); MAGNESIUM LEVEL 1.8 MG/DL (1.8-2.4); NON-HDL-C 154.3 MG/DL; PHOSPHORUS LEVEL 3.7 MG/DL (2.4-5.1); POTASSIUM SERUM 3.9 MMOL/L (3.5-5.1); SODIUM LEVEL 144.0 MMOL/L (136-145); TRIGLYCERIDES LEVEL 181.0 MG/DL (<150)
== END ==
LOC: M LAB 11:43
PROVIDERS: ATTEND Registered Nurse
DX: I50.32 Chronic diastolic (congestive) heart failure (principal); E78.2 Mixed hyperlipidemia

== ENCOUNTER → 2025-07-18 | Day surgery (SDC) | payer MEDICARE ==
[~2025-07-18] VITALS: Ht 162.6 cm; Wt 82.2 kg
[~2025-07-18] MED LIST changes: +ATEN100T PO; -COLC0.6T47 PO; +COLC0.6T53 PO; +DIGO0.253 PO; +DUPI300I SC; +EZET10TA57 PO; +LIDOCAINE 2% 100 MG/5 ML SDV (FOR ANES.) As Ordered ONE; +TREL1AER IN
[2025-07-18 09:33] VITALS: TEMP 97.2
[2025-07-18 09:51] VITALS: BP 146/66; O2SAT 98
== END | disposition home or self-care (01) ==
LOC: M OPP 07:42
PROVIDERS: ATTEND Surgery
DX: K44.9 Diaphragmatic hernia without obstruction or gangrene (principal); K29.70 Gastritis, unspecified, without bleeding; R12 Heartburn; I48.91 Unspecified atrial fibrillation; G47.30 Sleep apnea, unspecified; Z88.1 Allergy status to other antibiotic agents; Z88.8 Allergy status to other drugs, medicaments and biological substances; Z79.82 Long term (current) use of aspirin; Z79.51 Long term (current) use of inhaled steroids; Z79.899 Other long term (current) drug therapy

== ENCOUNTER → 2025-08-25 | Outpatient (CLI) | payer MEDICARE ==
[~2025-08-25] MED LIST changes: -LIDOCAINE 2% 100 MG/5 ML SDV (FOR ANES.) As Ordered ONE
== END ==
LOC: M RAD 12:56
PROVIDERS: ATTEND Internal Medicine Critical Care Medicine
DX: Z12.2 Encounter for screening for malignant neoplasm of respiratory organs (principal); Z87.891 Personal history of nicotine dependence; J84.10 Pulmonary fibrosis, unspecified; J43.9 Emphysema, unspecified

== ENCOUNTER → 2025-09-04 | Outpatient (REF) | payer MEDICARE ==
[2025-09-04 14:00] LABS: CHOLESTEROL LEVEL 196.0 MG/DL (<200); CHOLESTEROL RISK RATIO 3.34 (<5); LDL CHOLESTEROL 57.8 MG/DL (<100); NON-HDL-C 137.4 MG/DL; TRIGLYCERIDES LEVEL 398.0 MG/DL (<150)
== END ==
LOC: M LAB REF 12:40
PROVIDERS: ATTEND Student in an Organized Health Care Education/Training Program
DX: E78.5 Hyperlipidemia, unspecified (principal)

== ENCOUNTER → 2025-09-22 | Outpatient (CLI) | payer MEDICARE | LOC: M PLAIMG 09:48 | PROVIDERS: ATTEND Registered Nurse | DX: I50.32 Chronic diastolic (congestive) heart failure (principal); I35.0 Nonrheumatic aortic (valve) stenosis ==